=== PATIENT | female | born 1990 | race Caucasian/White ===

== ENCOUNTER 2022-05-17 11:56 | Outpatient (REF) | payer MEDICAID, SELFPAY ==
[2022-05-17 18:13] LABS: CT PCR NOT DETECTED (Not Detect.); NG PCR NOT DETECTED (Not Detect.)
[2022-05-18 13:00] LABS: BV Int Neg Control Negative (Negative); BV Int Pos Control Positive (Positive)
[2022-05-21 19:47] LABS: HPV mRNA E6/E7 rflx Not Detected (Not Detected)
== END 2022-05-17 11:57 | disposition home or self-care (01) ==
LOC: HO.LNP 11:56
PROVIDERS: Visit Provider Advanced Practice Midwife
DX: Z01.411 Encounter for gynecological examination (general) (routine) with abnormal findings (principal); Z11.51 Encounter for screening for human papillomavirus (HPV); N93.0 Postcoital and contact bleeding; R10.2 Pelvic and perineal pain; Z20.2 Contact with and (suspected) exposure to infections with a predominantly sexual mode of transmission
CPT/HCPCS: 87480; 87491; 87510; 87591; 87624; 87660; 88142

== ENCOUNTER 2022-07-02 12:51 | Outpatient (REF) | payer MEDICAID, SELFPAY ==
--- NOTE | ~2022-07-02 | US_ITS ---
EXAMINATION: US PELVIS CLINICAL INFORMATION: Post coital and contact bleeding. COMPARISON: Previous pelvic ultrasound most recent January 2017 TECHNIQUE: Ultrasound of the pelvis is performed using both transabdominal and transvaginal transducers along with Doppler. Transvaginal imaging is performed due to inadequate visualization transabdominally. FINDINGS: The uterus is anteverted and measures 9.7 x 5.5 x 7.2 cm in dimension. No focal uterine lesion. Endometrial thickness is normal measuring 0.9 cm. IUD on January 2017 exam no longer seen. The ovaries are normal. The right ovary measures 2.2 x 1.3 x 1.9 cm. The left ovary measures 2.8 x 1.9 x 1.6 cm. There is no fluid in the pelvis. US/US pelvic and transvaginal IMPRESSION: Normal pelvic ultrasound. IUD on January 2017 exam no longer seen.
== END 2022-07-02 12:52 | disposition home or self-care (01) ==
LOC: HO.US 12:51
PROVIDERS: PCP Family Medicine; Visit Provider Advanced Practice Midwife
DX: N93.0 Postcoital and contact bleeding (principal)
CPT/HCPCS: 76830; 76856

== ENCOUNTER 2023-05-27 11:17 | Outpatient (REF) | payer MEDICAID, SELFPAY ==
[2023-05-27 13:33] LABS: Alanine Aminotransferase 10 U/L (0-31); Alkaline Phosphatase 50 U/L (39-117); Anion Gap 11 (12-20); Aspartate Amino Transferase 15 U/L (5-31); Bilirubin Total 0.9 mg/dL (0.0-1.0); Blood Urea Nitrogen 10 mg/dL (9-16); Carbon Dioxide 23 mmol/L (22-29); Chloride 107 mmol/L (96-108); Cholesterol 186 mg/dL (<200); Estimated Glomerular Filt Rate > 60; Glucose Random 87 mg/dL (60-115); HDL Cholesterol 38 mg/dL (>40); LDL Cholesterol Calculated 121 mg/dL (<100); Sodium 137 mmol/L (135-145); Total Protein 7.5 g/dL (6.5-8.0); Triglycerides 135 mg/dL (<150)
[2023-05-29 19:38] LABS: TS Negative Control Passed; TS Panel A 0; TS Panel B 0; TS Positive Control Passed; TSpotTB Negative (Negative)
== END 2023-05-27 11:18 | disposition home or self-care (01) ==
LOC: HO.HHCL 11:17
PROVIDERS: Visit Provider Internal Medicine Geriatric Medicine
DX: Z00.00 Encounter for general adult medical examination without abnormal findings (principal); Z11.1 Encounter for screening for respiratory tuberculosis; Z13.1 Encounter for screening for diabetes mellitus; Z13.220 Encounter for screening for lipoid disorders
CPT/HCPCS: 36415; 80053; 80061; 86481

== ENCOUNTER 2023-06-18 18:33 | Outpatient (REF) | payer MEDICAID, SELFPAY | END 2023-06-18 18:34 | disposition home or self-care (01) | LOC: HO.HHCLNP 18:33 | PROVIDERS: Visit Provider Nurse Practitioner Family | DX: R07.0 Pain in throat (principal) | CPT/HCPCS: 87070 ==

== ENCOUNTER 2023-11-29 15:44 | Outpatient (REF) | payer MEDICAID, SELFPAY ==
[2023-11-30 09:26] LABS: CT PCR NOT DETECTED (Not Detect.); NG PCR NOT DETECTED (Not Detect.)
[2023-11-30 11:14] LABS: BV Int Neg Control Negative (Negative); BV Int Pos Control Positive (Positive)
[2023-12-06 22:14] LABS: HPV mRNA E6/E7 rflx Not Detected (Not Detected)
== END 2023-11-29 15:45 | disposition home or self-care (01) ==
LOC: HO.LNP 15:44
PROVIDERS: Visit Provider Advanced Practice Midwife
DX: Z12.4 Encounter for screening for malignant neoplasm of cervix (principal); Z11.51 Encounter for screening for human papillomavirus (HPV); N39.0 Urinary tract infection, site not specified; R10.2 Pelvic and perineal pain; N94.10 Unspecified dyspareunia
CPT/HCPCS: 0353U; 87480; 87510; 87624; 87660; 88142; 99212

== ENCOUNTER 2023-11-29 15:44 | Outpatient (AMB) | payer MEDICAID, SELFPAY ==
--- NOTE | 2023-11-29 15:50 | A.OFFVIS_ITS ---
Intake Vital Signs 11/29/23 16:01 Height 5 ft 5 in Weight 248 lb BMI 41.3 BP 124/76 Intake Visit Reasons: Pain with intercourse Guitar Maker Required: No Information Interpreted: non-clinical & clinical Wood Boatbuilder Apprentice: Wood Boatbuilder Apprentice Present (Neela PRUETT) Accompanied by: Self / Same As Patient Allergies polyethylene glycol 3350 [From Miralax] Allergy (Mild, Verified 11/29/23 15:54) Hives Is last menstrual period known: Yes Last menstrual period: 11/13/23 HPI HPI Comments History of Present Illness Details Patient is here today with complaints of pain with intimacy, bleeding with intimacy, heavy at times, occasional right lower quad pelvic pain. She is currently using condoms for contraception. 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 Sexual orientation: Straight/Heterosexual Gender identity: Female Female Reproductive History Menstrual Date of last menstrual period: 11/13/23 control method: condoms Review of Systems Const All systems reviewed & are unremarkable except as noted in HPI and below Physical Exam Vital Signs: Last Vital Signs BP 124/76 11/29/23 16:01 BMI result Body Mass Index 41.3 Const General: cooperative, healthy appearing and no acute distress Orientation/consciousness: patient oriented x3 GI Inspection: Yes normal to inspection Palpation (GI): Soft to palpation and Other GI palpation findings present (Nontender) Rectal Exam - Female: visual inspection normal General: Yes bladder normal to palpation External Female Exam: normal appearance of the urethra Speculum Exam - Vagina: normal appearance of the vagina, normal palpation and normal vaginal discharge Speculum Exam - Cervix: normal appearance of the cervix, normal palpation and Other cervical findings present (Ectopy with superficial blood vessels bled readily with Pap) Bimanual exam- vagina & uterus: normal bimanual exam, normal palpation, uterine size normal, bladder normal to palpation, normal palpation, uterine shape normal and non-tender Bimanual Exam- Adnexa, other: normal adnexae Neuro General: patient oriented x3 Assessment & Plan Assessment & Plan (1) PCB (post coital bleeding): Code(s): N93.0 - Postcoital and contact bleeding (2) Pelvic pain: Code(s): R10.2 - Pelvic and perineal pain (3) Dyspareunia, female: Code(s): N94.10 - Unspecified dyspareunia Plan Discussed: Workup to include pelvic ultrasound, cultures, Pap smear. Await results for plan of care follow up in person for results. Complete physical for annual exam at her follow up. All of her questions and concerns were addressed to the best of my ability and shared decision making. She is agreeable to the plan of care. This note is constructed using voice recognition software. While every effort has been made to ensure accuracy, director of infection prevention errors may have been included. Orders: Orders US pelvic and transvaginal Today N93.0 - Postcoital and contact bleeding, R10.2 - Pelvic and perineal pain Coding Level of Care Code Est Pt Level 4 (29838) Diagnoses PCB (post coital bleeding) N93.0 Pelvic pain R10.2 Dyspareunia, female N94.10
[2023-11-29 16:01] VITALS: BP 124/76; BMI 41.3
== END 2023-11-29 16:23 | disposition home or self-care (01) ==
LOC: HO.HWS 15:45
PROVIDERS: Visit Provider Advanced Practice Midwife
DX: N93.0 Postcoital and contact bleeding (principal); R10.2 Pelvic and perineal pain; N94.10 Unspecified dyspareunia
CPT/HCPCS: 99214

== ENCOUNTER 2023-12-18 11:01 | Outpatient (REF) | payer MEDICAID, SELFPAY ==
--- NOTE | ~2023-12-18 | US_ITS ---
EXAMINATION: US PELVIS CLINICAL INFORMATION: Pelvic and perineal pain, last menstrual period 12/16/2023. COMPARISON: 07/02/2022. TECHNIQUE: Ultrasound of the pelvis is performed using both transabdominal and transvaginal transducers along with Doppler. Transvaginal imaging is performed due to inadequate visualization transabdominally. FINDINGS: The uterus is anteverted and measures 11.2 x 3.7 x 0.4 cm. No discrete fibroids are appreciated. Nabothian cysts in the cervix. Double wall endometrial thickness is 10 mm. Limited visualization of uterine fundus. Endometrium appears heterogeneous. Limited visualization due to bowel gas and uterine positioning. No significant free fluid appreciated. Right ovary measures 3.1 x 1.4 x 2.0 cm, volume 4.5 mL. Left ovary measures 2.8 x 1.2 x 1.6 cm, volume 2.8 mL. Bilateral ovaries are grossly unremarkable; however, visualization is substantially limited. US/US pelvic and transvaginal IMPRESSION: 1. No discrete fibroids. 2. Endometrial thickness is 10 mm. Endometrium appears heterogeneous. 3. Bilateral ovaries are grossly unremarkable; however, visualization is substantially limited. 4. Nabothian cysts in the cervix.
== END 2023-12-18 11:02 | disposition home or self-care (01) ==
LOC: HO.US 11:01
PROVIDERS: PCP Family Medicine; Visit Provider Advanced Practice Midwife
DX: R10.2 Pelvic and perineal pain (principal); N93.0 Postcoital and contact bleeding
CPT/HCPCS: 76830; 76856

== ENCOUNTER 2024-01-01 15:53 | Outpatient (AMB) | payer MEDICAID, SELFPAY ==
[2024-01-01 15:56] VITALS: BP 90/64; BMI 41.3
--- NOTE | 2024-01-01 15:56 | MHC.OFFVIS ---
Vital Signs 01/01/24 15:56 Height 5 ft 5 in Weight 248 lb BMI 41.3 BP 90/64 Intake Visit Reasons: Ultra sound follow up Intake Note: pt declines breast exam today Engineering Design Manager: Engineering Design Manager Present Allergies polyethylene glycol 3350 [From Miralax] Allergy (Mild, Verified 01/01/24 15:56) Hives Is last menstrual period known: Yes HPI Comments Details: Patient is here today for a follow up ultrasound due to postcoital bleeding workup. She currently is still having postcoital bleeding. 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 Sexual orientation: Straight/Heterosexual Gender identity: Female Review of Systems Const All systems reviewed & are unremarkable except as noted in HPI and below Endo Reports no additional complaints Physical Exam Vital Signs: Last Vital Signs BP 90/64 01/01/24 15:56 BMI result Body Mass Index 41.3 Const General: cooperative, healthy appearing and no acute distress Psych Appearance: well kempt Attitude: cooperative Thought process: Normal thought process present Results Reviewed Results Reviewed: [address] [address] Ultrasound Report Signed Patient: Violeta Dong MR#: [id number] : 1990 Acct:[id number] Age/Sex: 33 / F ADM Date: 12/18/23 Loc: [facility].US Attending Dr: Tamia Rosario CNM Ordering Physician: Tamia Rosario CNM Date of Service: 12/18/23 Procedure(s): US pelvic and transvaginal Accession Number(s): [id number] cc: Eva Barajas DO; Tamia Rosario CNM~ EXAMINATION: US PELVIS CLINICAL INFORMATION: Pelvic and perineal pain, last menstrual period 12/16/2023. COMPARISON: 07/02/2022. TECHNIQUE: Ultrasound of the pelvis is performed using both transabdominal and transvaginal transducers along with Doppler. Transvaginal imaging is performed due to inadequate visualization transabdominally. FINDINGS: The uterus is anteverted and measures 11.2 x 3.7 x 0.4 cm. No discrete fibroids are appreciated. Nabothian cysts in the cervix. Double wall endometrial thickness is 10 mm. Limited visualization of uterine fundus. Endometrium appears heterogeneous. Limited visualization due to bowel gas and uterine positioning. No significant free fluid appreciated. Right ovary measures 3.1 x 1.4 x 2.0 cm, volume 4.5 mL. Left ovary measures 2.8 x 1.2 x 1.6 cm, volume 2.8 mL. Bilateral ovaries are grossly unremarkable; however, visualization is substantially limited. US/US pelvic and transvaginal IMPRESSION: 1. No discrete fibroids. 2. Endometrial thickness is 10 mm. Endometrium appears heterogeneous. 3. Bilateral ovaries are grossly unremarkable; however, visualization is substantially limited. 4. Nabothian cysts in the cervix. Dictated By: Maribell Muse MD Signed By: <Electronically signed by Maribell Muse MD in OV> 12/24/23 1137 DD/ 1208 TD/TT: Cash Poster: Assessment & Plan Assessment & Plan (1) Encounter to discuss test results: Code(s): Z71.2 - Person consulting for explanation of examination or test findings (2) PCB (post coital bleeding): Code(s): N93.0 - Postcoital and contact bleeding Plan Reviewed ultrasound findings, Pap and lab work all normal ranges. Plan next step is to do an endometrial biopsy and an ECC. Patient can not stay today for procedure and is agreed to reschedule an appointment for the biopsy. Counseled regarding pre procedure planning advised to eat and have something to drink and take 3 Advil 1 hour before her procedure time. All of her questions and concerns were addressed to the best of my ability. She is agreeable to the plan of care. This note is constructed using voice recognition software. While every effort has been made to ensure accuracy, concession supervisor errors may have been included. Coding Level of Care Code Est Pt Level 3 (08984) Diagnoses Encounter to discuss test results Z71.2 PCB (post coital bleeding) N93.0
== END 2024-01-01 16:24 | disposition home or self-care (01) ==
LOC: HO.HWS 15:53
PROVIDERS: PCP Family Medicine; Visit Provider Advanced Practice Midwife
DX: Z71.2 Person consulting for explanation of examination or test findings (principal); N93.0 Postcoital and contact bleeding
CPT/HCPCS: 99213

== ENCOUNTER → 2024-01-01 15:53 | Outpatient (BNVA) | payer MEDICAID, SELFPAY | PROVIDERS: PCP Family Medicine; Visit Provider Advanced Practice Midwife | DX: N93.0 Postcoital and contact bleeding (principal); Z71.2 Person consulting for explanation of examination or test findings | CPT/HCPCS: 99212 ==

== ENCOUNTER 2024-01-07 09:58 | Outpatient (REF) | payer MEDICAID, SELFPAY | END 2024-01-07 09:59 | disposition home or self-care (01) | LOC: HO.LAB 09:58 | PROVIDERS: PCP Family Medicine; Visit Provider Advanced Practice Midwife | DX: N93.0 Postcoital and contact bleeding (principal) | CPT/HCPCS: 58100; 81025; 88305 ==

== ENCOUNTER 2024-01-07 09:58 | Outpatient (AMB) | payer MEDICAID, SELFPAY ==
--- NOTE | 2024-01-07 10:05 | A.OFFVIS_ITS ---
Vital Signs 01/07/24 10:20 BP 98/66 Intake Visit Reasons: EMB/ECC/30 mins Climatology Professor: Climatology Professor Present (Sunita) Allergies polyethylene glycol 3350 [From Miralax] Allergy (Mild, Verified 01/07/24 10:20) Hives HPI Comments Details: Patient is here today for an EMB and ECC due to postcoital bleeding. 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 Sexual orientation: Straight/Heterosexual Gender identity: Female Review of Systems Const All systems reviewed & are unremarkable except as noted in HPI and below Physical Exam Vital Signs: Last Vital Signs BP 98/66 01/07/24 10:20 Const General: cooperative, healthy appearing and no acute distress Orientation/consciousness: patient oriented x3 GI Inspection: Yes normal to inspection Palpation (GI): Soft to palpation and Other GI palpation findings present (Nontender) Rectal Exam - Female: visual inspection normal General: Yes bladder normal to palpation External Female Exam: normal appearance of the urethra Speculum Exam - Vagina: normal appearance of the vagina, normal palpation and normal vaginal discharge Speculum Exam - Cervix: normal appearance of the cervix and normal palpation ([place] of ectopy) Bimanual exam- vagina & uterus: normal bimanual exam, normal palpation, uterine size normal, bladder normal to palpation, normal palpation ([place] of ectopy), uterine shape normal and non-tender Bimanual Exam- Adnexa, other: normal adnexae Neuro General: patient oriented x3 Office Procedures Endometrial Biopsy Details: The patient is here today for an endometrial biopsy and endocervical curettage due to post coital bleeding to rule out any pathology including atypical, hyperplasia or cancer cells of the uterus. She was counseled regarding anticipatory guidance for the procedure including the risks for pain, infection, bleeding, perforation, potential injury to the tissues may include the cervix, uterus, tubes, bladder and bowels. These injuries may include further treatment and evaluation including surgery, blood transfusions, antibiotics, hospitalizations and anesthesia. Permanent injury and scarring can occur. She was consented for the procedure, and the consent forms were signed. She is agreeable to have the procedure today. All questions were answered. Endometrial Biopsy Procedure: The patient was placed in the dorsal lithotomy position and a sterile speculum inserted. Using aseptic technique for the procedure. The cervix was cleansed with Betadine x 3 swabs. A single toothed tenaculum was placed on the cervix for stabilization and the uterus was sounded to 9 cm with a 4mm pipelle for 3 passes. Endocervical curettage completed on surfaces of the endocervical canal. Minimal bleeding was observed. The tissue sample was placed in formalin in a patient labeled container by staff assisting and sent to the pathology department for processing and interpretation. The patient tolerate the procedure well and was in good condition when leaving the department. Endometrial Biopsy Post Procedure Care: Nothing in the vagina including: tampons, douching or intimacy until all the bleeding has subsided. There may be some post procedure bleeding for several days, this bleeding is usually light and may turn to a light brown or pink color. Mild cramps may occurs. Nothing in the vaginal including: tampons, douching, or intimacy until all the b leeding has subsided. You may take an over the counter mild analgesic such as Tylenol or Advil (if no allergies) per the manufactures recommendation on dosing, frequency, and follow the directions completely. Call the office if any: fever (over 100.4), flu like symptoms, abdominal pain (worse than cramping), foul smelling, infected appearing vaginal discharge, or heavy bleeding. If indicated: Use condoms to prevent and STI's, and only after the bleeding has stopped completely. Return to the office in 2 weeks for results and plan of care. This note is constructed using voice recognition software. While every effort has been made to ensure accuracy, customer sales advisor errors may have been included. [id number] Biopsy Results AMB Test Urine AMB Test Urine Negative Last Edit by FLYNN Cooney on 01/07/24 10:21 Results Reviewed Results Reviewed: Laboratory Last Values [facility] Negative 01/07/24 10:20 Assessment & Plan Assessment & Plan (1) PCB (post coital bleeding): Code(s): N93.0 - Postcoital and contact bleeding Plan See procedure notes. Return to the office in 2 weeks for test. This note is constructed using voice recognition software. While every effort has been made to ensure accuracy, customer sales advisor errors may have been included. Orders: Orders AMB HCG Urine Test 01/07/24 Z32.02 - Encounter for test, result negative Surgical 01/07/24 N93.0 - Postcoital and contact bleeding Bacterial Vaginosis Panel 01/07/24 N89.8 - Other specified noninflammatory disorders of vagina Coding Level of Care Code Procedure Only Diagnoses PCB (post coital bleeding) N93.0 CPT Codes Endometrial Biopsy - CPT: 70250-Ejlrvbphdtn Biopsy ([id number]) Comment ECC completed add coding
[2024-01-07 10:20] VITALS: BP 98/66
== END 2024-01-07 10:59 | disposition home or self-care (01) ==
PROVIDERS: PCP Family Medicine; Visit Provider Advanced Practice Midwife
DX: N93.0 Postcoital and contact bleeding (principal)
CPT/HCPCS: 58100

== ENCOUNTER 2024-01-22 12:36 | Outpatient (AMB) | payer MEDICAID, SELFPAY ==
--- NOTE | 2024-01-22 12:37 | A.OFFVIS_ITS ---
Intake Visit Reasons: EMB/ECC Results Tripper Required: No Emergency Spill Response Technician: Emergency Spill Response Technician Present Allergies polyethylene glycol 3350 [From Miralax] Allergy (Mild, Verified 01/22/24 12:37) Hives Is last menstrual period known: Yes Last menstrual period: 01/17/24 Post menopausal: No Patient : No HPI Comments Details: [facility] visit 12:52-1:01. Phone call due to Covid 19 Pandemic. I spent 8 minutes speaking with the patient on the phone plus an additional 5 minutes reviewing the chart and 5 minutes updating the medical record for a total of 28 minutes. Patient presents via phone to discuss: Test results for EMB and ECC completed due to postcoital bleeding. Patient reports she still having symptoms. She was interested in cryotherapy treatment. 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 Sexual orientation: Straight/Heterosexual Gender identity: Female Female Reproductive History Menstrual Date of last menstrual period: 01/17/24 control method: condoms Review of Systems Const All systems reviewed & are unremarkable except as noted in HPI and below Endo Reports no additional complaints Physical Exam Const General: cooperative, healthy appearing and no acute distress Psych Appearance: well kempt Attitude: cooperative Thought process: Normal thought process present Telehealth Telehealth Telehealth Platform: [employer] Location of provider rendering services: practice address Location of patient: address on file Patient Identification confirmed using: Name, : Yes Telehealth method: video Patient verbally consented to treatment: Yes Patient verbally consented to billing insurance company: Yes Patient informed of any privacy concerns related to visit: Yes Results Reviewed Results Reviewed: ___ Name: Violeta Dong Age/Sex: 33/F Attending: Tamia Rosario CNM : 1990 Submitted by: Tamia Rosario CNM Copies to: Eva Barajas DO MR #: [id number] Status: DEP REF Collected: 01/07/24 [facility] Re[facility]: 01/07/24 Diagnosis A. Endometrium, biopsy: Early secretory endometrium; negative for atypia or hyperplasia. B. Endocervix, curettage: - Few superficial fragments of endocervical and squamous epithelium within normal limits. - Small fragment of benign endometrium. - No atypia identified. Clinical History PCB Microscopic Description A, B. Microscopic sections reviewed. Material Received A. EMB B. ECC Gross Description Received in two parts. Part A: Received in formalin labeled ?EMB? is a 2.0 x 2.0 x 0.5 cm aggregate of multiple irregular and tubular cast fragments of congested and hemorrhagic magana-pink and red-maroon tissue with scant mucus and blood, submitted in toto in a cassette labeled A. Part B: Received in formalin labeled ?ECC? is a 0.9 x 0.6 x 0.15 cm aggregate of predominantly mucus and blood and fragments of congested and hemorrhagic red-maroon tissue, submitted in toto in a cassette labeled B. CEDS Copies To Eva Barajas DO [address] [place] [address] Patient: Violeta Dong Age/Sex: 33/F MR#: [id number] Page 1 of 2 Assessment & Plan Assessment & Plan (1) Encounter to discuss test results: Code(s): Z71.2 - Person consulting for explanation of examination or test findings (2) PCB (post coital bleeding): Code(s): N93.0 - Postcoital and contact bleeding Plan Discussed: EMB and ECC findings per noted with report today. Options for treatment including cryotherapy(not offered here), electrocautery(more invasive), or boric acid therapy. She opts to do boric acid therapy at home using 600 mg capsules a boric acid nightly for 14 days. Boric acid protocol per BV use shared-reference to dose and where you can purchase the capsules. Follow up with office by contact after completing therapy to discuss results. If considering electrocautery therapy that can be provided here, if opting for cryotherapy referral will be placed to outside provider. All of her questions and concerns were addressed to the best of my ability and shared decision making. She is agreeable to the plan of care. Coding Level of Care Code Tele Est Pt Level 3 (68038) Diagnoses Encounter to discuss test results Z71.2 PCB (post coital bleeding) N93.0
== END 2024-01-22 13:33 | disposition home or self-care (01) ==
LOC: HO.HWS 12:36
PROVIDERS: PCP Family Medicine; Visit Provider Advanced Practice Midwife
DX: Z71.2 Person consulting for explanation of examination or test findings (principal); N93.0 Postcoital and contact bleeding
CPT/HCPCS: 99213

== ENCOUNTER → 2024-01-22 12:36 | Outpatient (BNVA) | payer MEDICAID, SELFPAY | PROVIDERS: PCP Family Medicine; Visit Provider Advanced Practice Midwife ==

== ENCOUNTER 2024-06-01 10:01 | Outpatient (REF) | payer MEDICAID, SELFPAY ==
[2024-06-04 02:24] LABS: TS Negative Control Passed; TS Panel A 0; TS Panel B 1; TS Positive Control Passed; TSpotTB Negative (Negative)
== END 2024-06-01 10:02 | disposition home or self-care (01) ==
LOC: HO.HHCL 10:01
PROVIDERS: Visit Provider Family Medicine
DX: Z00.00 Encounter for general adult medical examination without abnormal findings (principal); K21.9 Gastro-esophageal reflux disease without esophagitis; Z68.39 Body mass index [BMI] 39.0-39.9, adult; Z23 Encounter for immunization
CPT/HCPCS: 36415; 86481

== ENCOUNTER 2024-07-01 11:25 | Outpatient (REF) | payer MEDICAID, SELFPAY ==
[2024-07-01 13:21] LABS: Hematocrit 37.4 % (37.0-47.0); Hemoglobin 12.7 g/dl (12.0-16.0); Mean Corpuscular Hemoglobin 28.9 pg (27.0-33.0); Mean Corpuscular Volume 85.2 fL (80.0-98.0); Mean Platelet Volume 10.2 fL (9.4-12.3); Platelet Count 432 X10*3/uL (160-400); Red Blood Count 4.39 X10*6/uL (4.20-5.50); Red Cell Distribution Width 12.8 % (11.0-16.0); White Blood Count 10.2 X10*3/uL (4.8-10.8)
[2024-07-01 13:29] LABS: Estimated Average Glucose 105 mg/dL; Hemoglobin A1c % 5.3 % (<6.0); Total Hemoglobin (HGBA1C) 3353.0297 umol/L
[2024-07-01 13:50] LABS: Alanine Aminotransferase 14 U/L (0-31); Albumin Level 4.2 g/dL (3.5-5.0); Alkaline Phosphatase 47 U/L (39-117); Anion Gap 13 (12-20); Aspartate Amino Transferase 25 U/L (5-31); Bilirubin Direct 0.4 mg/dL (0.0-0.5); Bilirubin Total 1.5 mg/dL (0.0-1.0); Blood Urea Nitrogen 12 mg/dL (9-16); Calcium 9.2 mg/dL (8.4-10.2); Carbon Dioxide 24 mmol/L (22-29); Chloride 105 mmol/L (96-108); Cholesterol 172 mg/dL (<200); Estimated Glomerular Filt Rate > 60; Glucose Random 87 mg/dL (60-115); HDL Cholesterol 45 mg/dL (>40); LDL Cholesterol Calculated 103 mg/dL (<100); Potassium 3.7 mmol/L (3.3-5.1); Sodium 138 mmol/L (135-145); Total Protein 7.8 g/dL (6.5-8.0); Triglycerides 122 mg/dL (<150)
[2024-07-01 13:52] LABS: Free T4 (Free Thyroxine) 0.91 ng/dL (0.71-1.85); Vitamin D 25-OH Total 37.6 ng/mL (>30)
[2024-07-01 18:42] LABS: CT PCR NOT DETECTED (Not Detect.); NG PCR NOT DETECTED (Not Detect.)
[2024-07-02 08:21] LABS: Hepatitis A Antibody IgG REACTIVE (Nonreactive); ~Hepatitis A Antibody IgG 11.57 S/CO (0.00-0.99)
[2024-07-02 08:33] LABS: HBS Num1 > 1000.00 mIU/mL (0-7.99); HBc Num1 0.17 S/CO (0.00-0.79); HIV AB/AG Nonreactive (Nonreactive); HIV Num 1 0.06 S/CO (0.00-0.99); Hepatitis B Core Antibody Nonreactive (Nonreactive); Hepatitis B Surface Antigen Negative (Negative); ~HepC Num1 0.22 S/CO (0.00-0.79); ~Hepatitis B Surface Antibody REACTIVE (Nonreactive); ~Hepatitis C Antibody Nonreactive (Nonreactive)
[2024-07-02 20:59] LABS: Rubella IgG Antibody 2.28 Index; Rubeola IgG (Measles) >300.00 AU/mL
[2024-07-07 16:23] LABS: RPR Rapid Plasma Reagin NON-REACTIVE (NON-REACTIVE)
== END 2024-07-01 11:26 | disposition home or self-care (01) ==
LOC: HO.HHCL 11:25
PROVIDERS: Visit Provider Family Medicine
DX: Z00.00 Encounter for general adult medical examination without abnormal findings (principal); Z11.4 Encounter for screening for human immunodeficiency virus [HIV]; Z11.3 Encounter for screening for infections with a predominantly sexual mode of transmission; K21.9 Gastro-esophageal reflux disease without esophagitis
CPT/HCPCS: 36415; 80048; 80061; 80076; 82306; 83036; 84439; 84443; 85027; 86592; 86704; 86706; 86708; 86735; 86762; 86765; 86787; 86803; 87340; 87389; 87491; 87591

== ENCOUNTER 2025-02-17 12:43 | Outpatient (REF) | payer MEDICAID, SELFPAY ==
--- NOTE | ~2025-02-17 | XR_ITS ---
EXAMINATION: XR KNEE, LEFT CLINICAL INFORMATION: bl knee pain/ hx right knee arthosocopy 2010 + left knee sprain on 2020 COMPARISON: None available. TECHNIQUE: Three views of the left knee. FINDINGS: No fracture, dislocation, or suspicious bone lesion. Normal bone mineralization. Normal alignment. Mild to moderate medial compartment osteoarthrosis. Lateral and patellofemoral compartments appear preserved. No significant joint effusion. Soft tissues appear normal. XR/XR knee LT 3V IMPRESSION: 1. No acute bony abnormalities. No joint effusion. 2. Mild to moderate medial compartment osteoarthrosis. Electronically signed by: River Miller MD 02/17/2025 01:58 PM EDT
--- NOTE | ~2025-02-17 | XR_ITS ---
EXAMINATION: XR KNEE, RIGHT CLINICAL INFORMATION: bl knee pain/ hx right knee arthosocopy 2010 + left knee sprain on 2020 COMPARISON: None available. TECHNIQUE: Four views of the right knee. FINDINGS: No fracture, dislocation, or suspicious bone lesion. Normal bone mineralization. Normal alignment. Moderate medial compartment osteoarthrosis. Lateral and patellofemoral compartments appear preserved. No significant joint effusion. Soft tissues appear normal. XR/XR knee RT 3V IMPRESSION: 1. No acute bony abnormalities. No joint effusion. 2. Moderate medial compartment osteoarthrosis. Electronically signed by: River Miller MD 02/17/2025 01:56 PM EDT
--- OUTSIDE RECORDS SUMMARY | 2025-02-17 14:32 | XMS_ITS | Clinical Summary ---
Author Organization [employer] Address [address] [place] [address] [address] [place] [address] Care Team Providers Care Cartridge Filler Name Role Phone Eva Barajas DO Primary Care Provider + [phone] Allergies Active Allergy Reactions Criticality Noted Date Comments Polyethylene Glycol Dizziness,Hives,Shor tness of breath High 05/27/2023 Polyethylene Glycol 3350 Dizziness 05/01/2021 Other reaction(s): Hives, Nausea / Vomiting Medications meloxicam (Mobic) 15 MG tablet Take 1 tablet (15 mg) by mouth Once per day. 30 tablet 02/17/2025 Active Active Problems Problem Noted Date Diagnosed Date Sprain of right knee 02/17/2025 Assessment & Plan (02/17/2025 12:22 PM EDT): It seems that she has underlying OA getting worse over the past few years, rule out ligamentous or meniscal injury. We discussed treatment options to start with PT and advised to contact puncture, however she prefers to be referred to orthopedics. Will order x-rays and refer to orthopedics, advised weight reduction. Use meloxicam daily x 1 to 2 weeks and Tylenol as needed. Advised to use a hinged knee brace for daily activities Sprain of left knee 02/17/2025 Assessment & Plan (02/17/2025 12:23 PM EDT): Patient seems to have OA of both knees. We discussed treatment options to start with PT and advised to contact puncture, however she prefers to be referred to orthopedics. Will order x-rays and refer to orthopedics, advised weight reduction. Use meloxicam daily x 1 to 2 weeks and Tylenol as needed. 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 06/01/2024 Overview (05/27/2023): HRHS; nl chrs Encounters Date Type Department Care Team Description 02/17/2025 11:30 AM EDT Office Visit [facility] [address], [place] [phone] Cami King MD Sprain of right knee, unspecified ligament, initial encounter (Primary Dx); Sprain of left knee, unspecified ligament, initial encounter 02/17/2025 Travel 02/16/2025 Telephone [facility] [address] [place] [address] Eva Barajas DO Chart prep 02/15/2025 Telephone [facility] [address] [place] [address] Eva Barajas DO Referral from Last 3 Months Immunizations Immunization Administration Dates Next Due DTaP 07/11/2019, 2,07/09/1991,12/16,04/02/1990,01/31/1989 HPV, Quadrivalent 09/16/2007,03/28/2007 Hep B, Adolescent or Pediatric 2,11/15/2011,03/28/2007,11/02,07/03/2002 Hep B, adult 06/04/2012 IPV 07/09/1991, 1,04/02/1990,01/31 Influenza injectable quadriv alent IIV4 with preservative 07/07/2020,05/29/2016 Influenza injectable quadriv alent preservative free 05/27/2023,07/12/2021,07/11/2019,06/28,06/01/2017,07/25/2015 Influenza, Split (incl. melisa fied surface antigen) 06/04/2012 Influenza, seasonal, injecta ble, preservative free 06/01/2024,07/31/2014 MMR 10/23/2011,07/09/1992,12/16/1990 Meningococcal MCV4P ACYW-135 03/28/2007 Mumps 06/04/2012 Rubella 06/04/2012 Tdap 11/05/2011 Varicella 06/04/2012,10/23/2011,01/31/1995 Family History Medical History Relation Name Comments Hypoplastic Left Heart Syndrom Daughter MVA Father Diabetes Maternal Grandmother Heart disease Maternal Grandmother Hyperlipidemia Maternal Grandmother Hypertension Maternal Grandmother Hyperlipidemia Mother Hypertension Mother No Known Problems Other Relation Name Status Comments Daughter Father Maternal Grandmother Mother Other Social History Tobacco Use Types Packs/Day Years Used Date Smoking Tobacco: Never Smokeless Tobacco: Never Tobacco Cessation:Counseling Given: Not Answered Alcohol Use Standard Drinks/Week Comments Never 0 (1 standard drink = 0.6 oz pur e alcohol) Depression Answer Date Recorded Patient Health Questionnaire-9 Score 0 05/27/2023 Housing Stability Answer Date Recorded What is your housing situation today? I have jeweljose hernandez 06/17/[address] you li ve. Do you have problems with any of the following? None of the above 06/17/2023 Food Insecurity Answer Date Recorded Within the past 12 months, y ou worried that your food would run out before you got money to buy more: Never True 06/17/2023 Within the past 12 months,th e food you bought just didn't last and you didn't have enough money to get more: Never True Transportation Answer Date Recorded In the past 12 months, has l ack of transportation kept you from medical appts, meetings, work or from getting things needed for daily living? No 06/17/2023 Utilities Answer Date Recorded In the past 12 months, has t he electric, gas, oil or water company threatened to shut off services in your home? No 06/17/2023 Depression Answer Date Recorded Patient Health Questionnaire-2 Score 0 05/27/2023 Internet Access Answer Date Recorded Internet Access Q1 Yes 05/22/2024 Internet Access Q2 Not on file 05/22/2024 Comments No Sex and Gender Information Value Date Recorded Sex Assigned at Female 07/02/2022 10:17 AM EDT Legal Sex Female 10:17 AM EDT Gender Identity Female 07/02/2022 10:17 AM EDT Sexual Orientation Choose not to disclose 2022 11:33 AM EDT Sexual Orientation Straight 05/26/2023 11 :33 AM EDT Last Filed Vital Signs Vital Sign Reading Time Taken Comments Blood Pressure 110/70 02/17/2025 11:34 AM EDT Pulse 88 02/17/2025 11:34 AM EDT Temperature 36.3 C (97.3 F) 06/01/2024 9:20 AM EDT Respiratory Rate 16 02/17/2025 11:34 AM EDT Oxygen Saturation 99% 06/01/2024 9:20 AM EDT Inhaled Oxygen Concentration - - Weight 114 kg (251 lb) 02/17/2025 11:34 AM EDT Height 167.6 cm (5' 6 ) 02/17/2025 11:34 AM EDT Body Mass Index 40.51 02/17/2025 11:34 AM EDT Plan of Treatment Health Maintenance Due Date Last Done Comments Disability Screening 1988 Alcohol/Substance Use Screening 2000 Family Planning (PISQ) 2003 HPV Vaccines (3 - 3-dose series) 12/09/2007 09/16/2007, 03/28/2007 Pap Smear 2009 COVID-19 Vaccine ( season) 2024 Depression Screening 05/27/2024 05/27/2023, 05/27/20 23 SDOH Screening 05/22/2025 05/22/2024 Tobacco Screening 06/01/2025 06/01/2024 Cervical Cancer Screening 05/17/2027 HPV/Cotest 05/17/2027 05/17/2022, 05/17/2022 DTaP/Tdap/Td Vaccines (7 - Td or Tdap) 07/11/2029 07/11/2019, 11/05/2011, 05/05/1992, Additional history exists Zoster Vaccines (1 of 2) 2038 RSV Patients and Patients Aged 60 years or older (1 - 1-dose 75+ series) 2063 IPV Vaccines Completed 07/09/1991, 10/31, 04/02/1990, Additional history exists Meningococcal Vaccine Completed 03/28/2007 Hepatitis B Vaccines Completed 06/04/2012, 01/30/2012, 11/15/2011, Additional history exists Influenza Vaccine Completed 06/01/2024, , 07/12/2021, Additional history exists HIV Screening Completed 07/01/2024 Hepatitis C Screening Completed 07/01/2024 HIB Vaccines Aged Out No longer eligi ble based on patient's age to complete this topic Hepatitis A Vaccines Aged Out No long er eligible based on patient's age to complete this topic Meningococcal B Vaccine Aged Out No l onger eligible based on patient's age to complete this topic Pneumococcal Vaccine: Pediatrics (0 to 5 Years) and At-Risk Patients (6 to 49) Years Aged Out No longer eligible based on patient's age to complete this topic RSV under 20 months Aged Out No longe r eligible based on patient's age to complete this topic Rotavirus Vaccines Aged Out No longer eligible based on patient's age to complete this topic Procedures Procedure Name Priority Date/Time Associated Diagnosis Comments XR KNEE 3 VIEWS RIGHT Routine 02/17/2025 12:50 PM EDT Sprain of right knee, unspecified ligament, initial encounter Sprain of left knee, unspecified ligament, initial encounter XR KNEE 3 VIEWS LEFT Routine 02/17/2025 12:50 PM EDT Sprain of right knee, unspecified ligament, initial encounter Sprain of left knee, unspecified ligament, initial encounter HEPATITIS C AB W/REFL TO HCV RNA, QN, PCR Routine 07/01/2024 11:29 AM EDT Routine history and physical examination of adult Chronic gastroesophageal reflux disease BMI 39.0-39.9,adult Encounter for immunization HIV 1/2 ANTIGEN/ANTIBODY, FOURTH GENERATION W/RFL Routine 07/01/2024 11:29 AM EDT Routine history and physical examination of adult Chronic gastroesophageal reflux disease BMI 39.0-39.9,adult Encounter for immunization ZZZ HISTORICAL HPV E6/E7 RFLX KEKE 16 18/45 Routine 05/17/2022 11:56 AM EDT from Last 3 Months or Most Recently Relevant to Health Maintenance Results * XR Knee 3 Views Right (02/17/2025 12:50 PM EDT) Anatomical Region Laterality Modality Lower Extremities, Knee Right [facility] 02/17/2025 12:5 0 PM EDT Narrative 02/17/2025 1:59 PM EDT [address] [address] XRay Report Signed Patient: Violeta Dong MR#: [id number] 81 : 1990 Acct:[id number] Age/Sex: 34 / F ADM Date: 02/17/25 Loc: [facility] Attending Dr: Cami King MD Ordering Physician: Cami King MD Date of Service: 02/17/25 Procedure(s): XR knee RT 3V Accession Number(s): [id number] cc: Cami King MD EXAMINATION: XR KNEE, RIGHT CLINICAL INFORMATION: bl knee pain/ hx right knee arthosocopy 2010 + left knee sprain on 2020 COMPARISON: None available. TECHNIQUE: Four views of the right knee. FINDINGS: No fracture, dislocation, or suspicious bone lesion. Normal bone mineralization. Normal alignment. Moderate medial compartment osteoarthrosis. Lateral and patellofemoral compartments appear preserved. No significant joint effusion. Soft tissues appear normal. XR/XR knee RT 3V IMPRESSION: 1. No acute bony abnormalities. No joint effusion. 2. Moderate medial compartment osteoarthrosis. Electronically signed by: River Miller MD 02/17/2025 01:56 PM EDT Dictated By: River Miller MD Signed By: <Electronically signed by River Miller MD in OV> 02/17/25 1356 DD/ 1250 TD/TT: 02/17/25 1310 Production Supervisor Trainee: Procedure Note Donotuseinterpreter, Image - 02/17/[address] [address] XRay Report Signed Patient: Violeta Dong MMR#: [id number] 79 : 1990Acct:[id number] Age/Sex: 34 / FADM Date: 02/17/25 Loc: HO.XRAY Attending Dr: Cami King MD Ordering Physician: Cami King MD Date of Service: 02/17/25 Procedure(s): XR knee RT 3V Accession Number(s): [id number] cc: Cami King MD EXAMINATION: XR KNEE, RIGHT CLINICAL INFORMATION: bl knee pain/ hx right knee arthosocopy 2010 + left knee sprain on 2020 COMPARISON: None available. TECHNIQUE: Four views of the right knee. FINDINGS: No fracture, dislocation, or suspicious bone lesion. Normal bone mineralization. Normal alignment. Moderate medial compartment osteoarthrosis. Lateral and patellofemoral compartments appear preserved. No significant joint effusion. Soft tissues appear normal. XR/XR knee RT 3V IMPRESSION: 1. No acute bony abnormalities. No joint effusion. 2. Moderate medial compartment osteoarthrosis. Electronically signed by: River Miller MD 02/17/2025 01:56 PM EDT Dictated By: River Miller MD Signed By: <Electronically signed by River Miller MD in OV> 02/17/25 1356 DD/ 1250 TD/TT: 02/17/25 1310 Production Supervisor Trainee: Cami King MD IMG XR PROCEDURES Final Result * XR Knee 3 Views Left (02/17/2025 12:50 PM EDT) Anatomical Region Laterality Modality Lower Extremities, Knee Left Radiogra phic Imaging 02/17/2025 12:5 0 PM EDT Narrative 02/17/2025 2:01 PM EDT [address] [address] XRay Report Signed Patient: Violeta Dong MR#: [id number] 81 : 1990 Acct:[id number] Age/Sex: 34 / F ADM Date: 02/17/25 Loc: HO.XRAY Attending Dr: Cami King MD Ordering Physician: Cami King MD Date of Service: 02/17/25 Procedure(s): XR knee LT 3V Accession Number(s): [id number] cc: Cami King MD EXAMINATION: XR KNEE, LEFT CLINICAL INFORMATION: bl knee pain/ hx right knee arthosocopy 2010 + left knee sprain on 2020 COMPARISON: None available. TECHNIQUE: Three views of the left knee. FINDINGS: No fracture, dislocation, or suspicious bone lesion. Normal bone mineralization. Normal alignment. Mild to moderate medial compartment osteoarthrosis. Lateral and patellofemoral compartments appear preserved. No significant joint effusion. Soft tissues appear normal. XR/XR knee LT 3V IMPRESSION: 1. No acute bony abnormalities. No joint effusion. 2. Mild to moderate medial compartment osteoarthrosis. Electronically signed by: River Miller MD 02/17/2025 01:58 PM EDT Dictated By: River Miller MD Signed By: <Electronically signed by River Miller MD in OV> 02/17/25 1358 DD/ 1250 TD/TT: 02/17/25 1310 Production Supervisor Trainee: Procedure Note Donotuseinterpreter, Image - 02/17/2025 [place] [address] XRay Report Signed Patient: Violeta Dong [facility]#: [id number] 79 : 1990Acct:[id number] Age/Sex: 34 / FADM Date: 02/17/25 Loc: [facility] Attending Dr: Cami King MD Ordering Physician: Cami King MD Date of Service: 02/17/25 Procedure(s): XR knee LT 3V Accession Number(s): [id number] cc: Cami King MD EXAMINATION: XR KNEE, LEFT CLINICAL INFORMATION: bl knee pain/ hx right knee arthosocopy 2010 + left knee sprain on 2020 COMPARISON: None available. TECHNIQUE: Three views of the left knee. FINDINGS: No fracture, dislocation, or suspicious bone lesion. Normal bone mineralization. Normal alignment. Mild to moderate medial compartment osteoarthrosis. Lateral and patellofemoral compartments appear preserved. No significant joint effusion. Soft tissues appear normal. XR/XR knee LT 3V IMPRESSION: 1. No acute bony abnormalities. No joint effusion. 2. Mild to moderate medial compartment osteoarthrosis. Electronically signed by: River Miller MD 02/17/2025 01:58 PM EDT RP Dictated By: River Miller MD Signed By: <Electronically signed by River Miller MD in OV> 02/17/25 1358 DD/ 1250 TD/TT: 02/17/25 1310 Production Supervisor Trainee: us Cami King MD IMG XR PROCEDURES Final Result * Hepatitis C Antibody with Reflex to HCV, RNA, Quantitative, Real-Time PCR (07/01/2024 11:29 AM EDT) Pathologist [facility] Hepatitis C Antibody Nonreactive Nonreactive [facility] Comment:Antibodies to HCV no t detected; does not exclude early acuteHCV infection. Blood Venous blood specimen / Unknown 07/01/2024 11:29 AM EDT 07/01/2024 1:07 PM EDT us Eva Barajas DO LAB BLOOD ORDERABLES Final R esult [facility] [address] [place] [phone] * HIV-1/2 Antigen and Antibodies, Fourth Generation, with Reflexes (07/01/2024 11:29 AM EDT) HIV AB/AG Nonreactive Nonreactive [facility] Comment:HIV-1 p24 Ag and/or HIV-1/HIV-2 Ab not detected.A test result that is nonreactive does not exclude thepossibility of exposure to or infection with HIV-1 and/orHIV-2. Nonreactive results in this assay for individualswith prior exposure to HIV-1 and/or HIV-2 may be due toantigen and antibody levels that are below the limit ofdetection of this assay.The Zapleen[employer] HIV Ag/Ab Combo assay result andsupplemental assay results should be interpreted inconjunction with the patient's clinical presentation,history and other laboratory results. If the results areinconsistent with clinical evidence, additional testing issuggested to confirm the result. Blood Venous blood specimen / Unknown 07/01/2024 11:29 AM EDT 07/01/2024 1:07 PM EDT us Eva Barajas DO LAB BLOOD ORDERABLES Final R esult Performing Organization Address [facility]/ZIP Co de Phone Number [facility] [address] [place] [address] [phone] * HPV E6/E7 RFLX KEKE 16 18/45 (05/17/2022 11:56 AM EDT) Pathologist [facility] HPV mRNA E6/E7 rflx Not Detected Not Detected [facility] Comment: Methodology: Education And Training Coordinator-Mediated Amplification This assay detects E6/E7 viral messenger RNA (mRNA) from 14 high-risk HPV types (16,18,31,33,35,39,45,51,52,56,58,59,66,68). Cervical sources are required for HPV testing. If a vaginal source from a patient who has had a total hysterectomy with removal of cervix was submitted, please contact the testing laboratory for alternative testing options. For additional information, please refer to http://education.Art.com/faq/JMS872x4 (This link if provided for information/ educational purposes only.) THIS TEST WAS PERFORMED AT: [facility] [address],[place] [address] LORRAINE DAVIS MD 05/17/2022 11:5 6 AM EDT us Tamia Rosario HISTORICAL/NON ORDERABLE LABS Fi nal Result Performing Organization Address City/[facility]/ZIP Co de Phone Number [facility] [address] [place] [address], from Last 3 Months or Most Recently Relevant to Health Maintenance Insurance [facility] C3 Care Teams Cartridge Filler Relationship Specialty Start Date End Date Eva Barajas DO [address] [place] [phone] PCP - General Family Medicine 09/02/18
== END 2025-02-17 12:44 | disposition home or self-care (01) ==
LOC: HO.XRAY 12:43
PROVIDERS: PCP Internal Medicine; Visit Provider Internal Medicine
DX: M25.562 Pain in left knee (principal); M25.561 Pain in right knee; Z98.890 Other specified postprocedural states; Z87.828 Personal history of other (healed) physical injury and trauma
CPT/HCPCS: 73562

== ENCOUNTER → 2025-02-17 12:46 | Outpatient (BNV) | payer MEDICAID, SELFPAY | PROVIDERS: PCP Internal Medicine; Visit Provider Radiology Diagnostic Radiology | DX: M17.0 Bilateral primary osteoarthritis of knee (principal) | CPT/HCPCS: 73562 ==

== ENCOUNTER 2025-04-22 15:02 | Outpatient (AMB) | payer MEDICAID, SELFPAY ==
--- OUTSIDE RECORDS SUMMARY | 2025-04-22 15:04 | XMS_ITS | Encounter Summary ---
Author Organization [employer] Address [address] [place] [address] [address] [place] [address] Care Team Providers Care Access Nurse Name Role Phone Eva Barajas DO Primary Care Provider + [phone] Encounter Details Date Type Department Care Team ([facility] st Contact Info) Description 05/02/2023 Telephone [facility] [address] [place], [place] [phone] Eva Barajas DO [address], [place] [phone] Social History Tobacco Use Types Packs/Day Years Used Date Smoking Tobacco: Never Assessed Comments Unknown Sex and Gender Information Value Date Recorded Sex Assigned at Female 07/02/2022 10:17 AM EDT Legal Sex Female 10:17 AM EDT Gender Identity Female 07/02/2022 10:17 AM EDT Sexual Orientation Choose not to disclose 2022 11:33 AM EDT Sexual Orientation Straight 05/26/2023 11 :33 AM EDT documented as of this encounter Miscellaneous Notes * Telephone Encounter - Baojuan Rajendra Hallman - 05/02/2023 9:49 AM EDT Discard task. [employer] booked appt with Available slot. documented in this encounter Plan of Treatment Not on file documented as of this encounter Visit Diagnoses Not on filedocumented in this encounter Care Teams Access Nurse Relationship Specialty Start Date End Date Eva Barajas DO [address], [place] [phone] PCP - General Family Medicine 09/02/18 documented as of this encounter
--- OUTSIDE RECORDS SUMMARY | 2025-04-22 15:04 | XMS_ITS ---
Author Name [facility] Organization Unknown Encounters Encounter Type Encounter Reason Primary Diagnosis Location Date Ambulatory [facility] 03/01/2025
--- OUTSIDE RECORDS SUMMARY | 2025-04-22 15:04 | XMS_ITS | Clinical Summary ---
Author Organization [facility] Address [address] [place] [phone] Phone Care Team Providers Care Cut And Cover Line Worker Name Role Phone JosieEva laughlin Primary Care Provider [phone] Allergies Active Allergy Reactions Criticality Noted Date Comments Polyethylene Glycol 3350 07/07/2021 Medications acetaminophen (TYLENOL) 500 MG tablet Take 500 mg by mouth every 6 (six) hours as needed for pain (specific location in comments). Active ibuprofen (ADVIL,MOTRIN) 200 MG tablet Take 200 mg by mouth every 6 (six) hours as needed for pain (specific location in comments). Active Active Problems Problem Noted Date Diagnosed Date Uncoded HRHS 06/23/2008 Overview (10/23/2014): HRHS; nl chrs Immunizations Immunization Administration Dates Next Due Influenza Quadrivalent w/ Preservative IM 2019 Influenza, Unspecified Formulation 07/12/2021 Social History Tobacco Use Types Packs/Day Years Used Date Smoking Tobacco: Never Smokeless Tobacco: Never Alcohol Use Standard Drinks/Week Comments Not Currently 0 (1 standard drink = 0.6 oz pur e alcohol) Education Answer Date Recorded Are you interested in more education? Not on [place] e 12/27/2022 Are you concerned about learning? Not on file 12/27/2022 No 12/27/2022 No 12/27/2022 Digital Access Answer Date Recorded No 01/28/2023 No 01/28/2023 No 01/28/2023 Reliable internet access at home? Not on file 01/28/2023 Device with a working camera? Not on file Comments Unknown Sex and Gender Information Value Date Recorded Sex Assigned at Female 05/29/2021 10:00 AM EDT Legal Sex Female 8:00 PM EST Gender Identity Female 05/29/2021 10:00 AM EDT Sexual Orientation Straight 05/29/2021 10 :00 AM EDT Last Filed Vital Signs Vital Sign Reading Time Taken Comments Blood Pressure - - Pulse - - Temperature - - Respiratory Rate - - Oxygen Saturation - - Inhaled Oxygen Concentration - - Weight 104.3 kg (230 lb) 08/16/2021 9:00 AM EST Height 167.6 cm (5' 6 ) 08/16/2021 9:00 AM EST Body Mass Index 37.12 08/16/2021 9:00 AM EST Plan of Treatment Health Maintenance Due Date Last Done Comments DEPRESSION SCREENING 2000 HEPATITIS C SCREENING 2006 HIV ONE-TIME SCREENING (18-6 5 YEARS) 2006 PAP SMEAR 2009 Adult Td,Tdap Booster 11/04/2021 11/05/2011 COVID-19 VACCINE ( - 2023-2 5 season) 2024 MENINGOCOCCAL VACCINES (ACWY) Completed 03/28/2007 SMOKING STATUS SCREENING (On ce After 26 Yrs) Completed 08/16/2021 HEPATITIS A VACCINES Aged Out No long er eligible based on patient's age to complete this topic HIB VACCINES Aged Out No longer eligi ble based on patient's age to complete this topic MENINGOCOCCAL VACCINES (B) Aged Out N o longer eligible based on patient's age to complete this topic PNEUMOCOCCAL VACCINES (0-49 years) Aged Out No longer eligible based on patient's age to complete this topic Medical Devices Not on file Insurance [facility] C3 ACO C3 ACO C3 ACO C3 ACO C3 ACO C3 ACO C[address] [place] [address] [place] [address] C3 ACO [facility] C3 ACO [facility] Care Teams Cut And Cover Line Worker Relationship Specialty Start Date End Date Flor Barajasfer, [address] [place] [phone] PCP - General Family Medicine 05/29/21 Additional Source Comments The information contained in this document represents components of the legal health record. It is not the complete legal health record.[facility]
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
[2025-04-22 15:19] VITALS: BMI 39.6
== END 2025-04-22 15:44 | disposition home or self-care (01) ==
LOC: HO.HOS 15:02
PROVIDERS: PCP Internal Medicine; Visit Provider Physician Assistant
DX: M22.42 Chondromalacia patellae, left knee (principal)
CPT/HCPCS: 99203

== ENCOUNTER → 2025-04-22 15:02 | Outpatient (BNVA) | payer MEDICAID, SELFPAY | PROVIDERS: PCP Internal Medicine; Visit Provider Physician Assistant | DX: M25.562 Pain in left knee (principal); M25.561 Pain in right knee; M17.12 Unilateral primary osteoarthritis, left knee; M22.42 Chondromalacia patellae, left knee | CPT/HCPCS: 99212 ==

== ENCOUNTER 2025-05-05 16:14 | Outpatient (REF) | payer MEDICAID, SELFPAY ==
--- NOTE | ~2025-05-05 | MR_ITS ---
EXAM: MRI LOWER EXTREMITY JOINT, KNEE, left TECHNIQUE: Multiplanar multisequence MR imaging performed through the left knee without contrast. INDICATION: M17.12 - Unilateral primary osteoarthritis, left knee PRIOR: X-ray on February 17, 2025 FINDINGS: Menisci: Lateral Meniscus: Intact Medial Meniscus: There is a horizontal tear involving the posterior half of the body and posterior horn that extends from the peripheral free margin to the tibial surface near the inner free margin. Tear extends to the meniscocapsular junction in the mid body. There is moderate extrusion of the body of the meniscus. ACL/PCL: ACL and PCL are intact. Extensor mechanism: There is a physiologic volume of joint fluid. There is no abnormal signal in the fat pads or tendons appear MCL/LCL: MCL is intact. LCL complex is intact. Articular cartilage: Patellofemoral Compartment: Articular cartilage is intact. Lateral Compartment: Articular cartilage is intact. Medial Compartment: There is mild thinning of articular cartilage through the central weightbearing region. Bones/Marrow: Mild reactive marrow signal changes present along the central and posterior medial tibial plateau adjacent to the joint line. Soft tissues: There is no mass, fluid collection, muscle edema, or fatty infiltration. MR/MR knee LT wo con IMPRESSION: There is a horizontal tear involving the posterior half of the body and posterior horn of the medial meniscus with moderate meniscal extrusion. There is likely involvement of the meniscocapsular junction in the mid medial meniscal body. There is also reactive marrow signal change along the medial tibial plateau consistent with meniscal dysfunction. Electronically signed by: Yrn Kasper MD 05/05/2025 05:15 PM EDT
--- OUTSIDE RECORDS SUMMARY | 2025-05-05 17:55 | XMS_ITS | Encounter Summary ---
Author Organization [employer] Address [address] [place] [address] [address] [place] [address] Care Team Providers Care Numerical Control Nesting Operator Name Role Phone Eav Barajas DO Primary Care Provider + [phone] Reason for Visit * Reason Onset Date Comments Lab Orders 05/04/2025 Encounter Details Date Type Department Care Team (Late st Contact Info) Description 05/04/2025 Telephone [facility] [address], [place] [phone] Eva Barajas DO [address] [place], [place] [phone] Lab Orders Social History Tobacco Use Types Packs/Day Years Used Date Smoking Tobacco: Never Smokeless Tobacco: Never Alcohol Use Standard Drinks/Week Comments Never 0 (1 standard drink = 0.6 oz pur e alcohol) Depression Answer Date Recorded Patient Health Questionnaire-9 Score 0 03/15/2025 Patient Health Questionnaire-9 Score 0 03/15/2025 Last PHQ-9: Questionnaire Data Not on file 0 03/15/2025 Housing Stability Answer Date Recorded What is your housing situation today? I have jewel hernandez 06/17/[address] you [...] Date Recorded Patient Health Questionnaire-2 Score 0 03/15/2025 Internet Access Answer Date Recorded Internet Access [...] encounter Miscellaneous Notes * Telephone Encounter - Angela Ravi RN - 05/04/2025 11:46 AM EDT TC returned to pt. Last tb test done 11 months ago, negative. Pt. Reports needing a more recent test for school. Order placed, pt. Will come to lab prior to 3:30pm M-F and is aware results take 3-5 days * Telephone Encounter - Alan Hong - 05/04/2025 11:17 AM EDT TC from pt needing a tb test done for work . documented in this encounter Plan of Treatment Scheduled Orders Name Type Priority Associated Diagnoses Orde r Schedule T-SPOT .TB Lab Routine Screening examination for pulmonary tuberculosis Expected: 05/04/2025 (Approximate), Expires: 05/04/2026 documented as of this encounter Visit Diagnoses Diagnosis Screening examination for pulmonary tuberculosis documented in this encounter Additional Health Concerns Assessment Noted Time PHQ-9 Depression Total Score: 0 03/15/20 25 10:47 AM EDT documented as of this encounter Care Teams Numerical Control Nesting Operator Relationship Specialty Start Date End Date Eva Barajas DO [address] [place] [phone] PCP - General Family Medicine 09/02/18 documented as of this encounter
--- OUTSIDE RECORDS SUMMARY | 2025-05-05 17:55 | XMS_ITS | Clinical Summary ---
Author Organization [employer] Address [address] [place] [address] 7 [place] [address] Care Team Providers Care Diesel Mechanic Name Role Phone Eva Barajas DO Primary Care Provider + [phone] Allergies Active Allergy Reactions Criticality Noted Date Comments Polyethylene Glycol Dizziness,Hives,Shor tness of breath High 05/27/2023 Polyethylene Glycol 3350 Dizziness 05/01/2021 Other reaction(s): Hives, Nausea / Vomiting Medications baclofen (Lioresal) 10 MG tablet Take 1 tablet (10 mg) by mouth if needed in the morning, at noon, and at bedtime for muscle spasms. 60 tablet 1 03/15/20 25 025 Active acetaminophen (Tylenol 8 Hour) 650 MG ER tablet Take 1 tablet (650 mg) by mouth every 8 (eight) hours if needed for mild pain. Do not crush, chew, or split. 60 tablet 1 03/15/20 25 026 Active Diclofenac Sodium 1 % gel Apply 2 g topically if needed in the morning, at noon, in the evening, and at bedtime (pain). 150 g 3 03/15/20 25 Active phentermine 15 MG capsuleIndicat ions:Morbid obesity with BMI of 40.0-44.9, adult (CMS/HCC) Take 1 capsule (15 mg) by mouth before breakfast. 30 capsule 04/14/20 25 025 Active naproxen (Naprosyn) 500 MG tablet TAKE 1 TABLET (500 MG) BY MOUTH IN THE MORNING AND AT BEDTIME NEEDED FOR MILD PAIN 40 tablet 1 05/04/20 25 Active naproxen (Naprosyn) 500 MG tablet Take 1 tablet (500 mg) by mouth if needed in the morning and at bedtime for mild pain. 40 tablet 1 03/15/20 25 025 Discontinued phentermine 15 MG capsuleIndicat ions:Morbid obesity with BMI of 40.0-44.9, adult ([facility]) Take 1 capsule (15 mg) by mouth before breakfast. 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 06/01/2024 Overview (05/27/2023): HRHS; nl chrs Encounters Date Type Department Care Team Description 05/05/2025 Orders Only [facility] External Provider, [facility] 05/04/2025 Telephone [facility] [address] [place] [phone] Eva Barajas DO Lab Orders 05/02/2025 Refill [facility] [place] [address] Eva Barajas DO 04/13/2025 Refill [facility] [place] [address] Eva Barajas DO Morbid obesity with BMI of 40.0-44.9, adult ([facility]) 03/15/2025 10:30 AM EDT Office Visit [facility] [place] [address] Eva Barajas DO Morbid obesity with BMI of 40.0-44.9, adult ([facility]) (Primary Dx) 03/15/2025 Travel 03/10/[address] [address] Eva Barajas DO Chart Prep 02/23/2025 [address] [place] [address] Eva Barajas DO Durable Medical Equipment 02/17/2025 11:30 AM EDT Office Visit [facility] [place] [address] Cami King MD Sprain of right knee, unspecified ligament, initial encounter (Primary Dx); Sprain of left knee, unspecified ligament, initial encounter 02/17/2025 Travel 02/16/2025 Telephone [facility] [place] [address] vEa Barajas DO Chart prep 02/15/[address] [address] Eva Barajas DO Referral from Last 3 [...] Sign Reading Time Taken Comments Blood Pressure 110/80 03/15/2025 10:41 AM EDT Pulse 60 03/15/2025 10:41 AM EDT Temperature 36.2 C (97.1 F) 03/15/2025 10:41 AM EDT Respiratory Rate 20 03/15/2025 10:41 AM EDT Oxygen Saturation 99% 06/01/2024 9:20 AM EDT Inhaled Oxygen Concentration - - Weight 117 kg (257 lb 12.8 oz) 03/15/2025 10:41 AM EDT Height 167.6 cm (5' 6 ) 03/15/2025 10:41 AM EDT Body Mass Index 41.61 03/15/2025 10:41 AM EDT Plan of Treatment Health Maintenance Due Date Last Done Comments Family Planning (PISQ) 2003 HPV Vaccines (3 - 3-dose series) 12/09/2007 09/16/2007, 03/28/2007 Pap Smear 2009 COVID-19 Vaccine ( season) 2025 Influenza Vaccine (#1) 2025 , 05/27/2023, 07/12/2021, Additional history exists Alcohol/Substance Use Screening 03/15/2026 03/15/2025 Depression Screening 03/15/2026 03/15/2025, 03/15/20 Disability Screening 03/15/2026 03/15/2025 SDOH Screening 03/15/2026 03/15/2025 Tobacco Screening 03/15/2026 03/15/2025 Cervical Cancer Screening 05/17/2027 HPV/Cotest 05/17/2027 05/17/2022, 05/17/2022 Lipid Panel 07/01/2029 07/01/2024, 05/27/2023 DTaP/Tdap/Td Vaccines (7 - Td or Tdap) 07/11/2029 07/11/2019, 11/05/2011, 05/05/1992, Additional history exists Zoster Vaccines (1 of 2) 2038 RSV Patients and Patients Aged 60 years or older (1 - 1-dose 75+ series) 2063 IPV Vaccines Completed 07/09/1991, 10/31, 04/02/1990, Additional history exists Meningococcal Vaccine Completed 03/28/2007 Hepatitis B Vaccines Completed 06/04/2012, 01/30/2012, 11/15/2011, Additional history exists HIV Screening Completed 07/01/2024 [...] Procedure Name Priority Date/Time Associated Diagnosis Comments MR KNEE WO CONTRAST LEFT Routine 05/05/2025 3:27 PM EDT XR KNEE 3 VIEWS RIGHT Routine 02/17/2025 [...] reflux disease BMI 39.0-39.9,adult Encounter for immunization LIPID PANEL, STANDARD Routine 07/01/2024 11:29 AM EDT Routine history and physical examination of adult Chronic gastroesophageal reflux disease BMI 39.0-39.9,adult Encounter for immunization ZZZ HISTORICAL HPV E6/E7 RFLX KEKE 16 18/45 Routine 05/17/2022 11:56 AM EDT from Last 3 Months or Most Recently Relevant to Health Maintenance Results * MR Knee w/o Contrast Left (05/05/2025 3:27 PM EDT) Anatomical Region Laterality Modality Magnetic Resonan ce 05/05/2025 3:27 PM EDT Narrative 05/05/2025 5:18 PM EDT [place] [address] Magnetic Resonance Report Signed Patient: Violeta Dong MR#: [id number] [birth year] : 1990 Acct:[id number] Age/Sex: 34 / F ADM Date: 05/05/25 Loc: HO.MRI Attending Dr: Renae Stone PA-C Ordering Physician: Renae Stone PA-C Date of Service: 05/05/25 Procedure(s): MR knee LT wo con Accession Number(s): [id number] cc: Eva Barajas Ta-Mara PA-C Reason for Exam: M17.12 - Unilateral primary osteoarthritis, left knee EXAM: MRI LOWER EXTREMITY JOINT, KNEE, left TECHNIQUE: Multiplanar multisequence MR imaging performed through the left knee without contrast. INDICATION: M17.12 - Unilateral primary osteoarthritis, left knee PRIOR: X-ray on February 17, 2025 FINDINGS: Menisci: Lateral Meniscus: Intact Medial Meniscus: There is a horizontal tear involving the posterior half of the body and posterior horn that extends from the peripheral free margin to the tibial surface near the inner free margin. Tear extends to the meniscocapsular junction in the mid body. There is moderate extrusion of the body of the meniscus. ACL/PCL: ACL and PCL are intact. Extensor mechanism: There is a physiologic volume of joint fluid. There is no abnormal signal in the fat pads or tendons appear MCL/LCL: MCL is intact. LCL complex is intact. Articular cartilage: Patellofemoral Compartment: Articular cartilage is intact. Lateral Compartment: Articular cartilage is intact. Medial Compartment: There is mild thinning of articular cartilage through the central weightbearing region. Bones/Marrow: Mild reactive marrow signal changes present along the central and posterior medial tibial plateau adjacent to the joint line. Soft tissues: There is no mass, fluid collection, muscle edema, or fatty infiltration. MR/MR knee LT wo con IMPRESSION: There is a horizontal tear involving the posterior half of the body and posterior horn of the medial meniscus with moderate meniscal extrusion. There is likely involvement of the meniscocapsular junction in the mid medial meniscal body. There is also reactive marrow signal change along the medial tibial plateau consistent with meniscal dysfunction. Electronically signed by: Yrn Kasper MD 05/05/2025 05:15 PM EDT Dictated By: Yrn Kasper MD Signed By: <Electronically signed by Yrn Kasper MD in OV> 05/05/25 1715 DD/ 1527 TD/TT: 05/05/25 1642 Throat Cutter: Procedure Note Donotuseinterpreter, Image - 05/05/[address] [address] Magnetic Resonance Report Signed Patient: Violeta Dong MMR#: [id number] [birth year] : 1990Acct:[id number] Age/Sex: 34 / FADM Date: 05/05/25 Loc: HO.MRI Attending Dr: Renae Stone PA-C Ordering Physician: Renae Stone PA-C Date of Service: 05/05/25 Procedure(s): MR knee LT wo con Accession Number(s): [id number] cc: Eva Barajas DO; Renae Stone PA-C Reason for Exam: M17.12 - Unilateral primary osteoarthritis, left knee EXAM: MRI LOWER EXTREMITY JOINT, KNEE, left TECHNIQUE: Multiplanar multisequence MR imaging performed through the left knee without contrast. INDICATION: M17.12 - Unilateral primary osteoarthritis, left knee PRIOR: X-ray on February 17, 2025 FINDINGS: Menisci: Lateral Meniscus: Intact Medial Meniscus: There is a horizontal tear involving the posterior half of the body and posterior horn that extends from the peripheral free margin to the tibial surface near the inner free margin. Tear extends to the meniscocapsular junction in the mid body. There is moderate extrusion of the body of the meniscus. ACL/PCL: ACL and PCL are intact. Extensor mechanism: There is a physiologic volume of joint fluid. There is no abnormal signal in the fat pads or tendons appear MCL/LCL: MCL is intact. LCL complex is intact. Articular cartilage: Patellofemoral Compartment: Articular cartilage is intact. Lateral Compartment: Articular cartilage is intact. Medial Compartment: There is mild thinning of articular cartilage through the central weightbearing region. Bones/Marrow: Mild reactive marrow signal changes present along the central and posterior medial tibial plateau adjacent to the joint line. Soft tissues: There is no mass, fluid collection, muscle edema, or fatty infiltration. MR/MR knee LT wo con IMPRESSION: There is a horizontal tear involving the posterior half of the body and posterior horn of the medial meniscus with moderate meniscal extrusion. There is likely involvement of the meniscocapsular junction in the mid medial meniscal body. There is also reactive marrow signal change along the medial tibial plateau consistent with meniscal dysfunction. Electronically signed by: Yrn Kasper MD 05/05/2025 05:15 PM EDT RP Dictated By: Yrn Kasper MD Signed By: <Electronically signed by Yrn Kasper MD in OV> 05/05/25 1715 DD/ 1527 TD/TT: 05/05/25 1642 Throat Cutter: [facility] External Provider IMG MRI PROCEDURES Final Result * XR Knee 3 Views Right (02/17/2025 12:50 PM EDT) Anatomical Region Laterality Modality Lower Extremities, Knee Right Radiogra phic Imaging 02/17/2025 12:5 0 PM EDT Narrative 02/17/2025 1:59 PM EDT [place] [address] XRay Report Signed Patient: Violeta Dong MR#: [id number] [birth year] : 1990 Acct:[id number] Age/Sex: 34 / F ADM Date: 02/17/25 Loc: CRISTINA Attending Dr: Cami King MD Ordering Physician: Cami King MD Date of Service: 02/17/25 Procedure(s): XR knee RT 3V Accession Number(s): [id number] cc: Cami King MD EXAMINATION: XR KNEE, [...] River Miller MD 02/17/2025 01:56 PM EDT RP Dictated By: River Miller MD Signed By: <Electronically signed by River Miller MD in OV> 02/17/25 1356 DD/ 125 TD/TT: 02/17/25 1310 Throat Cutter: Procedure Note Donotuseinterpreter, Image - 02/17/2025 [place] [address] XRay Report Signed Patient: Violeta Dong MMR#: [id number] [birth year] : 1990Acct:[id number] Age/Sex: 34 / FADM Date: 02/17/25 Loc: HO.DIEGO Attending Dr: Cami King MD Ordering Physician: Cami King MD Date of Service: 02/17/25 Procedure(s): XR knee RT 3V Accession Number(s): [id number] cc: Cami King MD EXAMINATION: XR KNEE, [...] River Miller MD 02/17/2025 01:56 PM EDT RP Dictated By: River Miller MD Signed By: <Electronically signed by River Miller MD in OV> 02/17/25 135 DD/ 1250 TD/TT: 02/17/25 1310 Throat Cutter: Cami King MD IMG XR PROCEDURES Final Result * XR Knee 3 Views Left (02/17/2025 12:50 PM EDT) Anatomical Region Laterality Modality Lower Extremities, Knee Left Radiogra phic Imaging 02/17/2025 12:5 0 PM EDT Narrative 02/17/2025 2:01 PM EDT [address] [address] XRay Report Signed Patient: Violeta Dong MR#: [id number] 81 : 1990 Acct:[id number] Age/Sex: 34 / F ADM Date: 02/17/25 Loc: HO.XRAY Attending Dr: Cami King MD Ordering Physician: Cami King MD Date of Service: 02/17/25 Procedure(s): XR knee LT 3V Accession Number(s): [id number] cc: Cami King MD EXAMINATION: XR KNEE, [...] 02/17/25 1358 DD/ 1250 TD/TT: 02/17/25 1310 Throat Cutter: Procedure Note Donotuseinterpreter, Image - 02/17/[address] [address] XRay Report Signed Patient: Violeta Dong MMR#: [id number] [birth year] : 1990Acct:[id number] Age/Sex: 34 / FADM Date: 02/17/25 Loc: HO.EFRAÍNAY Attending Dr: Cami King MD Ordering Physician: Cami King MD Date of Service: 02/17/25 Procedure(s): XR knee LT 3V Accession Number(s): [id number] cc: Cami King MD EXAMINATION: XR KNEE, [...] 02/17/25 1358 DD/ 1250 TD/TT: 02/17/25 1310 Throat Cutter: us Cami King MD IMG XR PROCEDURES Final Result * Hepatitis C Antibody with Reflex to HCV, RNA, Quantitative, Real-Time PCR (07/01/2024 11:29 AM EDT) Hepatitis C Antibody Nonreactive Nonreactive [facility] Comment:Antibodies to HCV no t detected; does not exclude early acuteHCV infection. Blood Venous blood specimen / Unknown 07/01/2024 11:29 AM EDT 07/01/2024 1:07 PM EDT us Eva Barajas DO LAB BLOOD ORDERABLES Final R esult [facility] [address] [place] [phone] * HIV-1/2 Antigen and Antibodies, Fourth Generation, with Reflexes (07/01/2024 11:29 AM EDT) Pathologist [facility] HIV AB/AG Nonreactive Nonreactive [facility] Comment:HIV-1 p24 Ag and/or HIV-1/HIV-2 Ab not detected.A test result that is nonreactive does not exclude thepossibility of exposure to or infection with HIV-1 and/orHIV-2. Nonreactive results in this assay for individualswith prior exposure to HIV-1 and/or HIV-2 may be due toantigen and antibody levels that are below the limit ofdetection of this assay.The [employer] HIV Ag/Ab Combo assay result andsupplemental assay results should be interpreted inconjunction with the patient's clinical presentation,history and other laboratory results. If the results areinconsistent with clinical evidence, additional testing issuggested to confirm the result. Blood Venous blood specimen / Unknown 07/01/2024 11:29 AM EDT 07/01/2024 1:07 PM EDT us Eva Barajas DO LAB BLOOD ORDERABLES Final R esult [facility] [address] [place] [phone] [phone] * (ABNORMAL) Lipid Panel, Standard (07/01/2024 11:29 AM EDT) Triglycerides 122 <150 mg/dL [facility] Comment:Desirable Triglyceri de: less than 150 mg/dLBorderline High Triglyceride 150-199 mg/dLHigh Triglyceride: 200-499 mg/dLVery High Triglyceride: greater than or equal to 5OO mg/dL Cholesterol 172 <200 mg/dL [facility] Comment:Desirable Cholestero l: less than 200 mg/dLBorderline High Cholesterol: 200-239 mg/dLHigh Cholesterol: greater than 239 mg/dL LDL Cholesterol Calculated 103(H) <100 mg/dL [facility] Comment:Desirable LDL: less than 100 mg/dLNear Optimal/Above Optimal LDL: 110- 129 mg/dLBorderline High LDL: 130-159 mg/dLHigh LDL: 160-189 mg/dLVery High LDL: greater than or equal to 190 mg/dL HDL Cholesterol 45 >40 mg/dL [facility] Comment:Desirable HDL: great er than 40 mg/dL Note: This HDL assay may give artificially low results in patients with liver disease. Blood Venous blood specimen / Unknown 07/01/2024 11:29 AM EDT 07/01/2024 1:07 PM EDT us Eva Barajas DO LAB BLOOD ORDERABLES Final R esult Performing Organization Address [facility]/ZIP Co de Phone Number [facility] [address] [place] [phone] [phone] * HPV E6/E7 RFLX KEKE 16 18/45 (05/17/2022 11:56 AM EDT) Pathologist [facility] HPV mRNA E6/E7 rflx Not Detected Not Detected [facility] Comment: Methodology: [place]ailiff-Mediated Amplification This assay detects E6/E7 viral messenger RNA (mRNA) from 14 high-risk HPV types (16,18,31,33,35,39,45,51,52,56,58,59,66,68). Cervical sources are required for HPV testing. If a vaginal source from a patient who has had a total hysterectomy with removal of cervix was submitted, please contact the testing laboratory for alternative testing options. For additional information, please refer to http://education.Med.ly/faq/UVQ454g1 (This link if provided for information/ educational purposes only.) THIS TEST WAS PERFORMED AT: [facility] [address] [place] [address] [address]LO[address],[place] [address] LORRAINE DAVIS MD 05/17/2022 11:5 6 AM EDT us Tamia Rosario HISTORICAL/NON ORDERABLE LABS Fi nal Result Performing Organization Address City/[facility]/ZIP Co de Phone Number [facility] [place] [address], [place] from Last 3 Months or Most Recently Relevant to Health Maintenance Insurance [facility] C3 Care Teams Diesel Mechanic Relationship Specialty Start Date End Date Eva Barajas DO [address] [place] [phone] PCP - General Family Medicine 09/02/18
--- OUTSIDE RECORDS SUMMARY | 2025-05-05 17:55 | XMS_ITS | Clinical Summary ---
Author Organization [facility] Address [address] [place] [phone] Phone Care Team Providers Care Vocational Ed Instructor Name Role Phone JosieEva laughlin Primary Care Provider Allergies Active Allergy Reactions Criticality Noted Date [...] HEPATITIS C SCREENING 2006 HIV ONE-TIME SCREENING (18-65 YEARS) 2006 PAP SMEAR 2009 Adult Td,Tdap Booster 11/04/2021 11/05/2011 COVID-19 VACCINE ( season) 2024 INFLUENZA VACCINE (#1) 2025 3, 07/12/2021, 07/07/2020, Additional history exists MENINGOCOCCAL VACCINES (ACWY) Completed 03/28/2007 SMOKING STATUS SCREENING (Once After 26 Yrs) Completed 08/16/2021 HEPATITIS A [...] topic Medical Devices Not on file Insurance [facility] C3 ACO C3 ACO C3 ACO C3 ACO C3 ACO C3 ACO C3 ACO C3 ACO C3 ACO [facility]LY [facility] Care Teams Vocational Ed Instructor Relationship Specialty Start Date End Date Eva Barajas DO [address] [place] [phone] PCP - General Family Medicine 05/29/21 Additional Source Comments The information contained in this document represents components of the legal health record. It is not the complete legal health record.[facility]
--- OUTSIDE RECORDS SUMMARY | 2025-05-05 17:55 | XMS_ITS | Encounter Summary ---
Author Organization [employer] Address [address] [place] [address] 7 [place] [address] Care Team Providers Care Nuts And Bolts Assembler Name Role Phone Eva Barajas DO Primary Care Provider + [phone] Encounter Details Date Type Department Care Team ([facility] st Contact Info) Description 05/02/2023 Telephone [facility] PEDS [address] [place], [place] [phone] Eva Barajas DO [address] [place], [place] [phone] Social History Tobacco Use Types Packs/Day Years [...] - 05/02/2023 9:49 AM EDT Discard task. Control Room Helper booked appt with Available slot. documented in this encounter Plan of Treatment Not on file documented as of this encounter Visit Diagnoses Not on filedocumented in this encounter Care Teams Nuts And Bolts Assembler Relationship Specialty Start Date End Date Eva Barajas DO [address] [place], [place] [phone] PCP - General Family Medicine 09/02/18 documented as of this encounter
--- OUTSIDE RECORDS SUMMARY | 2025-05-05 17:55 | XMS_ITS | Encounter Summary ---
Author Organization [employer] Address [address] [place] [address] 7 [place] [address] Care Team Providers Care Yard Brakeman Name Role Phone Eva Barajas DO Primary Care Provider + [phone] Reason for Visit * Reason Comments Med Refill Encounter Details Date Type Department Care Team ([facility] st Contact Info) Description 05/02/2025 Refill [facility] MEDICINE [address] [place], [place] [phone] Eva Barajas DO [address] [place], [place] [phone] Social History Tobacco Use Types Packs/Day Years [...] AM EDT documented as of this encounter Plan of Treatment Not on file documented as of this encounter Visit Diagnoses Not on filedocumented in this encounter Additional Health Concerns Assessment Noted Time PHQ-9 Depression Total Score: 0 03/15/20 25 10:47 AM EDT documented as of this encounter Care Teams Yard Brakeman Relationship Specialty Start Date End Date Eva Barajas DO [address] [place] [address] PCP - General Family Medicine 09/02/18 documented as of this encounter
--- OUTSIDE RECORDS SUMMARY | 2025-05-05 17:55 | XMS_ITS | Encounter Summary ---
Author Organization [employer] Address [address] [place] [address] 7 [place] [address] Care Team Providers Care Cement Based Materials Pump Tender Name Role Phone Eva Barajas DO Primary Care Provider + [phone] Encounter Details Date Type Department Care Team (Late st Contact Info) Description 05/05/2025 Orders Only [facility] External Provider, [facility] Social History Tobacco Use Types Packs/Day Years [...] on file documented as of this encounter Procedures Procedure Name Priority Date/Time Associated Diagnosis Comments MR KNEE WO CONTRAST LEFT Routine 05/05/2025 3:27 PM EDT documented in this encounter Results * MR Knee w/o Contrast Left (05/05/2025 3:27 PM EDT) Anatomical Region Laterality Modality Magnetic Resonan ce 05/05/2025 3:27 PM EDT Narrative 05/05/2025 5:18 PM EDT [place] [address] Magnetic Resonance Report Signed Patient: Violeta Dong MR#: [id number] 81 : 1990 Acct:[id number] Age/Sex: 34 / F ADM Date: 05/05/25 Loc: HO.MRI Attending Dr: Renae Stone PA-C Ordering Physician: Renae Stone PA-C Date of Service: 05/05/25 Procedure(s): MR knee LT wo con Accession Number(s): [id number] cc: Eva Barajas Ta-Mara PA-C Reason for [...] 05/05/25 1715 DD/ 1527 TD/TT: 05/05/25 1642 Mastic Worker: Procedure Note Donotuseinterpreter, Image - 05/05/[address] [address] Magnetic Resonance Report Signed Patient: Violeta Dong [facility]#: [id number] [birth year] : 1990Acct:[id number] Age/Sex: 34 / FADM Date: 05/05/25 Loc: HO.MRI Attending Dr: Renae Stone PA-C Ordering Physician: Renae Stone PA-C Date of Service: 05/05/25 Procedure(s): MR knee LT wo con Accession Number(s): [id number] cc: Eva Barajas DO; Renae Stone PA-C [...] 05/05/25 1715 DD/ 1527 TD/TT: 05/05/25 1642 Mastic Worker: [facility] External Provider IMG MRI PROCEDURES Final Result documented in this encounter Visit Diagnoses Not on filedocumented in this encounter Additional Health Concerns Assessment Noted Time PHQ-9 Depression Total Score: 0 03/15/20 25 10:47 AM EDT documented as of this encounter Care Teams Cement Based Materials Pump Tender Relationship Specialty Start Date End Date Eva Barajas DO [address] [place] [address] PCP - General Family Medicine 09/02/18 documented as of this encounter
== END 2025-05-05 16:15 | disposition home or self-care (01) ==
LOC: HO.MRI 16:14
PROVIDERS: PCP Family Medicine; Visit Provider Physician Assistant
DX: M17.12 Unilateral primary osteoarthritis, left knee (principal)
CPT/HCPCS: 73721

== ENCOUNTER → 2025-05-05 16:14 | Outpatient (BNV) | payer MEDICAID, SELFPAY | PROVIDERS: PCP Family Medicine; Visit Provider Radiology Diagnostic Radiology | DX: M17.12 Unilateral primary osteoarthritis, left knee (principal) | CPT/HCPCS: 73721 ==

== ENCOUNTER 2025-05-20 09:27 | Outpatient (REF) | payer MEDICAID, SELFPAY ==
--- OUTSIDE RECORDS SUMMARY | 2025-05-20 12:12 | XMS_ITS | Clinical Summary ---
Author Organization [facility] Address [address] [place] [address] Phone Care Team Providers Care General Maintenance Technician Name Role Phone JosieEva laughlin Primary Care [...] topic Medical Devices Not on file Insurance [facility] C3 ACO C3 ACO C3 ACO C3 ACO C3 ACO C3 ACO C3 ACO C3 ACO C3 ACO [facility] Care Teams General Maintenance Technician Relationship Specialty Start Date End Date Eva Barajas DO [address] [place] [address] PCP - General Family Medicine 05/29/21 Additional Source Comments The information contained in this document represents components of the legal health record. It is not the complete legal health record.[facility]
[2025-05-20 22:04] LABS: Bacterial Vaginosis PCR NEGATIVE (Negative); Candida Group PCR NOT DETECTED (Not Detect); Candida glab krusei PCR NOT DETECTED (Not Detect); Trichomonas vaginalis PCR NOT DETECTED (Not Detect)
[2025-05-20 23:46] LABS: CT PCR NOT DETECTED (Not Detect.); NG PCR NOT DETECTED (Not Detect.)
== END 2025-05-20 09:28 | disposition home or self-care (01) ==
LOC: HO.LNP 09:27
PROVIDERS: PCP Internal Medicine; Visit Provider Advanced Practice Midwife
DX: Z01.419 Encounter for gynecological examination (general) (routine) without abnormal findings (principal); N93.9 Abnormal uterine and vaginal bleeding, unspecified
CPT/HCPCS: 81515; 87491; 87591; 99212; 99395; 99459

== ENCOUNTER 2025-05-20 09:27 | Outpatient (AMB) | payer MEDICAID, SELFPAY ==
--- NOTE | 2025-05-20 09:28 | MHC.OFFVIS ---
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 Uses boric acid before and after intimacy to prevent post coital bleeding, she reports it work some of the time. EMB and pap 2023-negative. She denies vaginal itching or irritation. STI screening offered; she accepts. She tries to eat healthy and stays active with exercise-limited due to knee pain. Denies family history of breast, ovarian or colon cancer. Last pap smear 2023, negative. 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 Sexual orientation: Straight/Heterosexual Gender identity: Female Female Reproductive History Menstrual Duration of menses: 3-5 days Date of last menstrual period: 05/17/25 control method: none and condoms Total pregnancies: 6 Full term: 6 Number of Living Children: 5 Date of last pap smear: 12/03/23 (negative pap smear, negative hpv ) History of abnormal pap smear: No Review of Systems Const All systems reviewed & are unremarkable except as noted in HPI and below Reports as per HPI Eyes Reports no additional complaints ENT Reports no additional complaints Card Reports no additional complaints Resp Reports no additional complaints GI Reports as per HPI and Reports no additional complaints Reports as per HPI Musc Reports no additional complaints Skin/Breast Reports as per HPI Neuro Reports no additional complaints Psych Reports no additional complaints Endo Reports no additional complaints Rodríguez/Lymph Reports no additional complaints Aller/Immun Reports no additional complaints Physical Exam Vital Signs: Last Vital Signs BP 102/76 05/20/25 09:37 BMI result Body Mass Index 39.3 Const General: cooperative, healthy appearing, no acute distress, well developed and alert Orientation/consciousness: patient oriented x3 HEENT Head: Yes normal to inspection Eyes General: appearance normal, both eyes and all related structures Neck Neck: Yes normal visual inspection Thyroid: Thyroid normal Chest Chest palpation & inspection: normal inspection of the chest and other (no puckering, dimpling, peau de orange, retraction, discharge, masses) Breast/axilla inspection: normal inspection of the breasts Breast/axilla palpation: normal palpation of the breasts Resp Effort & Inspection: normal respiratory effort GI Inspection: Yes normal to inspection Palpation (GI): Soft to palpation Rectal Exam - Female: deferred General: Yes bladder normal to palpation External Female Exam: normal external appearance and normal appearance of the urethra Speculum Exam - Vagina: normal appearance of the vagina, normal palpation and vaginal bleeding Speculum Exam - Cervix: normal appearance of the cervix and normal palpation Bimanual exam- vagina & uterus: normal bimanual exam, normal palpation, uterine size normal, bladder normal to palpation, normal palpation and non-tender Bimanual Exam- Adnexa, other: no masses OB/external & speculum: vaginal bleeding Skin General skin exam: no rashes or lesions noted Rashes: no rashes Neuro General: patient oriented x3 Cognition (Neuro): normal cognition Extrem General: Yes normal to inspection Psych Attitude: cooperative Thought process: Normal thought process present Results AMB Test Urine AMB Test Urine Negative Last Edit by Ann Marie Olvera LPN on 05/20/25 10:30 Assessment & Plan Assessment & Plan (1) Abnormal uterine bleeding (AUB): Code(s): N93.9 - Abnormal uterine and vaginal bleeding, unspecified Category: Medical Plan: I recommend workup and consult appointment Dr. Vee for further evaluation. BV panel and GC chlamydia obtained. The patient expressed understanding and agreement with the plan of care. All of her questions and concerns were addressed to the best of my ability. Total time I personally spent on visit and management today: ?15 minutes. Time spent included review of pertinent office notes in the electronic health record; review of laboratory and imaging results; review of personal family medical history; performing physical exam; discussing diagnosis and plan of care with the patient; documenting the encounter in the EMR. (2) Encounter for well woman exam with routine gynecological exam: Code(s): Z01.419 - Encounter for gynecological examination (general) (routine) without abnormal findings Category: Medical Plan Discussed: Current recommendations for pap smears per ASCCP guidelines. Breast awareness and periodic breast exams. Maintain a healthy lifestyle including a well balanced diet and routine exercise. Patient verbalizes understanding and agrees to the plan of care. She was given opportunity to ask questions and all questions were answered to the best of my ability. RTO in one year for annual head turbine operator examination. This note is constructed using voice recognition software. While every effort has been made to ensure accuracy, community outreach coordinator errors may have been included. Orders: Orders CT NG by PCR Vag/Cerv Today N93.9 - Abnormal uterine and vaginal bleeding, unspecified Bacterial Vaginosis Panel Today N93.9 - Abnormal uterine and vaginal bleeding, unspecified Coding Level of Care Code Est Pt Level 2 (22831) Est Pt Prev Care 18-39y(18261) Diagnoses Abnormal uterine bleeding (AUB) N93.9 Encounter for well woman exam with routine gynecological exam Z01.419
[2025-05-20 09:37] VITALS: BP 102/76; BMI 39.3
--- OUTSIDE RECORDS SUMMARY | 2025-05-20 11:03 | XMS_ITS | Clinical Summary ---
Author Organization [employer] Address [address] [place] [address] 7 [place] [address] Care Team Providers Care Hydrotechnical Specialist Name Role Phone Eva Barajas DO Primary Care Provider + [phone] Allergies Active Allergy Reactions Criticality Noted Date Comments Polyethylene Glycol Dizziness,Hives,Shor tness of breath High 05/27/2023 Polyethylene Glycol 3350 Dizziness 05/01/2021 Other reaction(s): Hives, Nausea / Vomiting Medications baclofen (Lioresal) 10 MG tablet Take 1 tablet (10 mg) by mouth if needed in the morning, at noon, and at bedtime for muscle spasms. 60 tablet 1 03/15/20 25 Active acetaminophen (Tylenol 8 Hour) 650 MG [...] (pain). 150 g 3 03/15/20 25 Active naproxen (Naprosyn) 500 MG tablet TAKE 1 TABLET (500 MG) BY MOUTH IN THE MORNING AND AT BEDTIME NEEDED FOR MILD PAIN 40 tablet 1 05/04/20 25 Active phentermine 15 MG capsuleIndicat ions:Morbid obesity with BMI of 40.0-44.9, adult (CMS/HCC) Take 1 capsule (15 mg) by mouth before breakfast. 30 capsule 05/11/20 25 025 Active naproxen (Naprosyn) 500 MG tablet Take 1 tablet (500 mg) by mouth if needed in the morning and at bedtime for mild pain. 40 tablet 1 03/15/20 25 025 Discontinued phentermine 15 MG capsuleIndicat ions:Morbid obesity with BMI of 40.0-44.9, adult ([facility]) Take 1 capsule (15 mg) by mouth before breakfast. 30 capsule 04/14/20 25 025 Discontinued(Re order (will not trigger [...] Department Care Team Description 05/05/2025 Orders Only [facility] External Provider, [facility] 05/04/2025 Telephone [facility] [address] [place] [address] Eva Barajas DO Lab Orders 05/02/[address] [place] [address] Eva Barajas DO 04/13/[address] [place] [address] Eva Barajas DO Morbid obesity with BMI of 40.0-44.9, adult ([facility]) 03/15/2025 10:30 AM EDT Office Visit [address] [address] Eva Barajas DO Morbid obesity with BMI of 40.0-44.9, adult ([facility]) (Primary Dx) 03/15/2025 Travel 03/10/[address] [address] Eva Barajas DO Chart Prep 02/23/[address] [address] Eva Barajas DO Durable Medical Equipment 02/17/2025 11:30 AM EDT Office Visit [address] [address] Cami King MD Sprain of right knee, unspecified ligament, initial encounter (Primary Dx); Sprain of left knee, unspecified ligament, initial encounter 02/17/2025 Travel from Last 3 Months Immunizations Immunization Administration [...] PM EDT Narrative 05/05/2025 5:18 PM EDT [place] [address] Magnetic Resonance Report Signed Patient: Violeta Dong MR#: [id number] 81 : 1990 Acct:[id number] Age/Sex: 34 / F ADM Date: 05/05/25 Loc: HO.MRI Attending Dr: Renae Stone PA-C Ordering Physician: Renae Stone PA-C Date of Service: 05/05/25 Procedure(s): MR knee LT wo con Accession Number(s): [id number] cc: Eva Barajas DO; Renae Stone PA-C [...] 05/05/25 1715 DD/ 1527 TD/TT: 05/05/25 1642 Tree Puller: Procedure Note Donotuseinterpreter, Image - 05/05/[address] [address] Magnetic Resonance Report Signed Patient: Violeta Dong [facility]#: [id number] [birth year] : 1990Acct:[id number] Age/Sex: 34 / FADM Date: 05/05/25 Loc: HO.MRI Attending Dr: Renae Stone PA-C Ordering Physician: Renae Stone PA-C Date of Service: 05/05/25 Procedure(s): MR knee LT wo con Accession Number(s): [id number] cc: Eva Barajas DO; Renae Stone PA-C [...] 05/05/25 1715 DD/ 1527 TD/TT: 05/05/25 1642 Tree Puller: [facility] External Provider IMG MRI PROCEDURES Final Result * XR Knee 3 Views Right (02/17/2025 12:50 PM EDT) Anatomical Region Laterality Modality Lower Extremities, Knee Right Radiogra phic Imaging 02/17/2025 12:5 0 PM EDT Narrative 02/17/2025 1:59 PM EDT [address] [address] XRay Report Signed Patient: Violeta Dong MR#: [id number] 81 : 1990 Acct:[id number] Age/Sex: 34 / F ADM Date: 02/17/25 Loc: HO.XRAY Attending Dr: Cami King MD Ordering Physician: Cami King MD Date of Service: 02/17/25 Procedure(s): XR knee RT 3V Accession Number(s): [id number] cc: Cami King MD EXAMINATION: XR KNEE, [...] 02/17/25 1356 DD/ 1250 TD/TT: 02/17/25 1310 Tree Puller: Procedure Note Donotuseinterpreter, Image - 02/17/[address] [address] XRay Report Signed Patient: Violeta Dong MMR#: [id number] [birth year] : 1990Acct:[id number] Age/Sex: 34 / FADM Date: 02/17/25 Loc: HO.XRAY Attending Dr: Cami King MD Ordering Physician: Cami King MD Date of Service: 02/17/25 Procedure(s): XR knee RT 3V Accession Number(s): [id number] cc: Cami King MD EXAMINATION: XR KNEE, [...] 02/17/25 1356 DD/ 1250 TD/TT: 02/17/25 1310 Tree Puller: us Cami King MD IMG XR PROCEDURES Final Result * XR Knee 3 Views Left (02/17/2025 12:50 PM EDT) Anatomical Region Laterality Modality Lower Extremities, Knee Left Radiogra phic Imaging 02/17/2025 12:5 0 PM EDT Narrative 02/17/2025 2:01 PM EDT [address] [address] XRay Report Signed Patient: Viloeta Dong MR#: [id number] 81 : 1990 Acct:[id number] Age/Sex: 34 / F ADM Date: 02/17/25 Loc: CRISTINA Attending Dr: Cami King MD Ordering Physician: Cami King MD Date of Service: 02/17/25 Procedure(s): XR knee LT 3V Accession Number(s): [id number] cc: Cami King MD EXAMINATION: XR KNEE, [...] 02/17/25 1358 DD/ 1250 TD/TT: 02/17/25 1310 Tree Puller: Procedure Note Donotuseinterpreter, Image - 02/17/2025 [place] [address] XRay Report Signed Patient: Violeta Dong MMR#: [id number] [birth year] : 1990Acct:[id number] Age/Sex: 34 / FADM Date: 02/17/25 Loc: CRISTINA Attending Dr: Cami King MD Ordering Physician: Cami King MD Date of Service: 02/17/25 Procedure(s): XR knee LT 3V Accession Number(s): [id number] cc: Cami King MD EXAMINATION: XR KNEE, [...] 02/17/25 1358 DD/ 1250 TD/TT: 02/17/25 1310 Tree Puller: us Cami King MD IMG XR PROCEDURES Final Result * Hepatitis C Antibody with Reflex to HCV, RNA, Quantitative, Real-Time PCR (07/01/2024 11:29 AM EDT) Hepatitis C Antibody Nonreactive Nonreactive [facility] Comment:Antibodies to HCV no t detected; does not exclude early acuteHCV infection. Blood Venous blood specimen / Unknown 07/01/2024 11:29 AM EDT 07/01/2024 1:07 PM EDT us Eva Barajas DO LAB BLOOD ORDERABLES Final R esult [facility] [address] [place] [phone] * HIV-1/2 Antigen and Antibodies, Fourth Generation, with Reflexes (07/01/2024 11:29 AM EDT) HIV AB/AG Nonreactive Nonreactive [facility] Comment:HIV-1 p24 Ag and/or HIV-1/HIV-2 Ab not detected.A test result that is nonreactive does not exclude thepossibility of exposure to or infection with HIV-1 and/orHIV-2. Nonreactive results in this assay for individualswith prior exposure to HIV-1 and/or HIV-2 may be due toantigen and antibody levels that are below the limit ofdetection of this assay.The [employer] HIV Ag/Ab Combo assay result andsupplemental assay results should be interpreted inconjunction with the patient's clinical presentation,history and other laboratory results. If the results areinconsistent with clinical evidence, additional testing issuggested to confirm the result. Blood Venous blood specimen / Unknown 07/01/2024 11:29 AM EDT 07/01/2024 1:07 PM EDT us Eva Barajas DO LAB BLOOD ORDERABLES Final R esult [facility] [address] [place] [phone] * (ABNORMAL) Lipid Panel, Standard (07/01/2024 11:29 AM EDT) Triglycerides 122 <150 mg/dL [facility] Comment:Desirable Triglyceri de: less than 150 mg/dLBorderline High Triglyceride 150-199 mg/dLHigh Triglyceride: 200-499 mg/dLVery High Triglyceride: greater than or equal to 5OO mg/dL Cholesterol 172 <200 mg/dL [facility] Comment:Desirable Cholestero l: less than 200 mg/dLBorderline High Cholesterol: 200-239 mg/dLHigh Cholesterol: greater than 239 mg/dL LDL Cholesterol Calculated 103(H) <100 mg/dL [facility] Comment:Desirable LDL: less than 100 mg/dLNear Optimal/Above Optimal LDL: 110- 129 mg/dLBorderline High LDL: 130-159 mg/dLHigh LDL: 160-189 mg/dLVery High LDL: greater than or equal to 190 mg/dL HDL Cholesterol 45 >40 mg/dL [facility] Comment:Desirable HDL: great er than 40 mg/dL Note: This HDL assay may give artificially low results in patients with liver disease. Blood Venous blood specimen / Unknown 07/01/2024 11:29 AM EDT 07/01/2024 1:07 PM EDT us Eva Barajas DO LAB BLOOD ORDERABLES Final R esult Performing Organization Address City/[facility]/ZIP Co de Phone Number [facility] [address] [place] [phone] * HPV E6/E7 RFLX KEKE 16 18/45 (05/17/2022 11:56 AM EDT) HPV mRNA E6/E7 rflx Not Detected Not Detected [facility] Comment: Methodology: [employer]-Mediated Amplification This assay detects E6/E7 viral messenger RNA (mRNA) from 14 high-risk HPV types (16,18,31,33,35,39,45,51,52,56,58,59,66,68). Cervical sources are required for HPV testing. If a vaginal source from a patient who has had a total hysterectomy with removal of cervix was submitted, please contact the testing laboratory for alternative testing options. For additional information, please refer to http://education.[employer]/faq/UQM391b1 (This link if provided for information/ educational purposes only.) THIS TEST WAS PERFORMED AT: [facility] [address] [place] [address],[place] [phone] LORRAINE DAVIS MD 05/17/2022 11:5 6 AM EDT us Tamia Rosario HISTORICAL/NON ORDERABLE LABS Fi nal Result Performing Organization Address City/[facility]/ZIP Co de Phone Number [facility] [address] from Last 3 Months or Most Recently Relevant to Health Maintenance Insurance [facility] C3 Care Teams Hydrotechnical Specialist Relationship Specialty Start Date End Date Eva Barajas DO [address] [place] [phone] PCP - General Family Medicine 09/02/18
--- OUTSIDE RECORDS SUMMARY | 2025-05-20 11:03 | XMS_ITS | Encounter Summary ---
Author Organization [employer] Address [address] [place] [address] 7 [place] [address] Care Team Providers Care Occupational Therapy Director Name Role Phone Eva Barajas DO Primary Care Provider + [phone] Encounter Details Date Type Department Care Team ([facility] st Contact Info) Description 05/02/2023 Telephone [facility] CHC MED & PEDS [address] [place], [place] [phone] Eva Barajas DO [address] [place], [place] [phone] Social History Tobacco Use Types Packs/Day Years [...] - 05/02/2023 9:49 AM EDT Discard task. Iap Displays Analyst booked appt with Available slot. documented in this encounter Plan of Treatment Not on file documented as of this encounter Visit Diagnoses Not on filedocumented in this encounter Care Teams Occupational Therapy Director Relationship Specialty Start Date End Date Eva Barajas DO [address] [place], [place] [phone] PCP - General Family Medicine 09/02/18 documented as of this encounter
== END 2025-05-20 11:04 | disposition home or self-care (01) ==
LOC: HO.HWS 09:27
PROVIDERS: PCP Internal Medicine; Visit Provider Advanced Practice Midwife
DX: N93.9 Abnormal uterine and vaginal bleeding, unspecified (principal); Z01.419 Encounter for gynecological examination (general) (routine) without abnormal findings
CPT/HCPCS: 99212; 99395; 99459

== ENCOUNTER 2025-05-26 15:59 | Outpatient (REF) | payer MEDICAID, SELFPAY ==
--- OUTSIDE RECORDS SUMMARY | 2025-05-26 11:30 | XMS_ITS | Encounter Summary ---
Author Organization [employer] Address [address] [place] [address] 7 [place] [address] Care Team Providers Care Freezer Operator Name Role Phone Eva Barajas DO Primary Care Provider + [phone] Encounter Details Date Type Department Care Team ([facility] st Contact Info) Description 05/26/2025 11:30 AM EDT [facility] [address] [place], [place] [phone] Eva Barajas DO [address] [place], [place] [phone] Inflamed external hemorrhoid (Primary Dx); History of Helicobacter pylori infection; Encounter for immunization; Obesity (BMI 30-39.9) Social History Tobacco Use Types Packs/Day Years [...] AM EDT documented as of this encounter Last Filed Vital Signs Vital Sign Reading Time Taken Comments Blood Pressure 118/76 05/26/2025 11:49 AM EDT Pulse 88 05/26/2025 11:49 AM EDT Temperature 36.6 C (97.8 F) 05/26/2025 11:49 AM EDT Respiratory Rate 16 05/26/2025 11:49 AM EDT Oxygen Saturation - - Inhaled Oxygen Concentration - - Weight 101 kg (223 lb 9.6 oz) 05/26/2025 11:49 A M EDT Height 167.6 cm (5' 6 ) 05/26/2025 11:49 AM EDT Body Mass Index 36.09 05/26/2025 11:49 AM EDT documented in this encounter Plan of Treatment Upcoming Encounters Date Type Department Care Team (Late st Contact Info) Description 06/23/2025 9:30 AM EDT Office Visit [facility] [address] [place] [address] Eva Barajas DO [address] [place] [address] Scheduled Orders Name Type Priority Associated Diagnoses Orde r Schedule Helicobacter pylori, Urea Breath Test Lab Routine History of Helicobacter pylori infection Expected: 05/26/2025 (Approximate), Expires: 05/26/2026 documented as of this encounter Visit Diagnoses Diagnosis Inflamed external hemorrhoid- Primary History of Helicobacter pylori infection Encounter for immunization Obesity (BMI 30-39.9) documented in this encounter Additional Health Concerns Assessment Noted Time PHQ-9 Depression Total Score: 0 03/15/20 25 10:47 AM EDT documented as of this encounter Care Teams Freezer Operator Relationship Specialty Start Date End Date Eva Barajas DO [address] [place] [address] PCP - General Family Medicine 09/02/18 documented as of this encounter
--- OUTSIDE RECORDS SUMMARY | 2025-05-26 18:00 | XMS_ITS | Encounter Summary ---
Author Organization [employer] Address [address] [place] [address] 7 [place] [address] Care Team Providers Care Weaving Professor Name Role Phone Eva Barajas DO Primary Care Provider + [phone] Reason for Visit * Reason Onset Date Comments Chart Prep 05/25/2025 Encounter Details Date Type Department Care Team (Late st Contact Info) Description 05/25/2025 Telephone [facility] MEDICINE [address] [place], [place] [phone] Eva Barajas DO [address] [place], [place] [phone] Chart Prep Social History Tobacco Use Types Packs/Day Years [...] encounter Miscellaneous Notes * Telephone Encounter - Yanique Martinez MA - 05/25/2025 10:13 AM EDT Chart Prep Labs: done Images: not applicable Referrals: not applicable Vaccines due: Covid, Flu, and HPV Screenings: LMP Overdue care gaps: Oral health screening documented in this encounter Plan of Treatment Upcoming Encounters Date Type Department Care Team (Late st Contact Info) Description 06/23/2025 9:30 AM EDT Office Visit [facility] MEDICINE [address] [place] [address] Eva Barajas DO [address] [place] [address] documented as of this encounter Visit Diagnoses Not on filedocumented in this encounter Additional Health Concerns Assessment Noted Time PHQ-9 Depression Total Score: 0 03/15/20 25 10:47 AM EDT documented as of this encounter Care Teams Weaving Professor Relationship Specialty Start Date End Date Eva Barajas DO [address] [place] [address] PCP - General Family Medicine 09/02/18 documented as of this encounter
--- OUTSIDE RECORDS SUMMARY | 2025-05-26 18:00 | XMS_ITS | Encounter Summary ---
Author Organization [employer] Address [address] [facility] 7 [place] [address] Care Team Providers Care Land Use Planner Name Role Phone Eva Barajas DO Primary Care Provider + [phone] Encounter Details Date Type Department Care Team (Latest Contact Info) Description 05/26/2025 Travel Social History Tobacco Use Types Packs/Day Years [...] as of this encounter Plan of Treatment Upcoming Encounters Date Type Department Care Team (Late st Contact Info) Description 06/23/2025 9:30 AM EDT Office Visit [facility] MEDICINE [address] [place] [address] Eva Barajas DO [address] [place] [address] documented as of this encounter Visit Diagnoses Not on filedocumented in this encounter Additional Health Concerns Assessment Noted Time PHQ-9 Depression Total Score: 0 03/15/20 25 10:47 AM EDT documented as of this encounter Care Teams Land Use Planner Relationship Specialty Start Date End Date Eva Barajas DO [address] [place] [address] PCP - General Family Medicine 09/02/18 documented as of this encounter
--- OUTSIDE RECORDS SUMMARY | 2025-05-26 18:00 | XMS_ITS | Encounter Summary ---
Author Organization [employer] Address [address] [place] [address] 7 [place] [address] Care Team Providers Care Horse Racer Name Role Phone Eva Barajas DO Primary Care Provider + [phone] Encounter Details Date Type Department Care Team (Late Contact Info) Description 05/02/2023 Telephone [facility] CHC MED & PEDS [address] [place] [address] Eva Barajas DO [address] [place], [place] [phone] Social History Tobacco Use Types Packs/Day Years [...] encounter Miscellaneous Notes * Telephone Encounter - Ganesh Hallman - 05/02/2023 9:49 AM EDT Discard task. Teleradiologist booked appt with Available slot. documented in this encounter Plan of Treatment Upcoming Encounters Date Type Department Care Team (Late Contact Info) Description 06/23/2025 9:30 AM EDT Office Visit [facility] MEDICINE [address] [place] [address] Eva Barajas DO [address] [place] [address] documented as of this encounter Visit Diagnoses Not on filedocumented in this encounter Care Teams Horse Racer Relationship Specialty Start Date End Date Eva Barajas DO [address] [place] [address] PCP - General Family Medicine 09/02/18 documented as of this encounter
--- OUTSIDE RECORDS SUMMARY | 2025-05-26 18:00 | XMS_ITS | Encounter Summary ---
Author Organization [employer] Address [address] [facility] 7 [place] [address] Care Team Providers Care Operative Supervisor Name Role Phone Eva Barajas DO Primary Care Provider + [phone] Encounter Details Date Type Department Care Team (Latest Contact Info) Description 05/25/2025 Travel Social History Tobacco Use Types Packs/Day [...] Description 06/23/2025 9:30 AM EDT Office Visit [facility] MEDICINE [address] [place] [address] Eva Barajas DO [address] [place] [address] documented as of this encounter Visit Diagnoses Not on filedocumented in this encounter Additional Health Concerns Assessment Noted Time PHQ-9 Depression Total Score: 0 03/15/20 25 10:47 AM EDT documented as of this encounter Care Teams Operative Supervisor Relationship Specialty Start Date End Date Eva Barajas DO [address] [place] [address] PCP - General Family Medicine 09/02/18 documented as of this encounter
--- OUTSIDE RECORDS SUMMARY | 2025-05-26 18:01 | XMS_ITS | Encounter Summary ---
Author Organization [employer] Address [address] [place] [address] 7 [place] [address] Care Team Providers Care Petroleum Blending Plant Operator Name Role Phone Eva Barajas DO Primary Care Provider + [phone] Encounter Details Date Type Department Care Team ([facility] st Contact Info) Description 05/21/2025 Orders Only [facility] MEDICINE [address] [place], [place] [phone] Eva Barajas DO [address] [place], [place] [phone] Social History Tobacco Use Types Packs/Day Years [...] Description 06/23/2025 9:30 AM EDT Office Visit [facility] MEDICINE [address] [place], [place] [phone] Eva Barajas DO [address] [place] [address] documented as of this encounter Procedures Procedure Name Priority Date/Time Associated Diagnosis Comments QUANTIFERON(R)-TB GOLD PLUS, 1 TUBE Routine 05/21/2025 9:42 AM EDT documented in this encounter Results * QuantiFERON??-TB Gold Plus, 1 Tube (05/21/2025 9:42 AM EDT) [facility] Quantiferon -TB Gold Plus, 1 Tube NEGATIVE NEGATIVE [facility] [employer] Comment: Negative test result. M. tuberculosis complex infection unlikely. NIL 0.02 IU/mL [facility] Team [facility] MITOGEN-NIL 6.99 IU/mL [facility] Team [facility] TB1-NIL <0.00 IU/mL [facility] Team [facility] TB2-NIL <0.00 IU/mL [facility] Comment: The Nil tube value reflects the background interferon gamma immune response of the patient's blood sample. This value has been subtracted from the patient's displayed TB and Mitogen results. Lower than expected results with the Mitogen tube prevent false-negative Quantiferon readings by detecting a patient with a potential immune suppressive condition and/or suboptimal pre-analytical specimen handling. The TB1 Antigen tube is coated with the M. tuberculosis-specific antigens designed to elicit responses from TB antigen primed CD4+ helper T-lymphocytes. The TB2 Antigen tube is coated with the M. tuberculosis-specific antigens designed to elicit responses from TB antigen primed CD4+ helper and CD8+ cytotoxic T-lymphocytes. For additional information, please refer to https://education.Meditech/faq/RUV996 (This link is being provided for informational/ educational purposes only.) Your request to have a duplicate copy faxed has been acknowledged. Queued to: [id number] 05/21/2025 9:42 AM EDT 05/21/2025 9:43 AM EDT Narrative [facility] - 05/25/2025 12:32 PM EDT FASTING:NO AN UPDATE OR CORRECTION HAS BEEN MADE TO NAME FASTING: NO us Eva Barajas DO LAB BLOOD ORDERABLES Final R esult [facility] [address], [place] [address] [facility] [address] [place] [address] documented in this encounter Visit Diagnoses Not on filedocumented in this encounter Additional Health Concerns Assessment Noted Time PHQ-9 Depression Total Score: 0 03/15/20 25 10:47 AM EDT documented as of this encounter Care Teams Petroleum Blending Plant Operator Relationship Specialty Start Date End Date Eva Barajas DO [address] [place] [address] PCP - General Family Medicine 09/02/18 documented as of this encounter
--- OUTSIDE RECORDS SUMMARY | 2025-05-26 18:01 | XMS_ITS | Clinical Summary ---
Author Organization [facility] Address [address] [place] [address] Phone Care Team Providers Care Boiler Coverer Helper Name Role Phone JosieEva laughlin Primary Care [...] SMEAR 2009 Adult Td,Tdap Booster 11/04/2021 11/05/2011 INFLUENZA VACCINE (#1) 2025 3, 07/12/2021, 07/07/2020, Additional history exists COVID-19 VACCINE ( - season) 2025 MENINGOCOCCAL VACCINES (ACWY) Completed 03/28/2007 SMOKING STATUS [...] topic Medical Devices Not on file Insurance [facility] C3 ACO C3 ACO C3 ACO C3 ACO C3 ACO C3 ACO C3 ACO C3 ACO C3 ACO [facility] Care Teams Boiler Coverer Helper Relationship Specialty Start Date End Date Eva Barajas DO [address] [place] [address] PCP - General Family Medicine 05/29/21 Additional Source Comments The information contained in this document represents components of the legal health record. It is not the complete legal health record.[facility]
--- OUTSIDE RECORDS SUMMARY | 2025-05-26 18:01 | XMS_ITS | Clinical Summary ---
Author Organization [employer] Address [address] [place] [address] [address] [place] [address] Care Team Providers Care Creative Perfumer Name Role Phone Eva Barajas DO Primary Care Provider [phone] Allergies Active Allergy Reactions Criticality Noted Date [...] PAIN 40 tablet 1 05/04/20 25 Active polycarbophil (Fibercon) 625 MG tablet Take 1 tablet (625 mg) by mouth 2 times daily. 180 tablet 3 05/26/20 25 026 Active hydrocortisone (Proctosol HC) 2.5 % rectal cream Insert into the rectum if needed in the morning and at bedtime for hemorrhoids. 28 g 3 05/26/20 25 Active witch kylie-glycerin (Tucks) pad Apply topically if needed for irritation. 96 each 3 05/26/20 25 Active famotidine (Pepcid) 20 MG tablet Take 1 tablet (20 mg) by mouth if needed in the morning and at bedtime for heartburn. 60 tablet 3 05/26/20 25 026 Active phentermine 30 MG capsuleIndicat ions:Obesity (BMI 30-39.9) Take 1 capsule (30 mg) by mouth before breakfast. 30 capsule 2 05/26/20 25 025 Active naproxen (Naprosyn) 500 MG [...] order (will not trigger notification to Pharmacy)) phentermine 15 MG capsuleIndicat ions:Morbid obesity with BMI of 40.0-44.9, adult (CMS/HCC) Take 1 capsule (15 mg) by mouth before breakfast. 30 capsule 05/11/20 25 025 Discontinued(Do se adjustment) Active Problems Problem Noted Date Diagnosed Date Chronic pain of both knees 05/24/2025 BMI 40.0-44.9, adult 05/27/2023 Chronic gastroesophageal reflux [...] Encounters Date Type Department Care Team Description 05/26/2025 11:30 AM EDT Office Visit [facility] [address] [place] [phone] Eva Barajas DO Inflamed external hemorrhoid (Primary Dx); History of Helicobacter pylori infection; Encounter for immunization; Obesity (BMI 30-39.9) 05/26/2025 Travel 05/25/2025 Travel 05/25/2025 Telephone [facility] [place] [phone] Eva Barajas DO Chart Prep 05/21/2025 Orders Only [facility] [address] [place] [phone] Eva Barajas DO 05/05/2025 Orders Only [facility] External Provider, [facility] 05/04/2025 Telephone [facility] [place] [place] [address] Eva Barajas DO Lab Orders 05/02/2025 Refill [facility] [place] [address] Eva Barajas DO 04/13/2025 Refill [facility] [place] [address] Eva Barajas DO Morbid obesity with BMI of 40.0-44.9, adult ([facility]) 03/15/2025 10:30 AM EDT Office Visit [facility] [address] [place], [place] [phone] Eva Barajas DO Morbid obesity with BMI of 40.0-44.9, adult ([facility]) (Primary Dx); Chronic pain of both knees 03/15/2025 Travel 03/10/2025 Telephone [facility] [address] [place], [place] [phone] Eva Barajas DO Chart Prep 02/23/2025 Telephone [facility] [address] [place], [place] [phone] Eva Barajas DO Durable Medical Equipment from Last 3 Months Immunizations Immunization Administration Dates Next Due DTaP 07/11/2019, 2,07/09/1991,12/16,04/02/1990,01/31/1989 HPV, Quadrivalent 09/16/2007,03/28/2007 Hep B, Adolescent or Pediatric 2,11/15/2011,03/28/2007,11/02,07/03/2002 Hep B, adult 06/04/2012 IPV 07/09/1991, 1,04/02/1990,01/31 Influenza injectable quadriv alent IIV4 with preservative 07/07/2020,05/29/2016 Influenza injectable quadriv alent preservative free 05/27/2023,07/12/2021,07/11/2019,06/28,06/01/2017,07/25/2015 Influenza, Split (incl. melisa fied surface antigen) 06/04/2012 Influenza, seasonal, injecta ble, preservative free 05/26/2025,06/01/2024,07/31/2014 MMR 10/23/2011,07/09/1992,12/16/1990 Meningococcal MCV4P ACYW-135 03/28/2007 Mumps [...] 16 05/26/2025 11:49 AM EDT Oxygen Saturation 99% 06/01/2024 9:20 AM EDT Inhaled Oxygen Concentration - - Weight 101 kg (223 lb 9.6 oz) 05/26/2025 11:49 A M EDT Height 167.6 cm (5' 6 ) 05/26/2025 11:49 AM EDT Body Mass Index 36.09 05/26/2025 11:49 AM EDT Plan of Treatment Upcoming Encounters Date Type Department Care Team (Late st Contact Info) Description 06/23/2025 9:30 AM EDT Office Visit [facility] [address] [place], [place] [phone] Eva Barajas DO [address] [place] [address] Health Maintenance Due Date Last Done Comments Family Planning (PISQ) 2003 HPV Vaccines (3 - 3-dose series) 12/09/2007 09/16/2007, 03/28/2007 Pap Smear 2009 COVID-19 Vaccine ( season) 2025 Alcohol/Substance Use Screening 03/15/2026 03/15/2025 Depression Screening 03/15/2026 03/15/2025, 03/15/20 25 SDOH Screening 03/15/2026 03/15/2025 Disability Screening 05/25/2026 05/25/2025 Tobacco Screening 05/26/2026 05/26/2025 Cervical Cancer Screening 05/17/2027 HPV/Cotest 05/17/2027 05/17/2022, [...] Completed 07/01/2024 Hepatitis C Screening Completed 07/01/2024 Influenza Vaccine Completed 05/26/2025, , 05/27/2023, Additional history exists HIB Vaccines Aged Out No longer eligi [...] 1 TUBE Routine 05/21/2025 9:42 AM EDT CHLAMYDIA/N. GONORRHOEAE RNA, TMA, UROGENITAL Routine 05/20/2025 9:27 AM EDT BACTERIAL VAGINOSIS PANEL Routine 05/20/2025 9:27 AM EDT MR KNEE WO CONTRAST LEFT Routine 05/05/2025 3:27 PM EDT HEPATITIS C AB W/REFL TO HCV RNA, [...] Recently Relevant to Health Maintenance Results * QuantiFERON??-TB Gold Plus, 1 Tube (05/21/2025 9:42 AM EDT) [facility] Quantiferon -TB Gold Plus, 1 Tube NEGATIVE NEGATIVE [employer] [place] [employer] Comment: Negative test result. M. tuberculosis complex infection unlikely. NIL 0.02 IU/mL [facility] MITOGEN-NIL 6.99 IU/mL [facility] [place] [facility] TB1-NIL <0.00 IU/mL [facility] scroll kit-[facility] TB2-NIL <0.00 IU/mL [facility] [place] [facility] Comment: The Nil tube value reflects the [...] T-lymphocytes. For additional information, please refer to https://education.Kitchensurfing.Egodeus/faq/WJM609 (This link is being provided for informational/ educational purposes only.) Your request to have a duplicate copy faxed has been acknowledged. Queued to: [id number] 05/21/2025 9:42 AM EDT 05/21/2025 9:43 AM EDT Narrative [facility] - 05/25/2025 12:32 PM EDT FASTING:NO AN UPDATE OR CORRECTION HAS BEEN MADE TO NAME FASTING: NO us Eva Barajas DO LAB BLOOD ORDERABLES Final R esult Performing Organization Address City/[facility]/ZIP Co de Phone Number [facility] [address], [place] [phone] [employer] [facility] [address] [place] [phone] * Bacterial Vaginosis (05/20/2025 9:27 AM EDT) [facility] TRICHOMONAS VAGINALIS DETECTION BY PCR NOT DETECTED Not Detect [facility] BACTERIAL VAGINOSIS DETECTION BY PCR NEGATIVE Negative [facility] Comment:The BV organism targ ets of the Xpert Xpress MVP test can becommensal in women; Xpert Xpress MVP positive results forbacterial vaginosis should be considered in conjunction withother clinical and patient information to determine thedisease status. Organisms that are not detected by the XpertXpress MVP test have also been reported to be associatedwith BV and aerobic vaginitis.The Xpert Xpress MVP test performance has not been evaluatedin patients under the age of 14. PIPPA GROUP DETECTION BY PCR NOT DETECTED Not Detect [facility] Pippa glab krusei PCR NOT DETECTED Not Detect [facility] 05/20/2025 9:27 AM EDT 05/20/2025 5:14 PM EDT us Generic External Data Provider LAB MICROBIOLOGY - GENERAL ORDERABLES Final Result Performing Organization Address [facility] Co de Phone Number [facility] [address] [place] [phone] * Chlamydia/N. Gonorrhoeae RNA, TMA, Urogenitial (05/20/2025 9:27 AM EDT) Pathologist [facility] PCR NOT DETECTED Not Detect. [facility] Comment:A not detected test result does not exclude the possibilityof infection because test results can be affected byimproper specimen collection, concurrent antibiotic therapy,or the number of organisms in the specimen which may bebelow the sensitivity of the test. As with many diagnostictests, results from the Xpert CT/NG assay should beinterpreted in conjunction with other laboratory andclinical data available to the clinician.Xpert CT/NG performance has not been evaluated in patientsless than 14 years of age. The assay should not be used forthe evaluationof suspected sexual abuse or for other medico-legalindications. Additional testing is recommended in anycircumstance when false positive or false negative resultscould lead to adverse medical, social or psychologicalconsequences. NG PCR NOT DETECTED Not Detect. [facility] Comment:A not detected test result does not exclude the possibilityof infection because test results can be affected byimproper specimen collection, concurrent antibiotic therapy,or the number of organisms in the specimen which may bebelow the sensitivity of the test. As with many diagnostictests, results from the Xpert CT/NG assay should beinterpreted in conjunction with other laboratory andclinical data available to the clinician.Xpert CT/NG performance has not been evaluated in patientsless than 14 years of age. The assay should not be used forthe evaluationof suspected sexual abuse or for other medico-legalindications. Additional testing is recommended in anycircumstance when false positive or false negative resultscould lead to adverse medical, social or psychologicalconsequences. 05/20/2025 9:27 AM EDT 05/20/2025 5:14 PM EDT us Generic External Data Provider LAB MICROBIOLOGY - GENERAL ORDERABLES Final Result [facility] [address] [place] [phone] * MR Knee w/o Contrast Left (05/05/2025 3:27 PM EDT) Anatomical Region Laterality Modality Magnetic Resonan ce 05/05/2025 3:27 PM EDT Narrative 05/05/2025 5:18 PM EDT [address] [address] Magnetic Resonance Report Signed Patient: Violeta Dong MR#: [id number] 81 : 1990 Acct:[id number] Age/Sex: 34 / F ADM Date: 05/05/25 Loc: HO.MRI Attending Dr: Renae Stone PA-C Ordering Physician: Renae Stone PA-C Date of Service: 05/05/25 Procedure(s): MR knee LT wo con Accession Number(s): [id number] cc: Eva Barajas DO; Renae Stone PA-C [...] 05/05/25 1715 DD/ 1527 TD/TT: 05/05/25 1642 Cloth Folder Machine: Procedure Note Donotuseinterpreter, Image - 05/05/2025 [place] [address] Magnetic Resonance Report Signed Patient: Violeta Dong [facility]#: [id number] [birth year] : 1990Acct:[id number] Age/Sex: 34 / FADM Date: 05/05/25 Loc: HO.MRI Attending Dr: Renae Stone PA-C Ordering Physician: Renae Stone PA-C Date of Service: 05/05/25 Procedure(s): MR knee LT wo con Accession Number(s): [id number] cc: Eva Barajas DO; Renae Stone PA-C [...] 05/05/25 1715 DD/ 1527 TD/TT: 05/05/25 1642 Cloth Folder Machine: [facility] External Provider IMG MRI PROCEDURES Final Result * Hepatitis C Antibody with Reflex to HCV, RNA, Quantitative, Real-Time PCR (07/01/2024 11:29 AM EDT) Hepatitis C Antibody Nonreactive Nonreactive [facility] Comment:Antibodies to HCV no t detected; does not exclude early acuteHCV infection. Blood Venous blood specimen / Unknown 07/01/2024 11:29 AM EDT 07/01/2024 1:07 PM EDT Eva Barajas DO LAB BLOOD ORDERABLES Final R esult [facility] [address] [place] [phone] * HIV-1/2 Antigen and Antibodies, Fourth Generation, with Reflexes (07/01/2024 11:29 AM EDT) HIV AB/AG Nonreactive Nonreactive [facility] Comment:HIV-1 p24 Ag and/or HIV-1/HIV-2 Ab not detected.A test result that is nonreactive does not exclude thepossibility of exposure to or infection with HIV-1 and/orHIV-2. Nonreactive results in this assay for individualswith prior exposure to HIV-1 and/or HIV-2 may be due toantigen and antibody levels that are below the limit ofdetection of this assay.The [employer] HIV Ag/Ab Combo assay result andsupplemental assay results should be interpreted inconjunction with the patient's clinical presentation,history and other laboratory results. If the results areinconsistent with clinical evidence, additional testing issuggested to confirm the result. Blood Venous blood specimen / Unknown 07/01/2024 11:29 AM EDT 07/01/2024 1:07 PM EDT us Eva Barajas DO LAB BLOOD ORDERABLES Final R esult [facility] [address] [place] [phone] * (ABNORMAL) Lipid Panel, Standard (07/01/2024 11:29 AM EDT) Triglycerides 122 <150 mg/dL [facility] Comment:Desirable Triglyceri de: less than 150 mg/dLBorderline High Triglyceride 150-199 mg/dLHigh Triglyceride: 200-499 mg/dLVery High Triglyceride: greater than or equal to 5OO mg/dL Cholesterol 172 <200 mg/dL [facility] Comment:Desirable Cholestero l: less than 200 mg/dLBorderline High Cholesterol: 200-239 mg/dLHigh Cholesterol: greater than 239 mg/dL LDL Cholesterol Calculated 103(H) <100 mg/dL [facility] Comment:Desirable LDL: less than 100 mg/dLNear Optimal/Above Optimal LDL: 110- 129 mg/dLBorderline High LDL: 130-159 mg/dLHigh LDL: 160-189 mg/dLVery High LDL: greater than or equal to 190 mg/dL HDL Cholesterol 45 >40 mg/dL [facility] Comment:Desirable HDL: great er than 40 mg/dL Note: This HDL assay may give artificially low results in patients with liver disease. Blood Venous blood specimen / Unknown 07/01/2024 11:29 AM EDT 07/01/2024 1:07 PM EDT us Eva Barajas DO LAB BLOOD ORDERABLES Final R esult Performing Organization Address City/[facility]/ZIP Co de Phone Number [facility] [address] [place] [phone] * HPV E6/E7 RFLX KEKE 16 18/45 (05/17/2022 11:56 AM EDT) HPV mRNA E6/E7 rflx Not Detected Not Detected [facility] Comment: Methodology: Brush Sander-Mediated Amplification This assay detects E6/E7 viral messenger RNA (mRNA) from 14 high-risk HPV types (16,18,31,33,35,39,45,51,52,56,58,59,66,68). Cervical sources are required for HPV testing. If a vaginal source from a patient who has had a total hysterectomy with removal of cervix was submitted, please contact the testing laboratory for alternative testing options. For additional information, please refer to http://education.ExtendCredit.com/faq/GXI433i9 (This link if provided for information/ educational purposes only.) THIS TEST WAS PERFORMED AT: [employer] [address] [place] [address],[place] [phone] LORRAINE DAVIS MD 05/17/2022 11:5 6 AM EDT us Tamia Rosario HISTORICAL/NON ORDERABLE LABS Fi nal Result Performing Organization Address City/[facility]/ZIP Co de Phone Number [facility] [address] from Last 3 Months or Most Recently Relevant to Health Maintenance Insurance [facility] C3 Care Teams Creative Perfumer Relationship Specialty Start Date End Date Eav Barajas DO [address] [place] [phone] PCP - General Family Medicine 09/02/18
== END 2025-05-26 16:00 | disposition home or self-care (01) ==
LOC: HO.HHCLNP 15:59
PROVIDERS: Visit Provider Family Medicine
DX: Z86.19 Personal history of other infectious and parasitic diseases (principal)
CPT/HCPCS: 83013

== ENCOUNTER 2025-06-08 18:03 | Outpatient (REF) | payer MEDICAID, SELFPAY ==
--- NOTE | ~2025-06-08 | MR_ITS ---
EXAMINATION: MR KNEE WITHOUT CONTRAST, RIGHT CLINICAL INFORMATION: Primary osteoarthritis . Patient reports prior ligament repair. COMPARISON: None available. TECHNIQUE: MRI of the knee without contrast was performed using routine sequences on a high-field scanner. FINDINGS: MENISCI: Medial Meniscus: Irregular superior surface tear in the posterior horn. Mild medial extrusion of the body, with degenerative signal. Small focus of susceptibility artifact posteriorly. Lateral Meniscus: Intact LIGAMENTS: Cruciate: Intact Collateral: MCL is intact. Biceps femoris, iliotibial band are intact. There is mild edema in the interface between the iliotibial band and the lateral femoral condyle, which could represent sequela of iliotibial band friction syndrome in the appropriate clinical circumstance. EXTENSOR MECHANISM: Multiple foci of susceptibility artifact associated with the extensor mechanism, including in the region of the distal quadriceps tendon, the patella , from prior surgery. Mild T2 signal in the distal quadriceps could reflect mild tendinosis or postsurgical changes. Correlate with surgical history.. No measurable tear is seen. Patellar tendon is intact. ARTICULAR CARTILAGE/BONE: Patellofemoral Compartment: Foci of susceptibility artifact along the medial trochlea. Mild chondromalacia present, suggesting minimal degeneration. Medial Compartment: Mild-moderate arthritis. There is nonuniform chondral thinning in the weightbearing compartment, subchondral tibial and femoral cyst/edema... Lateral Compartment: Tiny marginal osteophytes. No fracture. JOINT FLUID AND BURSAE: Small joint fluid. Trace Iglesias's cyst. Subcutaneous edema. MR/MR knee RT wo con IMPRESSION: * Tear of the medial meniscal posterior horn. * Edema signal in between the iliotibial band and the lateral femoral condyle, could represent sequela of iliotibial band friction syndrome in the appropriate clinical circumstance. * Foci of susceptibility artifact in the region of the extensor mechanism. Mild heterogeneous signal in the distal quadriceps tendon could reflect postsurgical changes, tendinosis. No measurable tear is seen. * Mild-moderate medial compartment arthritis. Minimal patellofemoral and lateral compartment degeneration. Electronically signed by: Moshe Colmenares MD 06/09/2025 10:23 AM EDT
--- OUTSIDE RECORDS SUMMARY | 2025-06-08 19:06 | XMS_ITS | Clinical Summary ---
Author Organization [employer] Address [address] [place] [address] 7 [place] [address] Care Team Providers Care Quick Print Operator Name Role Phone Eva Barajas Primary Care Provider + [phone] Allergies Active Allergy Reactions Criticality Noted Date Comments Polyethylene Glycol Dizziness,Hives,Shor tness of breath High 05/27/2023 Polyethylene Glycol 3350 Dizziness 05/01/2021 Other reaction(s): Hives, Nausea / Vomiting Medications acetaminophen (Tylenol 8 Hour) 650 MG ER [...] 30 capsule 2 05/26/20 25 025 Active baclofen (Lioresal) 10 MG tablet TAKE 1 TABLET (10 MG) BY MOUTH NEEDED IN THE MORNING , AT NOON, AND AT BEDTIME FOR MUSCLE SPASMS 60 tablet 1 06/04/20 25 Active baclofen (Lioresal) 10 MG tablet Take 1 tablet (10 mg) by mouth if needed in the morning, at noon, and at bedtime for muscle spasms. 60 tablet 1 03/15/20 25 025 Discontinued phentermine 15 MG capsuleIndicat ions:Morbid obesity with BMI of 40.0-44.9, adult (CMS/[facility]) (HCC) Take 1 capsule (15 mg) by mouth before breakfast. 30 capsule 04/14/20 25 025 Discontinued(Re order (will not trigger notification to Pharmacy)) phentermine 15 MG capsuleIndicat ions:Morbid obesity with BMI of 40.0-44.9, adult (CMS/HCC) (HCC) Take 1 capsule (15 mg) by mouth before breakfast. 30 capsule 05/11/20 25 025 Discontinued(Do se adjustment) Active Problems Problem Noted Date Diagnosed Date Chronic pain of both knees 05/24/2025 BMI 40.0-44.9, adult (CMS/HCC) 05/27/2023 Chronic gastroesophageal reflux disease 06/04/20 12 [...] Encounters Date Type Department Care Team Description 06/04/2025 Refill [facility] [place] [address] Eva Barajas DO 05/26/2025 11:30 AM EDT Office Visit [facility] [place] [address] Eva Barajas DO Inflamed external hemorrhoid (Primary Dx); History of Helicobacter pylori infection; Encounter for immunization; Obesity (BMI 30-39.9) 05/26/2025 Orders Only [facility] [place] [address] Eva Barajas DO 05/26/2025 Travel 05/25/2025 Travel 05/25/2025 Telephone [facility] [place] [address] Eva Barajas DO Chart Prep 05/21/2025 Orders Only [facility] [place] [address] Eva Barajas DO 05/05/2025 Orders Only [facility] External Provider, [facility] 05/04/2025 Telephone [facility] [place] [place] [address] Eva Barajas DO Lab Orders 05/02/2025 Refill [facility] [address] [place] [address] Eva Barajas DO 04/13/2025 Refill [facility] [address] [place] [address] Eva Barajas DO Morbid obesity with BMI of 40.0-44.9, adult ([facility]) 03/15/2025 10:30 AM EDT Office Visit [facility] [address] [place] [address] Eva Barajas DO Morbid obesity with BMI of 40.0-44.9, adult ([facility]) (Primary Dx); Chronic pain of both knees 03/15/2025 Travel 03/10/2025 Telephone [facility] [address] [place] [address] Eva Barajas DO Chart Prep from Last 3 Months Immunizations Immunization Administration [...] 06/23/2025 9:30 AM EDT Office Visit [facility] [address] [place], [place] [phone] Eva Barajas DO [address] [place] [address] Health Maintenance Due Date Last Done Comments [...] Procedure Name Priority Date/Time Associated Diagnosis Comments HELICOBACTER PYLORI, UREA BREATH TEST Routine 05/26/2025 12:30 PM EDT QUANTIFERON(R)-TB GOLD PLUS, 1 TUBE Routine 05/21/2025 [...] Recently Relevant to Health Maintenance Results * Helicobacter pylori, Urea Breath Test (05/26/2025 12:30 PM EDT) H. pylori Breath Test Negative Negative [facility] Comment:Antimicrobials, prot on pump inhibitors and bismuthpreparations are known to suppress H. pylori. Ingestingthese medications within two weeks prior to performing thebreath test may produce negative test results. A positiveresult is still clinically valid. 05/26/2025 12:3 0 PM EDT 05/26/2025 4:00 PM EDT us Eva Barajas DO LAB BODY FLUIDS AND STOOLS O RDERABLES Final Result [facility] [address] [place] [address] [phone] * QuantiFERON??-TB Gold Plus, 1 Tube (05/21/2025 9:42 AM EDT) Quantiferon -TB Gold Plus, 1 Tube NEGATIVE NEGATIVE [facility] Comment: Negative test result. M. tuberculosis complex infection unlikely. NIL 0.02 IU/mL [facility] [place] [facility] MITOGEN-NIL 6.99 IU/mL [facility] TB1-NIL <0.00 IU/mL [facility] TB2-NIL <0.00 IU/mL [facility] Comment: The Nil tube value reflects [...] T-lymphocytes. For additional information, please refer to https://education.[employer]/faq/WFR680 (This link is being provided for informational/ educational purposes only.) Your request to have a duplicate copy faxed has been acknowledged. Queued to: [id number] 05/21/2025 9:42 AM EDT 05/21/2025 9:43 AM EDT Narrative [facility] - 05/25/2025 12:32 PM EDT FASTING:NO AN UPDATE OR CORRECTION HAS BEEN MADE TO NAME FASTING: NO us Eva Barajas DO LAB BLOOD ORDERABLES Final R esult [facility] [address], [place] [address] [facility] [address] [place] [address] * Bacterial Vaginosis (05/20/2025 9:27 AM EDT) TRICHOMONAS VAGINALIS DETECTION BY PCR NOT DETECTED Not Detect [facility] BACTERIAL VAGINOSIS DETECTION BY PCR NEGATIVE Negative [facility] Comment:The BV organism targ ets [...] DETECTION BY PCR NOT DETECTED Not Detect [facility] Pippa glab krusei PCR NOT DETECTED Not Detect [facility] 05/20/2025 9:27 AM EDT 05/20/2025 5:14 PM EDT us Generic External Data Provider LAB MICROBIOLOGY - GENERAL ORDERABLES Final Result [facility] [address] [place] [phone] * Chlamydia/N. Gonorrhoeae RNA, TMA, Urogenitial (05/20/2025 9:27 AM EDT) CT PCR NOT DETECTED Not Detect. [facility] Comment:A not detected test result [...] psychologicalconsequences. NG PCR NOT DETECTED Not Detect. [facility] Comment:A not detected test result [...] GENERAL ORDERABLES Final Result Performing Organization Address City/State/[facility] Co de Phone Number [facility] [address] [place] [phone] * MR Knee w/o Contrast Left (05/05/2025 3:27 PM EDT) Anatomical Region Laterality Modality Magnetic Resonan ce 05/05/2025 3:27 PM EDT Narrative 05/05/2025 5:18 PM EDT [place] [address] Magnetic Resonance Report Signed Patient: Violeta Dong MR#: [id number] [birth year] : 1990 Acct:[id number] Age/Sex: 34 / F ADM Date: 05/05/25 Loc: HO.MRI Attending Dr: Renae Stone PA-C Ordering Physician: Renae Stone PA-C Date of Service: 05/05/25 Procedure(s): MR knee LT wo con Accession Number(s): [id number] cc: Eva Barajas Ta-Mara PA-C Reason for [...] 05/05/25 1715 DD/ 1527 TD/TT: 05/05/25 1642 Dress Draper: Procedure Note Donotuseinterpreter, Image - 05/05/[address] [address] Magnetic Resonance Report Signed Patient: Violeta Dong [facility]#: [id number] 79 : 1990Acct:[id number] Age/Sex: 34 / FADM Date: 05/05/25 Loc: HO.MRI Attending Dr: Renae Stone PA-C Ordering Physician: Renae Stone PA-C Date of Service: 05/05/25 Procedure(s): MR knee LT wo con Accession Number(s): [id number] cc: Eva Barajas DO; Renae Stone PA-C [...] 05/05/25 1715 DD/ 1527 TD/TT: 05/05/25 1642 Dress Draper: [facility] External Provider IMG MRI PROCEDURES Final Result * Hepatitis C Antibody with Reflex to HCV, RNA, Quantitative, Real-Time PCR (07/01/2024 11:29 AM EDT) Hepatitis C Antibody Nonreactive Nonreactive [facility] Comment:Antibodies to HCV no t detected; does not exclude early acuteHCV infection. Blood Venous blood specimen / Unknown 07/01/2024 11:29 AM EDT 07/01/2024 1:07 PM EDT Eva Barajas DO LAB BLOOD ORDERABLES Final R esult [facility] [address] [place] [phone] * HIV-1/2 Antigen and Antibodies, Fourth Generation, with Reflexes (07/01/2024 11:29 AM EDT) HIV AB/AG Nonreactive Nonreactive [facility] Comment:HIV-1 p24 Ag and/or HIV-1/HIV-2 Ab not detected.A test result that is nonreactive does not exclude thepossibility of exposure to or infection with HIV-1 and/orHIV-2. Nonreactive results in this assay for individualswith prior exposure to HIV-1 and/or HIV-2 may be due toantigen and antibody levels that are below the limit ofdetection of this assay.The [employer] HIV Ag/Ab Combo assay result andsupplemental assay results should be interpreted inconjunction with the patient's clinical presentation,history and other laboratory results. If the results areinconsistent with clinical evidence, additional testing issuggested to confirm the result. Blood Venous blood specimen / Unknown 07/01/2024 11:29 AM EDT 07/01/2024 1:07 PM EDT Result [facility] Eva Barajas DO LAB BLOOD ORDERABLES Final R esult [facility] [address] [place] [phone] * (ABNORMAL) Lipid Panel, Standard (07/01/2024 11:29 AM EDT) Triglycerides 122 <150 mg/dL [facility] Comment:Desirable Triglyceri de: less than 150 mg/dLBorderline High Triglyceride 150-199 mg/dLHigh Triglyceride: 200-499 mg/dLVery High Triglyceride: greater than or equal to 5OO mg/dL Cholesterol 172 <200 mg/dL [facility] Comment:Desirable Cholestero l: less than 200 mg/dLBorderline High Cholesterol: 200-239 mg/dLHigh Cholesterol: greater than 239 mg/dL LDL Cholesterol Calculated 103(H) <100 mg/dL [facility] Comment:Desirable LDL: less than 100 mg/dLNear Optimal/Above Optimal LDL: 110- 129 mg/dLBorderline High LDL: 130-159 mg/dLHigh LDL: 160-189 mg/dLVery High LDL: greater than or equal to 190 mg/dL HDL Cholesterol 45 >40 mg/dL [facility] Comment:Desirable HDL: great er than 40 mg/dL Note: This HDL assay may give artificially low results in patients with liver disease. Blood Venous blood specimen / Unknown 07/01/2024 11:29 AM EDT 07/01/2024 1:07 PM EDT Eva Barajas DO LAB BLOOD ORDERABLES Final R esult [facility] [address] [place] [phone] * HPV E6/E7 RFLX KEKE 16 18/45 (05/17/2022 11:56 AM EDT) HPV mRNA E6/E7 rflx Not Detected Not Detected [facility] Comment: Methodology: Service Technician-Mediated Amplification This assay detects E6/E7 viral messenger RNA (mRNA) from 14 high-risk HPV types (16,18,31,33,35,39,45,51,52,56,58,59,66,68). Cervical sources are required for HPV testing. If a vaginal source from a patient who has had a total hysterectomy with removal of cervix was submitted, please contact the testing laboratory for alternative testing options. For additional information, please refer to http://education.[employer]/faq/FZP642f2 (This link if provided for information/ educational purposes only.) THIS TEST WAS PERFORMED AT: [facility] [address] [place] [address] [address]LO[address],[place] [address] LORRAINE DAVIS MD 05/17/2022 11:5 6 AM EDT us Tamia Rosario HISTORICAL/NON ORDERABLE LABS Fi nal Result [facility] [address] from Last 3 Months or Most Recently Relevant to Health Maintenance Insurance [facility] C3 Care Teams Quick Print Operator Relationship Specialty Start Date End Date Eva Barajas DO [address] [place] [phone] PCP - General Family Medicine 09/02/18
--- OUTSIDE RECORDS SUMMARY | 2025-06-08 19:06 | XMS_ITS | Encounter Summary ---
Author Organization [employer] Address [address] [place] [address] [address] [place] [address] Care Team Providers Care Automotive Heavy Mechanic Name Role Phone Eva Barajas DO Primary Care Provider + [phone] Encounter Details Date Type Department Care Team (Late Contact Info) Description 05/02/2023 Telephone [facility] [address] [place] [address] Eva Barajas DO [address] [place], [place] [phone] Social History Tobacco Use Types Packs/Day Years [...] - 05/02/2023 9:49 AM EDT Discard task. Methods Study Analyst booked appt with Available slot. documented in this encounter Plan of Treatment Upcoming Encounters Date Type Department Care Team (Late Contact Info) Description 06/23/2025 9:30 AM EDT Office Visit [facility] [address] [place] [address] Eva Barajas DO [address] [place] [address] documented as of this encounter Visit Diagnoses Not on filedocumented in this encounter Care Teams Automotive Heavy Mechanic Relationship Specialty Start Date End Date Eva Barajas DO [address] [place] [address] PCP - General Family Medicine 09/02/18 documented as of this encounter
--- OUTSIDE RECORDS SUMMARY | 2025-06-08 19:06 | XMS_ITS | Encounter Summary ---
Author Organization [employer] Address [address] [place] [address] 7 [place] [address] Care Team Providers Care Brick Layer Name Role Phone Eva Barajas DO Primary Care Provider + [phone] Reason for Visit * Reason Comments Med Refill Encounter Details Date Type Department Care Team ([facility] st Contact Info) Description 06/04/2025 Refill [facility] [address] [place], [place] [phone] Eva Barajas DO [address] [place], [place] [phone] Social History Tobacco Use Types Packs/Day Years [...] 9:30 AM EDT Office Visit [facility] [address] [place] [address] Eva Barajas DO [address] [place] [address] documented as of this encounter Visit Diagnoses Not on filedocumented in this encounter Additional Health Concerns Assessment Noted Time PHQ-9 Depression Total Score: 0 03/15/20 25 10:47 AM EDT documented as of this encounter Care Teams Brick Layer Relationship Specialty Start Date End Date Eva Barajas DO [address] [place] [address] PCP - General Family Medicine 09/02/18 documented as of this encounter
== END 2025-06-08 18:04 | disposition home or self-care (01) ==
LOC: HO.MRI 18:03
PROVIDERS: PCP Internal Medicine; Visit Provider Physician Assistant
DX: M17.11 Unilateral primary osteoarthritis, right knee (principal)
CPT/HCPCS: 73721

== ENCOUNTER → 2025-06-08 18:03 | Outpatient (BNV) | payer MEDICAID, SELFPAY | PROVIDERS: PCP Internal Medicine; Visit Provider Radiology Diagnostic Ultrasound | DX: M23.321 Other meniscus derangements, posterior horn of medial meniscus, right knee (principal); M17.11 Unilateral primary osteoarthritis, right knee | CPT/HCPCS: 73721 ==

== ENCOUNTER 2025-06-23 11:20 | Outpatient (REF) | payer MEDICAID, SELFPAY ==
--- OUTSIDE RECORDS SUMMARY | 2025-06-23 09:30 | XMS_ITS | Encounter Summary ---
Author Organization [employer] Address [address] [place] [address] [place] [address] Care Team Providers Care Head Transfer Clerk Name Role Phone Eva Barajas DO Primary Care Provider + [phone] Reason for Referral * Consultation (STAT) - Pending Review Specialty Diagnoses / Procedures Referred By Bossman abebe Referred To Contact General Surgery Diagnoses Inflamed external hemorrhoid Eva Barajas DO [address] [place] [address] Phone: tel: fax: Referral ID Status Reason Start Date Expiration Date Visits Requested Visits Authorized [id number] Pending Review Specialty Services Required 06/23/2026 1 1 Encounter Details Date Type Department Care Team (Latest Contact Info) Description 06/23/2025 9:30 AM EDT Office Visit [facility] [address], [place] [phone] Eva Barajas DO [address] [place] [address] Routine history and physical examination of adult (Primary Dx); Chronic gastroesophageal reflux disease; Chronic pain of both knees; Inflamed external hemorrhoid; PCB (post coital bleeding); Obesity (BMI 30-39.9); Dietary counseling; Exercise counseling Social History Tobacco Use Types Packs/Day Years Used Date Smoking Tobacco: Never Smokeless Tobacco: Never Alcohol Use Standard Drinks/Week Comments Never 0 (1 standard drink = 0.6 oz pur e alcohol) Depression Answer Date Recorded Patient Health Questionnaire-9 Score 0 06/23/2025 Patient Health Questionnaire-9 Score 0 06/23/2025 Last PHQ-9: Questionnaire Data Not on file 1 Housing Stability Answer Date Recorded What is [...] Date Recorded Patient Health Questionnaire-2 Score 0 06/23/2025 Internet Access Answer Date Recorded Internet Access [...] Sign Reading Time Taken Comments Blood Pressure 100/78 06/23/2025 10:11 AM EDT Pulse 92 06/23/2025 10:11 AM EDT Temperature 36.9 C (98.4 F) 06/23/2025 10:11 AM EDT Respiratory Rate 21 06/23/2025 10:11 AM EDT Oxygen Saturation 98% 06/23/2025 10:11 AM EDT Inhaled Oxygen Concentration - - Weight 96.2 kg (212 lb) 06/23/2025 10:11 AM EDT Height 165.1 cm (5' 5 ) 06/23/2025 10:11 AM EDT Body Mass Index 35.28 06/23/2025 10:11 AM EDT documented in this encounter Functional Status * Over the past 2 weeks, how often have you been bothered by any of the following problems? Question Answer Date of Assessment Author Patient Health Questionnaire -2 Score 0 06/23/2025 10:13 AM EDT Yanique Martinez MA * Little interest or pleasure in doing things Answer Date of Assessment Author Not at all 06/23/2025 10:13 AM EDT Yanique Martinez MA * Feeling down, depressed, or hopeless Answer Date of Assessment Author Not at all 06/23/2025 10:13 AM DENNIST Yanique Martinez MA * Trouble falling or staying asleep, or sleeping too much Answer Date of Assessment Author Not at all 06/23/2025 10:13 AM DENNIST Yanique Martinez MA * Feeling tired or having little energy Answer Date of Assessment Author Not at all 06/23/2025 10:13 AM EDT Yanique Martinez MA * Poor appetite or overeating Answer Date of Assessment Author Not at all 06/23/2025 10:13 AM DENNIST Yanique Martinez MA * Feeling bad about yourself - or that you are a failure or have let yourself or your family down Answer Date of Assessment Author Not at all 06/23/2025 10:13 AM Yanique Lee MA * Trouble concentrating on things, such as reading the newspaper or watching television Answer Date of Assessment Author Not at all 06/23/2025 10:13 AM EDT Yanique Martinez MA * Moving or speaking so slowly that other people could have noticed? Or the opposite - being so fidgety or restless that you have been moving around a lot more than usual. Answer Date of Assessment Author Not at all 06/23/2025 10:13 AM Yanique Lee MA * Thoughts that you would be better off or hurting yourself in some way Answer Date of Assessment Author Not at all 06/23/2025 10:13 AM Yanique Lee MA * Patient Health Questionnaire-9 Score Answer Date of Assessment Author 0 06/23/2025 10:13 AM EDT Yanique Martinez MA * Over the last 2 weeks, how often have you been bothered by any of the following problems? Question Answer Date of Assessment Author Feeling nervous, anxious, or on edge 0 06/23/2025 10:12 AM EDT Yanique Martinez MA Not being able to stop or co ntrol worrying 0 06/23/2025 10:12 AM EDT Yanique Martinez MA Worrying too much about diff erent things 0 06/23/2025 10:12 AM EDT Yanique Martinez MA Trouble relaxing 0 06/23/2025 10:12 AM EDT Yanique Martinez MA Being so restless that it is hard to sit still 0 06/23/2025 10:12 AM DENNIST Yanique Martinez MA Becoming easily annoyed or irritable 0 06/23/2025 10:12 AM EDT Yanique Martinez MA Feeling afraid as if somethi ng awful might happen 0 06/23/2025 10:12 AM EDT Yanique Martinez MA JHONNY-7 Total Score 0 06/23/2025 10:12 AM DENNIST Yanique Martinez MA documented as of this encounter Progress Notes * Eva Barajas, DO - 06/23/2025 9:30 AM EDT SUBJECTIVE Violeta Dong is a 34 y.o. female who presents for Annual Physical Exam. She was seen by ortho in APR for her knee pain and was referred for MRI. She was also fitted for knee brace. She says she has appt next mos. She has been going to PT which has helped. She says that her weight loss has also helped with her symptoms. 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 She says the CNM was trying to handle things herself with conservative measures, but she feels her symptoms are getting worse, so she is hoping Dr Vee will offer to do something to resolve the issue. She was referred to [facility] for evaluation of her hemorrhoids at last visit. She says that she has not received anything from [facility] or been contacted by the surgeon's office. She was referred to Dr. Baker but the referral team referred her to [facility]. She says her hemorrhoids have gotten much worse and feels that there is one that is prolapsed. She has been using the cream and wipes which have reduced her symptoms. She increased the dose of her phentermine last visit but is still having cravings with the current phentermine dose, and she really has to fight to give in to the urges. She lives with her and 5 children and 2 dogs. She and her have been together for nearly 20 years. Her kids range in age from 5-16. 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 She has never smoked cigarettes. She does not drink alcohol. No drug use. Review of Systems Constitutional: Negative for activity change, appetite change, chills, fever and unexpected weight change. Respiratory: Negative for cough and shortness of breath. Cardiovascular: Negative for chest pain, palpitations and leg swelling. Gastrointestinal: Positive for rectal pain (2/2 hemorrhoid). Negative for abdominal pain, diarrhea,nausea and vomiting. Genitourinary: Vaginal bleeding: PCB. Musculoskeletal: Positive for arthralgias. Neurological: Negative for weakness and headaches. Patient Active Problem List Diagnosis Chronic gastroesophageal reflux disease BMI 35.0-35.9,adult Chronic pain of both knees Allergies Allergen Reactions Polyethylene Glycol Dizziness, Hives and Shortness of breath Polyethylene Glycol 3350 Dizziness Other reaction(s): Hives, Nausea / Vomiting Past Medical History: Diagnosis Date Pulmonary embolism (HCC) 09/2011 Traumatic - no need for continued AC Past Surgical History: Procedure Laterality Date ENDOMETRIAL BIOPSY 01/07/2024 pathology negative LASIK 2022 ORIF FEMUR FRACTURE Right 2010 ORIF HUMERUS FRACTURE Right 2010 Family History Problem Relation Name Age of Onset Hypertension Mother Hyperlipidemia Mother Other (MVA) Father Other (Hypoplastic Left Heart Syndrom) Daughter Hypertension Maternal Grandmother Hyperlipidemia Maternal Grandmother Heart disease Maternal Grandmother Diabetes Maternal Grandmother No Known Problems Other OBJECTIVE Visit Vitals BP 100/78 (BP Location: Left arm, Patient Position: Sitting, BP Cuff Size: Adult) Pulse 92 Temp 98.4 ??F (36.9 ??C) (Oral) Resp 21 Ht 5' 5 (1.651 m) Wt 212 lb (96.2 kg) LMP 06/17/2025 (Exact Date) SpO2 98% BMI 35.28 kg/m?? OB Status Having periods Smoking Status Never BSA 2.1 m?? Physical Exam Constitutional: General: She is not in acute distress. Appearance: Normal appearance. HENT: Right Ear: Tympanic membrane, ear canal and external ear normal. Left Ear: Tympanic membrane, ear canal and external ear normal. Nose: Nose normal. Mouth/Throat: Pharynx: Oropharynx is clear. Eyes: Extraocular Movements: Extraocular movements intact. Conjunctiva/sclera: Conjunctivae normal. Pupils: Pupils are equal, round, and reactive to light. Cardiovascular: Rate and Rhythm: Normal rate and regular rhythm. Heart sounds: Normal heart sounds. No murmur heard. Pulmonary: Effort: Pulmonary effort is normal. Breath sounds: Normal breath sounds. Abdominal: General: Bowel sounds are normal. Palpations: Abdomen is soft. There is no mass. Tenderness: There is no abdominal tenderness. Musculoskeletal: Cervical back: Normal range of motion and neck supple. No tenderness. Lymphadenopathy: Cervical: No cervical adenopathy. Skin: General: Skin is warm and dry. Findings: No rash. Neurological: General: No focal deficit present. Mental Status: She is alert and oriented to person, place, and time. Cranial Nerves: No cranial nerve deficit. Motor: No weakness. Gait: Gait normal. Psychiatric: Mood and Affect: Mood normal. Thought Content: Thought content normal. Patient Health Questionnaire-9 Score: 0 (06/23/2025 10:13 AM) Patient Health Questionnaire-2 Score: 0 (06/23/2025 10:13 AM) Thoughts that you would be better off or hurting yourself in some way: Not at all (06/23/2025 10:13 AM) JHONNY-7 Total Score: 0 (06/23/2025 10:12 AM) Assessment/Plan Diagnoses and all orders for this visit: Routine history and physical examination of adult -s/p flu vaccine MAY 2025 -she declines COVID vaccine -s/p Tdap JUL 2019 -MMRV immune -Hep A/B immune -T-spot neg MAY 2024 -QuantiFERON Gold neg MAY 2025 -pap nml/HPV negative DEC 2023 at [facility] -mammo at 38 -A1c, LDL nml JUN 2024->repeat prior to next visit -STI/HIV screen negative JUN 2024 Chronic gastroesophageal reflux disease Improved -H. Pylori breath test negative May 2025 -cont pepcid prn Chronic pain of both knees Sx improved with weight loss/PT -knee XR with [id number] OA JAN 2025 -MRI L-knee with medial meniscal tear MAY 2025 -MRI R-knee with [id number] OA and medial meniscal tear JUN 2025 -cont naprosyn/tylenol prn -cont PT -f/u with ortho as scheduled Inflamed external hemorrhoid With worsening sx -cont fiber supplementation BID -cont proctosol cream prn -cont witch kylie wipes with BMs -advised [place] [facility] re: eval, contact info given -re-referred to [facility] -advised rtc if symptoms worsen PCB (post coital bleeding) With continued sx -BV panel and GC/CT neg MAY 2025 -pap nml/HPV neg DEC 2023 at [facility] -EMB with no atypia or hyperplasia JANUARY 2024 -pelvic US with no discreet fibroids and Nabothian cysts in the cervix DEC 2023 -keep upcoming eval with Dr Vee as scheduled Obesity (BMI 30-39.9) Weight down nearly 15 lbs since last visit, with worsening food cravings on current phentermine dose -increase phentermine to 37.5 mg daily -weight check in 3 mos -will transition to GLP-1 prn Dietary counseling Exercise counseling -encouraged [id number] Servings of fruit and vegetables each day 2 Hour limit of screen time 1 Hour of physical activity each day 0 Sugary drinks --Follow-up with me in 3 mos or sooner prn-- Current Outpatient Medications: acetaminophen (Tylenol 8 Hour) 650 MG ER tablet, Take 1 tablet (650 mg) by mouth every 8 (eight) hours if needed for mild pain. Do not crush, chew, or split., Disp: 60 tablet, Rfl: 1 baclofen (Lioresal) 10 MG tablet, TAKE 1 TABLET (10 MG) BY MOUTH NEEDED IN THE MORNING , AT NOON, AND AT BEDTIME FOR MUSCLE SPASMS, Disp: 60 tablet, Rfl: 1 Diclofenac Sodium 1 % gel, Apply 2 g topically if needed in the morning, at noon, in the evening, and at bedtime (pain)., Disp: 150 g, Rfl: 3 famotidine (Pepcid) 20 MG tablet, Take 1 tablet (20 mg) by mouth if needed in the morning and at bedtime for heartburn., Disp: 60 tablet, Rfl: 3 hydrocortisone (Proctosol HC) 2.5 % rectal cream, Insert into the rectum if needed in the morning and at bedtime for hemorrhoids., Disp: 28 g, Rfl: 3 naproxen (Naprosyn) 500 MG tablet, TAKE 1 TABLET (500 MG) BY MOUTH IN THE MORNING AND AT BEDTIME ASNEEDED FOR MILD PAIN, Disp: 40 tablet, Rfl: 1 phentermine 37.5 MG capsule, Take 1 capsule (37.5 mg) by mouth before breakfast., Disp: 30 capsule,Rfl: 2 polycarbophil (Fibercon) 625 MG tablet, Take 1 tablet (625 mg) by mouth 2 times daily., Disp: 180 tablet, Rfl: 3 witch kylie-glycerin (Tucks) pad, Apply topically if needed for irritation., Disp: 96 each, Rfl: 3 Scribe Attestation: Mason James, am serving as a scribe to document services personally performed by Eva Matson, based on the patient's response to questions by provider and provider's statements to me. 06/23/25 2:14 PM Physicians Attestation: Eva James DO, have reviewed the information by the scribe, Mason Danielle, for accuracy and agree with its content. documented in this encounter Plan of Treatment Scheduled Orders Name Type Priority Associated Diagnoses Orde r Schedule Chlamydia/N. Gonorrhoeae RNA, TMA, Urogenitial Microbiology Routine Routine history and physical examination of adult Chronic gastroesophageal reflux disease Chronic pain of both knees Inflamed external hemorrhoid PCB (post coital bleeding) Obesity (BMI 30-39.9) Ordered: 06/23/2025 HIV-1/2 Antigen and Antibodies, Fourth Generation, with Reflexes Lab Routine Routine history and physical examination of adult Chronic gastroesophageal reflux disease Chronic pain of both knees Inflamed external hemorrhoid PCB (post coital bleeding) Obesity (BMI 30-39.9) Expected: 06/23/2025 (Approximate), Expires: 06/23/2026 Hepatitis C Antibody with Reflex to HCV, RNA, Quantitative, Real-Time PCR Lab Routine Routine history and physical examination of adult Chronic gastroesophageal reflux disease Chronic pain of both knees Inflamed external hemorrhoid PCB (post coital bleeding) Obesity (BMI 30-39.9) Expected: 06/23/2025, Expires: 06/23/2026 RPR (Monitor) with Reflex to Titer Lab Routine Routine history and physical examination of adult Chronic gastroesophageal reflux disease Chronic pain of both knees Inflamed external hemorrhoid PCB (post coital bleeding) Obesity (BMI 30-39.9) Expected: 06/23/2025, Expires: 06/23/2026 Scheduled Referrals Name Type Priority Associated Diagnoses Orde r Schedule Referral to General Surgery Outpatient Referral STAT Inflamed external hemorrhoid Expected: 06/23/2025 (Approximate), Expires: 06/23/2026 documented as of this encounter Procedures Procedure Name Priority Date/Time Associated Diagnosis Comments VITAMIN D,25-OH,TOTAL,IA Routine 06/23/2025 11:24 AM EDT Routine history and physical examination of adult Chronic gastroesophageal reflux disease Chronic pain of both knees Inflamed external hemorrhoid PCB (post coital bleeding) Obesity (BMI 30-39.9) CBC Routine 06/23/2025 11:24 AM EDT Routine history and physical examination of adult Chronic gastroesophageal reflux disease Chronic pain of both knees Inflamed external hemorrhoid PCB (post coital bleeding) Obesity (BMI 30-39.9) TSH Routine 06/23/2025 11:24 AM EDT Routine history and physical examination of adult Chronic gastroesophageal reflux disease Chronic pain of both knees Inflamed external hemorrhoid PCB (post coital bleeding) Obesity (BMI 30-39.9) T4, FREE Routine 06/23/2025 11:24 AM EDT Routine history and physical examination of adult Chronic gastroesophageal reflux disease Chronic pain of both knees Inflamed external hemorrhoid PCB (post coital bleeding) Obesity (BMI 30-39.9) HEMOGLOBIN A1C Routine 06/23/2025 11:24 AM EDT Routine history and physical examination of adult Chronic gastroesophageal reflux disease Chronic pain of both knees Inflamed external hemorrhoid PCB (post coital bleeding) Obesity (BMI 30-39.9) HEPATIC FUNCTION PANEL Routine 06/23/2025 11:24 AM EDT Routine history and physical examination of adult Chronic gastroesophageal reflux disease Chronic pain of both knees Inflamed external hemorrhoid PCB (post coital bleeding) Obesity (BMI 30-39.9) LIPID PANEL, STANDARD Routine 06/23/2025 11:24 AM EDT Routine history and physical examination of adult Chronic gastroesophageal reflux disease Chronic pain of both knees Inflamed external hemorrhoid PCB (post coital bleeding) Obesity (BMI 30-39.9) BASIC METABOLIC PANEL Routine 06/23/2025 11:24 AM EDT Routine history and physical examination of adult Chronic gastroesophageal reflux disease Chronic pain of both knees Inflamed external hemorrhoid PCB (post coital bleeding) Obesity (BMI 30-39.9) documented in this encounter Results * (ABNORMAL) Basic Metabolic Panel (06/23/2025 11:24 AM EDT) Sodium 139 135 - 145 mmol/L [facility] Potassium 3.7 3.3 - 5.1 mmol/L [facility] Chloride 106 96 - 108 mmol/L [facility] Carbon Dioxide 26 22 - 29 mmol/L [facility] Anion Gap 11(L) 12 - 20 [facility] Urea Nitrogen (BUN) 12 9 - 16 mg/dL [facility] Creatinine, Serum 0.73 0.5 - 1.4 mg/dL [facility] Estimated Glomerular Filt Rate >60 [facility] Comment:Chronic Kidney Disea se: Estimated GFR < 60 mL/min/1.82q2Hcahed Kidney Disease: Estimated GFR < 15 mL/min/1.73m2 Glucose 93 60 - 115 mg/dL [facility] Calcium 9.6 8.4 - 10.2 mg/dL [facility] Blood Venous blood specimen / Unknown 06/23/2025 11:24 AM EDT 06/23/2025 1:04 PM EDT us Eva Barajas DO LAB BLOOD ORDERABLES Final R esult Performing Organization Address City/[facility]/ZIP Co de Phone Number [facility] [address] [place] [phone] * CBC (06/23/2025 11:24 AM EDT) White Blood Count 8.6 4.8 - 10.8 X10*3/uL [facility] Red Blood Count 4.53 4.20 - 5.50 X10*6/uL [facility] Hemoglobin 13.3 12.0 - 16.0 g/dl [facility] Hematocrit 38.0 37.0 - 47.0 % [facility] Mean Corpuscular Volume 83.9 80.0 - 98.0 fL [facility] Mean Corpuscular Hemoglobin 29.4 27.0 - 33.0 pg [facility] Mean Corpuscular HGB Conc 35.0 31.0 - 35.0 g/dl [facility] Red Cell Distribution Width 13.0 11.0 - 16.0 % [facility] Platelet Count 377 160 - 400 X10*3/uL [facility] Mean Platelet Volume 10.9 9.4 - 12.3 fL [facility] NRBC Pct Auto 0.0 0.0 - 0.2 /100WBC [facility] NRBC Abs Auto 0.000 0.0 - 0.012 X10*3/uL [facility] Blood Venous blood specimen / Unknown 06/23/2025 11:24 AM EDT 06/23/2025 1:04 PM EDT Eva Barajas DO LAB BLOOD ORDERABLES Final R esult [facility] [address] [place] [phone] * Hemoglobin A1c (06/23/2025 11:24 AM EDT) Hemoglobin A1c 5.1 <6.0 % [facility] Comment:Hemoglobin A1C Refer ence Range Adults: 4.8 - 6.0 % Non diabetic: < 6.0 % Goal: < 7.0 %Additional Action Suggested: > 8.0 %Note: Hemoglobin A1c results are invalid for patients with abnormal amounts of HbF. Blood transfusions may impact the HbA1c concentration in the patient sample. Estimated Average Glucose 100 mg/dL [facility] Comment:eAG = Estimated ave rage glucose which is %A1C expressed asaverage glucose, using the formula of the D4Q-[id number] Glucose study (ADAG), Diabetes Care, Vol.31,#8,Apr. 2007 Blood Venous blood specimen / Unknown 06/23/2025 11:24 AM EDT 06/23/2025 1:04 PM EDT us Eva Barajas DO LAB BLOOD ORDERABLES Final R esult [facility] [address] [place] [phone] * (ABNORMAL) Hepatic Function Panel (06/23/2025 11:24 AM EDT) Bilirubin, Total 1.8(H) 0.0 - 1.0 mg/dL [facility] Bilirubin, Direct 0.6(H) 0.0 - 0.5 mg/dL [facility] Aspartate Amino Transferase 23 5 - 31 U/L [facility] Alanine Aminotransferase 14 0 - 31 U/L [facility] Total Protein 7.9 6.5 - 8.0 g/dL [facility] Albumin Level 4.6 3.5 - 5.0 g/dL [facility] Alkaline Phosphatase 48 39 - 117 U/L [facility] Blood Venous blood specimen / Unknown 06/23/2025 11:24 AM EDT 06/23/2025 1:04 PM EDT Eva Barajas DO LAB BLOOD ORDERABLES Final R esult Performing Organization Address [facility]/ZIP Co de Phone Number [facility] [address] [place] [phone] * Vitamin D, 25-Hydroxy, Total, Immunoassay (06/23/2025 11:24 AM EDT) Vitamin D 25-OH Total 37.6 >30 ng/mL [facility] Comment: Health Based Reference Values*< 20 ng/mL [id number] ng/mL Insufficient> 30 ng/mL Sufficient*Candido KEE. N Engl J Med. 2007;357:266-280There is no well-established upper level of normal vitamin Dlevels. Some laboratories use 50 ng/mL as an upper limit ofnormal. However, toxicity is patient-dependent and may occurat any level. Careful correlation with the patient'spresentation is necessary and, if there is concern forvitamin D toxicity, treatment should be consideredirrespective of the serum level.Care must be taken in interpreting Vitamin D results fromdifferent laboratories and methodologies. Published datademonstrated that results from patients undergoinghemodialysis may show a negative bias when tested withvarious automated 25-OH vitamin D assays when compared toLC-MS/MS.When testing samples from patients whose predominant form ofVitamin D is Vitamin D2, such as patients receiving VitaminD2 supplementation, results that are subtherapeutic shouldbe confirmed with another method such as LC-MS/MS. Blood Venous blood specimen / Unknown 06/23/2025 11:24 AM EDT 06/23/2025 1:04 PM EDT Eva Barajas DO LAB BLOOD ORDERABLES Final R esult Performing Organization Address [facility] Co de Phone Number [facility] [address] [place] [phone] * TSH (06/23/2025 11:24 AM EDT) Thyroid Stimulating Hormone 1.37 0.32 - 4.0 uIU/mL [facility] Comment:TSH 3rd Generation ( [facility]) Blood Venous blood specimen / Unknown 06/23/2025 11:24 AM EDT 06/23/2025 1:04 PM EDT Eva Barajas DO LAB BLOOD ORDERABLES Final R esult Performing Organization Address City/[facility] Co de Phone Number [facility] [address] [place] [phone] * (ABNORMAL) Lipid Panel, Standard (06/23/2025 11:24 AM EDT) Pathologist [facility] Triglycerides 71 <150 mg/dL [facility] Comment:Desirable Triglyceri de: less than 150 mg/dLBorderline High Triglyceride 150-199 mg/dLHigh Triglyceride: 200-499 mg/dLVery High Triglyceride: greater than or equal to 5OO mg/dL Cholesterol 158 <200 mg/dL [facility] Comment:Desirable Cholestero l: less than 200 mg/dLBorderline High Cholesterol: 200-239 mg/dLHigh Cholesterol: greater than 239 mg/dL LDL Cholesterol Calculated 103(H) <100 mg/dL [facility] Comment:Desirable LDL: less than 100 mg/dLNear Optimal/Above Optimal LDL: 110- 129 mg/dLBorderline High LDL: 130-159 mg/dLHigh LDL: 160-189 mg/dLVery High LDL: greater than or equal to 190 mg/dL HDL Cholesterol 41 >40 mg/dL [facility] Comment:Desirable HDL: great er than 40 mg/dL Note: This HDL assay may give artificially low results in patients with liver disease. Blood Venous blood specimen / Unknown 06/23/2025 11:24 AM EDT 06/23/2025 1:04 PM EDT us Eva Barajas DO LAB BLOOD ORDERABLES Final R esult Performing Organization Address City/[facility]/ZIP Co de Phone Number [facility] [address] [place] [phone] [phone] * T4, Free (06/23/2025 11:24 AM EDT) Free T4 (Free Thyroxine) 0.97 0.71 - 1.85 ng/dL [facility] Blood Venous blood specimen / Unknown 06/23/2025 11:24 AM EDT 06/23/2025 1:04 PM EDT us Eva Barajas DO LAB BLOOD ORDERABLES Final R esult [facility] [address] [place] [phone] documented in this encounter Visit Diagnoses Diagnosis Routine history and physical examination of adult- Primary Chronic gastroesophageal reflux disease Chronic pain of both knees Inflamed external hemorrhoid PCB (post coital bleeding) Postcoital bleeding Obesity (BMI 30-39.9) Dietary counseling Dietary surveillance and counseling Exercise counseling documented in this encounter Additional Health Concerns Assessment Noted Time PHQ-9 Depression Total Score: 0 06/23/20 25 10:13 AM EDT documented as of this encounter Care Teams Head Transfer Clerk Relationship Specialty Start Date End Date Eva Barajas DO [address] [place] [address] PCP - General Family Medicine 09/02/18 documented as of this encounter
[2025-06-23 13:19] LABS: Hematocrit 38.0 % (37.0-47.0); Hemoglobin 13.3 g/dl (12.0-16.0); Mean Corpuscular HGB Conc 35.0 g/dl (31.0-35.0); Mean Corpuscular Hemoglobin 29.4 pg (27.0-33.0); Mean Corpuscular Volume 83.9 fL (80.0-98.0); NRBC Abs Auto 0.000 X10*3/uL (0.0-0.012); NRBC Pct Auto 0.0 /100WBC (0.0-0.2); Platelet Count 377 X10*3/uL (160-400); Red Blood Count 4.53 X10*6/uL (4.20-5.50); White Blood Count 8.6 X10*3/uL (4.8-10.8)
[2025-06-23 14:13] LABS: Alanine Aminotransferase 14 U/L (0-31); Albumin Level 4.6 g/dL (3.5-5.0); Alkaline Phosphatase 48 U/L (39-117); Anion Gap 11 (12-20); Aspartate Amino Transferase 23 U/L (5-31); Blood Urea Nitrogen 12 mg/dL (9-16); Calcium 9.6 mg/dL (8.4-10.2); Carbon Dioxide 26 mmol/L (22-29); Chloride 106 mmol/L (96-108); Cholesterol 158 mg/dL (<200); Estimated Glomerular Filt Rate > 60; HDL Cholesterol 41 mg/dL (>40); Potassium 3.7 mmol/L (3.3-5.1); Sodium 139 mmol/L (135-145); Total Protein 7.9 g/dL (6.5-8.0); Triglycerides 71 mg/dL (<150)
[2025-06-23 14:34] LABS: Free T4 (Free Thyroxine) 0.97 ng/dL (0.71-1.85); Thyroid Stimulating Hormone 1.37 uIU/mL (0.32-4.0)
--- OUTSIDE RECORDS SUMMARY | 2025-06-23 15:31 | XMS_ITS | Data Portability ---
Author Organization [facility], [address] Address [address] [place] [address] Assessment No assessment recorded. Plan of Treatment Reminders Order Date Submit Date Provider Last Modified By Organization Details Last Modified Time Details Appointments None recorded. Lab Mycobacteri um tuberculosi s stimulated gamma interferon, qual, blood 2022 023 [facility] ([facility], [address] [place] [address], [place], [address], 18:05:47 Referral None recorded. Procedures None recorded. Surgeries None recorded. Imaging None recorded. Medication Orders None recorded. Patient TargetsNo targets recorded. Patient InstructionsNo instructions recorded. Reason for Referral None Reported. Results Created Date Observation Date Name Description Value Unit Range Abnormal Flag Note LastModifiedBy Organization Detail LastModifiedTime 03/14/20 23 03/16/2023 QUANT IFERO N-TB GOLD PLUS quantiferon incubation INCUBA TION PERFOR MED. Not Available [facility] ([facility]) [address] [facility], [place], [address], 03/16/2023 18:05:47 03/14/20 23 03/16/2023 QUANT IFERO N-TB GOLD PLUS quantiferon criteria COMMEN T Quant iFERO N-TB Gold Plus is a quali tativ e indir ect test for M tuber culos is infec tion (incl uding disea se) and is inten ded for use in conju nctio n with risk asses sment , radio graph y, and other medic al and diagn ostic evalu ation s. The Quant iFERO N-TB Gold Plus resul t is deter mined by subtr actin g the Nil value from eithe r TB antig en (Ag) value . The Mitog en tube serve s as a contr ol for the test. Not Available [facility] ([facility]) [address] [place], [address], 03/16/2023 18:05:47 03/14/20 23 03/16/2023 QUANT IFERO N-TB GOLD PLUS quantiferon TB1 Ag value 0.01 IU/mL Not Available [facility] ([facility]) [address] [place], [address], 03/16/2023 18:05:47 03/14/20 23 03/16/2023 QUANT IFERO N-TB GOLD PLUS quantiferon TB2 Ag value 0.02 IU/mL Not Available [facility] ([facility]) [address] [place], [address], 03/16/2023 18:05:47 03/14/20 23 03/16/2023 QUANT IFERO N-TB GOLD PLUS quantiferon nil value 0.01 IU/mL Not Available [facility] ([facility]) [address] [place], [address], 03/16/2023 18:05:47 03/14/20 23 03/16/2023 QUANT IFERO N-TB GOLD PLUS quantiferon mitogen value >10.00 IU/mL Not Available [facility] ([facility]) [address] [place], [address], 03/16/2023 18:05:47 03/14/20 23 03/16/2023 QUANT IFERO N-TB GOLD PLUS quantiferon- TB gold plus NEGATI VE negati ve No respo nse to M tuber culos is antig ens detec rafa. Infec tion with M tuber culos is is unlik chao, but high risk indiv idual s shoul d be consi dered for addit ional testi ng (ATS/ IDSA/ CDC Clini antonio Pract ice Guide lines , 2017) . The refer ence range is an Antig en minus Nil resul t of <0.35 IU/mL . Chemi lumin escen ce immun oassa y metho dolog y Not Available [facility] ([facility]) [address], [place], [address], 03/16/2023 18:05:47 Result Notes None recorded. Procedures Surgical History Date Name Laterality Status Provider Name and Address Organization Details Recorded Time 03/14/20 OC-UDS Send Out Template NON DOT completed HILLARY RODRIGUEZ PA - [facility] 03/14/2023 08:57:30 03/14/20 OC - Venipuncture Template completed Felisa Cuellar PA - [facility] 03/14/2023 10:23:30 03/14/20 OC- Physical completed HILLARY RODRIGUEZ PA - [facility] 03/14/2023 08:35:43 Imaging Results None recorded. Procedure Notes None recorded. Medical Equipment None Reported. Medications Name Sig Start Date Stop Date Status Note LastModified by Organization Details LastModified Time polymyxin B sulfate 10,000 unit-trimet hoprim 1 mg/mL eye drops PUT 1 DROP INTO BOTH EYES 4 TIMES A DAY active Not Available Not Available No t Available diazepam 5 mg tablet TAKE 1 TABLET BY MOUTH ON SURGERY DAY active Not Available Not Available No t Available Vitals None Recorded Social History None recorded. Functional Status None recorded. Mental Status None recorded. Family History Nothing Reported. Medical History No medical history recorded. Gynecological HistoryNo gynecological history recorded. Obstetrics History GPAL:G 0 P 0 0 0 0 Past Encounters Encounter ID Performer Location Encounter Start Date Encounter Closed Date Diagnosis/Indication Diagnosis SNOMED-CT Code Diagnosis ICD10 Code Diagnosis IMO Codes Diagnosis Note [id number] [address] [address] [facility] [address] [facility] [place] [address] 03/28/2022 14:43:34 03/28/2022 16:35:27 [id number] Yamileth Prabhakar MD [address] [facility] [place] [address] 03/14/2023 08:28:07 03/14/2023 09:25:48 History and physical examination, occupation 450300798 Z02.1 Health Concerns Section Related Observation LastModified by Organization Detai ls LastModified Time None Recorded Concern Status LastModified by Organization Details LastModified Time None Recorded Advance Directives Directive None Recorded Payers Insurance Date Sequence Insurance Name Policy Number Policy Noble Covered Member ID Noble Member ID Guarantor Name 03/14/2023 [facility] RN NETWORK [facility] Rn Network [facility] Violeta Dong OBGyjadiel Episode No OBEpisode recorded.
--- OUTSIDE RECORDS SUMMARY | 2025-06-23 15:31 | XMS_ITS | Encounter Summary ---
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 documented in this encounter Plan of Treatment Not on file documented as of this encounter Visit Diagnoses Not on filedocumented in this encounter Care Teams Medical Insurance Collector Relationship Specialty Start Date End Date Eva Barajas DO [address] [place], [place] [phone] PCP - General Family Medicine 09/02/18 documented as of this encounter
--- OUTSIDE RECORDS SUMMARY | 2025-06-23 15:32 | XMS_ITS | Clinical Summary ---
Author Organization [facility] Address [address] [place] [phone] Phone Care Team Providers Care Nanny Babysitter Name Role Phone JosieEva laughlin Primary Care [...] 07/12/2021, 07/07/2020, Additional history exists COVID-19 VACCINE (2024- season) 2025 MENINGOCOCCAL VACCINES (ACWY) Completed 03/28/2007 [...] topic Medical Devices Not on file Insurance [facility] C3 ACO C3 ACO C3 ACO C3 ACO C3 ACO C3 ACO C3 ACO C3 ACO C3 ACO [employer] Care Teams Nanny Babysitter Relationship Specialty Start Date End Date Eva Barajas DO [address] [place] [phone] PCP - General Family Medicine 05/29/21 Additional Source Comments The information contained in this document represents components of the legal health record. It is not the complete legal health record.[facility]
--- OUTSIDE RECORDS SUMMARY | 2025-06-23 15:32 | XMS_ITS | Clinical Summary ---
Author Organization [employer] Address [address] [place] [address] 7 [place] [address] Care Team Providers Care Roll On Man Name Role Phone Eva Barajas Primary Care Provider + [phone] Allergies Active Allergy Reactions Criticality Noted Date [...] 60 tablet 3 05/26/20 25 026 Active baclofen (Lioresal) 10 MG tablet TAKE 1 TABLET (10 MG) BY MOUTH NEEDED IN THE MORNING , AT NOON, AND AT BEDTIME FOR MUSCLE SPASMS 60 tablet 1 06/04/20 Active phentermine 37.5 MG capsule Take 1 capsule (37.5 mg) by mouth before breakfast. 30 capsule 2 06/23/20 25 026 Active baclofen (Lioresal) 10 MG tablet Take 1 tablet (10 mg) by mouth if needed in the morning, at noon, and at bedtime for muscle spasms. 60 tablet 1 03/15/20 25 025 Discontinued phentermine 15 MG capsuleIndicat ions:Morbid obesity with BMI of 40.0-44.9, adult (CMS/HCC) (HCC) Take 1 capsule (15 mg) by mouth before breakfast. 30 capsule 05/11/20 25 025 Discontinued(Do se adjustment) phentermine 30 MG capsuleIndicat ions:Obesity (BMI 30-39.9) Take 1 capsule (30 mg) by mouth before breakfast. 30 capsule 2 05/26/20 25 025 Discontinued(Do se adjustment) Active Problems Problem Noted Date Diagnosed Date Chronic pain of both knees 05/24/2025 BMI 35.0-35.9,adult 05/27/2023 Chronic gastroesophageal reflux disease 06/04/20 12 [...] activities Sprain of left knee 02/17/2025 03/15/20 25 Assessment & Plan (02/17/2025 12:23 PM EDT): [...] Encounters Date Type Department Care Team Description 06/23/2025 9:30 AM EDT Office Visit [address] [address] Eva Barajas DO Routine history and physical examination of adult (Primary Dx); Chronic gastroesophageal reflux disease; Chronic pain of both knees; Inflamed external hemorrhoid; PCB (post coital bleeding); Obesity (BMI 30-39.9); Dietary counseling; Exercise counseling 06/16/2025 Patient Outreach [address] [address] Eva Barajas DO Pre-visit Planning (SDOH screening was completed on 03/15/2025) 06/15/[address] [address] Eva Barajas DO Chart Prep 06/08/2025 Orders Only [facility] External Provider, [facility] 06/04/[address] [address] Eva Barajas DO 05/26/2025 11:30 AM EDT Office Visit [address] [address] Eva Barajas DO Inflamed external hemorrhoid (Primary Dx); History of Helicobacter pylori infection; Obesity (BMI 30-39.9); Encounter for immunization 05/26/2025 Orders Only [address] [place] [address] Eva Barajas, 05/26/2025 Travel 05/25/2025 Travel 05/25/2025 Telephone [facility] [address] [place] [address] Eva Barajas DO Chart Prep 05/21/2025 Orders Only [address] [address] Eva Barajas DO 05/05/2025 Orders Only [facility] External Provider, [facility] 05/04/2025 Telephone [facility] [address] [place] [address] Eva Barajas, Lab Orders 05/02/2025 Refill [facility] [address] [place] [address] Eva Barajas DO 04/13/2025 Refill [facility] [place] [address] Eva Barajas DO Morbid obesity with BMI of 40.0-44.9, adult ([facility]) from Last 3 Months Immunizations Immunization Administration [...] your housing situation today? I have jewel david 06/17/[address] you li [...] Mass Index 35.28 06/23/2025 10:11 AM EDT Plan of Treatment Health Maintenance Due Date Last Done Comments Family Planning (PISQ) 2003 HPV Vaccines (3 - 3-dose series) 12/09/2007 09/16/2007, 03/28/2007 Pap Smear 2009 COVID-19 Vaccine ( season) 2025 Alcohol/Substance Use Screening 03/15/2026 03/15/2025 SDOH Screening 03/15/2026 03/15/2025 Disability Screening 05/25/2026 05/25/2025 Depression Screening 06/23/2026 06/23/2025, 06/23/20 25 Tobacco Screening 06/23/2026 06/23/2025 Cervical Cancer Screening 05/17/2027 HPV/Cotest 05/17/2027 05/17/2022, 05/17/2022 DTaP/Tdap/Td Vaccines (7 - Td or Tdap) 07/11/2029 07/11/2019, 11/05/2011, 05/05/1992, Additional history exists Lipid Panel 06/23/2030 06/23/2025, 06/04, 05/27/2023 Zoster Vaccines (1 of 2) 2038 RSV [...] Procedure Name Priority Date/Time Associated Diagnosis Comments BASIC METABOLIC PANEL Routine 06/23/2025 11:24 AM [...] PCB (post coital bleeding) Obesity (BMI 30-39.9) VITAMIN D,25-OH,TOTAL,IA Routine 06/23/2025 11:24 AM EDT [...] PCB (post coital bleeding) Obesity (BMI 30-39.9) MR KNEE WO CONTRAST RIGHT Routine 06/08/2025 6:06 PM EDT HELICOBACTER PYLORI, UREA BREATH TEST Routine 05/26/2025 [...] Recently Relevant to Health Maintenance Results * Vitamin D, 25-Hydroxy, Total, Immunoassay (06/23/2025 11:24 AM EDT) Vitamin D 25-OH Total 37.6 >30 ng/mL [facility] Comment: Health Based Reference Values*< 20 ng/mL Qiftaxjqz02-94 ng/mL Insufficient> 30 ng/mL Sufficient*Candido KEE. N [...] DO LAB BLOOD ORDERABLES Final R esult [facility] [address] [place] [phone] * CBC (06/23/2025 11:24 AM EDT) White Blood Count 8.6 4.8 - 10.8 X10*3/uL [facility] Red Blood Count 4.53 4.20 - 5.50 X10*6/uL [facility] Hemoglobin 13.3 12.0 - 16.0 g/dl [facility] Hematocrit 38.0 37.0 - 47.0 % [facility] Mean Corpuscular Volume 83.9 80.0 - 98.0 fL [facility] Mean Corpuscular Hemoglobin 29.4 27.0 - 33.0 pg [facility] Mean Corpuscular HGB Conc 35.0 31.0 - 35.0 g/dl [facility] Red Cell Distribution Width 13.0 11.0 - 16.0 % [facility] Platelet Count 377 160 - 400 X10*3/uL [facility] Mean Platelet Volume 10.9 9.4 - 12.3 fL [facility] NRBC Pct Auto 0.0 0.0 - 0.2 /100WBC [facility] NRBC Abs Auto 0.000 0.0 - 0.012 X10*3/uL [facility] Blood Venous blood specimen / Unknown 06/23/2025 11:24 AM EDT 06/23/2025 1:04 PM EDT us Eva Barajas DO LAB BLOOD ORDERABLES Final R esult [facility] [address] [place] [phone] [phone] * TSH (06/23/2025 11:24 AM EDT) Thyroid Stimulating Hormone 1.37 0.32 - 4.0 uIU/mL [facility] Comment:TSH 3rd Generation ( [facility]) Blood Venous blood specimen / Unknown 06/23/2025 11:24 AM EDT 06/23/2025 1:04 PM EDT Eva Barajas LAB BLOOD ORDERABLES Final R esult Performing Organization Address City/[facility] Co de Phone Number [facility] [address] [place] [phone] * T4, Free (06/23/2025 11:24 AM EDT) Free T4 (Free Thyroxine) 0.97 0.71 - 1.85 ng/dL [facility] Blood Venous blood specimen / Unknown 06/23/2025 11:24 AM EDT 06/23/2025 1:04 PM EDT Eva Barajas LAB BLOOD ORDERABLES Final R esult Performing Organization Address [facility] de Phone Number [facility] [address] [place] [phone] * Hemoglobin A1c (06/23/2025 11:24 AM EDT) Hemoglobin A1c 5.1 <6.0 % [facility] Comment:Hemoglobin A1C Refer ence Range Adults: 4.8 - 6.0 % Non diabetic: < 6.0 % Goal: < 7.0 %Additional Action Suggested: > 8.0 %Note: Hemoglobin A1c results are invalid for patients with abnormal amounts of HbF. Blood transfusions may impact the HbA1c concentration in the patient sample. Estimated Average Glucose 100 mg/dL [facility] Comment:eAG = Estimated ave rage glucose which is %A1C expressed asaverage glucose, using the formula of the S5K-SuinklxUvahifm Glucose study (ADAG), Diabetes Care, Vol.31,#8,2007 Blood Venous blood specimen / Unknown 06/23/2025 11:24 AM EDT 06/23/2025 1:04 PM EDT Eva Galindoalfonsovy DO LAB BLOOD ORDERABLES Final R esult Performing Organization Address City/[facility] Co de Phone Number [facility] [address] [place] [phone] * (ABNORMAL) Hepatic Function Panel (06/23/2025 11:24 AM EDT) Bilirubin, Total 1.8(H) 0.0 - 1.0 mg/dL [facility] Bilirubin, Direct 0.6(H) 0.0 - 0.5 mg/dL [facility] Aspartate Amino Transferase 23 5 - 31 U/L [facility] Alanine Aminotransferase 14 0 - 31 U/L [facility] Total Protein 7.9 6.5 - 8.0 g/dL [facility] Albumin Level 4.6 3.5 - 5.0 g/dL [facility] Alkaline Phosphatase 48 39 - 117 U/L [facility] Blood Venous blood specimen / Unknown 06/23/2025 11:24 AM EDT 06/23/2025 1:04 PM EDT Eva Karl DO LAB BLOOD ORDERABLES Final R esult Performing Organization Address City/[facility]/ZIP Co de Phone Number [facility] [address] [place] [phone] * (ABNORMAL) Lipid Panel, Standard (06/23/2025 11:24 AM EDT) Triglycerides 71 <150 mg/dL [facility] Comment:Desirable Triglyceri de: less than 150 mg/dLBorderline High Triglyceride 150-199 mg/dLHigh Triglyceride: 200-499 mg/dLVery High Triglyceride: greater than or equal to 5OO mg/dL Cholesterol 158 <200 mg/dL [facility] Comment:Desirable Cholestero l: less than 200 mg/dLBorderline High Cholesterol: 200-239 mg/dLHigh Cholesterol: greater than 239 mg/dL LDL Cholesterol Calculated 103(H) <100 mg/dL [facility] Comment:Desirable LDL: less than 100 mg/dLNear Optimal/Above Optimal LDL: 110- 129 mg/dLBorderline High LDL: 130-159 mg/dLHigh LDL: 160-189 mg/dLVery High LDL: greater than or equal to 190 mg/dL HDL Cholesterol 41 >40 mg/dL [facility] Comment:Desirable HDL: great er than 40 mg/dL Note: This HDL assay may give artificially low results in patients with liver disease. Blood Venous blood specimen / Unknown 06/23/2025 11:24 AM EDT 06/23/2025 1:04 PM EDT us Eva Barajas DO LAB BLOOD ORDERABLES Final R esult [facility] [address] [place] [phone] * (ABNORMAL) Basic Metabolic Panel (06/23/2025 11:24 AM EDT) Sodium 139 135 - 145 mmol/L [facility] Potassium 3.7 3.3 - 5.1 mmol/L [facility] Chloride 106 96 - 108 mmol/L [facility] Carbon Dioxide 26 22 - 29 mmol/L [facility] Anion Gap 11(L) 12 - 20 [facility] Urea Nitrogen (BUN) 12 9 - 16 mg/dL [facility] Creatinine, Serum 0.73 0.5 - 1.4 mg/dL [facility] Estimated Glomerular Filt Rate >60 [facility] Comment:Chronic Kidney Disea se: Estimated GFR < 60 mL/min/1.29p8Qgfyjg Kidney Disease: Estimated GFR < 15 mL/min/1.73m2 Glucose 93 60 - 115 mg/dL [facility] Calcium 9.6 8.4 - 10.2 mg/dL [facility] Blood Venous blood specimen / Unknown 06/23/2025 11:24 AM EDT 06/23/2025 1:04 PM EDT us Eva Barajas DO LAB BLOOD ORDERABLES Final R esult [facility] [address] [place] [phone] * MR Knee w/o Contrast Right (06/08/2025 6:06 PM EDT) Anatomical Region Laterality Modality Magnetic Resonan ce 06/08/2025 6:06 PM EDT Narrative 06/09/2025 10:26 AM EDT [address] [address] Magnetic Resonance Report Signed Patient: Violeta Dong MR#: [id number] 81 : 1990 Acct:[id number] Age/Sex: 34 / F ADM Date: 06/08/25 Loc: HO.MRI Attending Dr: Renae Stone PA-C Ordering Physician: Renae Stone PA-C Date of Service: 06/08/25 Procedure(s): MR knee RT wo con Accession Number(s): [id number] cc: Catrachito Chang MD; Renae Stone PA-C Reason for Exam: M17.11 - Unilateral primary osteoarthritis, right knee EXAMINATION: MR KNEE WITHOUT CONTRAST, RIGHT CLINICAL INFORMATION: Primary osteoarthritis . Patient reports prior ligament repair. COMPARISON: None available. TECHNIQUE: MRI of the knee without contrast was performed using routine sequences on a high-field scanner. FINDINGS: MENISCI: Medial Meniscus: Irregular superior surface tear in the posterior horn. Mild medial extrusion of the body, with degenerative signal. Small focus of susceptibility artifact posteriorly. Lateral Meniscus: Intact LIGAMENTS: Cruciate: Intact Collateral: MCL is intact. Biceps femoris, iliotibial band are intact. There is mild edema in the interface between the iliotibial band and the lateral femoral condyle, which could represent sequela of iliotibial band friction syndrome in the appropriate clinical circumstance. EXTENSOR MECHANISM: Multiple foci of susceptibility artifact associated with the extensor mechanism, including in the region of the distal quadriceps tendon, the patella , from prior surgery. Mild T2 signal in the distal quadriceps could reflect mild tendinosis or postsurgical changes. Correlate with surgical history.. No measurable tear is seen. Patellar tendon is intact. ARTICULAR CARTILAGE/BONE: Patellofemoral Compartment: Foci of susceptibility artifact along the medial trochlea. Mild chondromalacia present, suggesting minimal degeneration. Medial Compartment: Mild-moderate arthritis. There is nonuniform chondral thinning in the weightbearing compartment, subchondral tibial and femoral cyst/edema... Lateral Compartment: Tiny marginal osteophytes. No fracture. JOINT FLUID AND BURSAE: Small joint fluid. Trace Iglesias's cyst. Subcutaneous edema. MR/MR knee RT wo con IMPRESSION: * Tear of the medial meniscal posterior horn. * Edema signal in between the iliotibial band and the lateral femoral condyle, could represent sequela of iliotibial band friction syndrome in the appropriate clinical circumstance. * Foci of susceptibility artifact in the region of the extensor mechanism. Mild heterogeneous signal in the distal quadriceps tendon could reflect postsurgical changes, tendinosis. No measurable tear is seen. * Mild-moderate medial compartment arthritis. Minimal patellofemoral and lateral compartment degeneration. Electronically signed by: Moshe Colmenares MD 06/09/2025 10:23 AM EDT Dictated By: Moshe Colmenares MD Signed By: <Electronically signed by Moshe Colmenares MD in OV> 06/09/25 1023 DD/ 1806 TD/TT: 06/08/25 1818 Research Program Internship: ANA Procedure Note Donotuseinterpreter, Image - 06/09/2025 [place] [address] Magnetic Resonance Report Signed Patient: Violeta Dong [facility]#: [id number] [birth year] : 1990Acct:[id number] Age/Sex: 34 / FADM Date: 06/08/25 Loc: HO.MRI Attending Dr: Renae Stone PA-C Ordering Physician: Renae Stone PA-C Date of Service: 06/08/25 Procedure(s): MR knee RT wo con Accession Number(s): [id number] cc: Catrachito Chang MD; Renae Stone PA-C Reason for Exam: M17.11 - Unilateral primary osteoarthritis, right knee EXAMINATION: MR KNEE WITHOUT CONTRAST, RIGHT CLINICAL INFORMATION: Primary osteoarthritis . Patient reports prior ligament repair. COMPARISON: None available. TECHNIQUE: MRI of the knee without contrast was performed using routine sequences on a high-field scanner. FINDINGS: MENISCI: Medial Meniscus: Irregular superior surface tear in the posterior horn. Mild medial extrusion of the body, with degenerative signal. Small focus of susceptibility artifact posteriorly. Lateral Meniscus: Intact LIGAMENTS: Cruciate: Intact Collateral: MCL is intact. Biceps femoris, iliotibial band are intact. There is mild edema in the interface between the iliotibial band and the lateral femoral condyle, which could represent sequela of iliotibial band friction syndrome in the appropriate clinical circumstance. EXTENSOR MECHANISM: Multiple foci of susceptibility artifact associated with the extensor mechanism, including in the region of the distal quadriceps tendon, the patella , from prior surgery. Mild T2 signal in the distal quadriceps could reflect mild tendinosis or postsurgical changes. Correlate with surgical history.. No measurable tear is seen. Patellar tendon is intact. ARTICULAR CARTILAGE/BONE: Patellofemoral Compartment: Foci of susceptibility artifact along the medial trochlea. Mild chondromalacia present, suggesting minimal degeneration. Medial Compartment: Mild-moderate arthritis. There is nonuniform chondral thinning in the weightbearing compartment, subchondral tibial and femoral cyst/edema... Lateral Compartment: Tiny marginal osteophytes. No fracture. JOINT FLUID AND BURSAE: Small joint fluid. Trace Iglesias's cyst. Subcutaneous edema. MR/MR knee RT wo con IMPRESSION: * Tear of the medial meniscal posterior horn. * Edema signal in between the iliotibial band and the lateral femoral condyle, could represent sequela of iliotibial band friction syndrome in the appropriate clinical circumstance. * Foci of susceptibility artifact in the region of the extensor mechanism. Mild heterogeneous signal in the distal quadriceps tendon could reflect postsurgical changes, tendinosis. No measurable tear is seen. * Mild-moderate medial compartment arthritis. Minimal patellofemoral and lateral compartment degeneration. Electronically signed by: Moshe Colmenares MD 06/09/2025 10:23 AM EDT Dictated By: Moshe Colmenares MD Signed By: <Electronically signed by Moshe Colmenares MD in OV> 06/09/25 1023 DD/ 05 TD/TT: 06/08/25 1818 Research Program Internship: ANA [facility] External Provider IMG MRI PROCEDURES Final Result * Helicobacter pylori, Urea Breath Test (05/26/2025 12:30 PM EDT) H. pylori Breath Test Negative Negative [facility] Comment:Antimicrobials, prot on pump inhibitors and bismuthpreparations are known to suppress H. pylori. Ingestingthese medications within two weeks prior to performing thebreath test may produce negative test results. A positiveresult is still clinically valid. 05/26/2025 12:3 0 PM EDT 05/26/2025 4:00 PM EDT Eva Barajas DO LAB BODY FLUIDS AND STOOLS O RDERABLES Final Result [facility] [address] [place] [phone] * QuantiFERON??-TB Gold Plus, 1 Tube (05/21/2025 9:42 AM EDT) Quantiferon -TB Gold Plus, 1 Tube NEGATIVE NEGATIVE [facility] Comment: Negative test result. M. tuberculosis complex infection unlikely. NIL 0.02 IU/mL [facility] MITOGEN-NIL 6.99 IU/mL [facility] TB1-NIL <0.00 IU/mL [facility] TB2-NIL <0.00 IU/mL [facility] Comment: The Nil tube value reflects [...] T-lymphocytes. For additional information, please refer to https://education.BRANDiD - Shop. Like a Man./faq/AOL724 (This link is being provided for informational/ educational purposes only.) Your request to have a duplicate copy faxed has been acknowledged. Queued to: [id number] 05/21/2025 9:42 AM EDT 05/21/2025 9:43 AM EDT Narrative [facility] - 05/25/2025 12:32 PM EDT FASTING:NO AN UPDATE OR CORRECTION HAS BEEN MADE TO NAME FASTING: NO Eva Barajas DO LAB BLOOD ORDERABLES Final R esult [facility] [address], [place] [address] [facility] [address] [place] [address] * Bacterial Vaginosis (05/20/2025 9:27 AM EDT) TRICHOMONAS VAGINALIS DETECTION BY PCR NOT DETECTED Not Detect [facility] BACTERIAL VAGINOSIS DETECTION BY PCR NEGATIVE Negative [facility] Comment:The BV organism targ ets [...] DETECTION BY PCR NOT DETECTED Not Detect [facility] Pippa glab krusei PCR NOT DETECTED Not Detect [facility] 05/20/2025 9:27 AM EDT 05/20/2025 5:14 PM EDT us Generic External Data Provider LAB MICROBIOLOGY - GENERAL ORDERABLES Final Result [facility] [address] [place] [phone] * Chlamydia/N. Gonorrhoeae RNA, TMA, Urogenitial (05/20/2025 9:27 AM EDT) CT PCR NOT DETECTED Not Detect. [facility] Comment:A not detected test result [...] psychologicalconsequences. NG PCR NOT DETECTED Not Detect. [facility] Comment:A not detected test result [...] LAB MICROBIOLOGY - GENERAL ORDERABLES Final Result [facility] [address] [place] [phone] * MR Knee w/o Contrast Left (05/05/2025 3:27 PM EDT) Anatomical Region Laterality Modality Magnetic Resonan ce 05/05/2025 3:27 PM EDT Narrative 05/05/2025 5:18 PM EDT [address] [address] Magnetic Resonance Report Signed Patient: Violeta Dong MR#: [id number] 81 : 1990 Acct:[id number] Age/Sex: 34 / F ADM Date: 05/05/25 Loc: HO.MRI Attending Dr: Renae Stone PA-C Ordering Physician: Renae Stone PA-C Date of Service: 05/05/25 Procedure(s): MR knee LT wo con Accession Number(s): [id number] cc: Eva Barajas Ta-Mara PA-C Reason for [...] 05/05/25 1715 DD/ 1527 TD/TT: 05/05/25 1642 Research Program Internship: Procedure Note Donotuseinterpreter, Image - 05/05/2025 [place] [address] Magnetic Resonance Report Signed Patient: Violeta Dong MMR#: [id number] [birth year] : 1990Acct:[id number] Age/Sex: 34 / FADM Date: 05/05/25 Loc: HO.MRI Attending Dr: Renae Stone PA-C Ordering Physician: Renae Stone PA-C Date of Service: 05/05/25 Procedure(s): MR knee LT wo con Accession Number(s): [id number] cc: vEa Barajas Ta-Mara PA-C Reason for Exam: M17.12 [...] 05/05/25 1715 DD/ 1527 TD/TT: 05/05/25 1642 Research Program Internship: [facility] External Provider IMG MRI PROCEDURES Final Result * Hepatitis C Antibody with Reflex to HCV, RNA, Quantitative, Real-Time PCR (07/01/2024 11:29 AM EDT) Hepatitis C Antibody Nonreactive Nonreactive [facility] Comment:Antibodies to HCV no t detected; does not exclude early acuteHCV infection. Blood Venous blood specimen / Unknown 07/01/2024 11:29 AM EDT 07/01/2024 1:07 PM EDT Eva Barajas DO LAB BLOOD ORDERABLES Final R esult Performing Organization Address [facility] Co de Phone Number [facility] [address] [place] [phone] * HIV-1/2 Antigen and Antibodies, Fourth Generation, with Reflexes (07/01/2024 11:29 AM EDT) Pathologist [facility] HIV AB/AG Nonreactive Nonreactive [facility] Comment:HIV-1 p24 Ag and/or HIV-1/HIV-2 Ab not detected.A test result that is nonreactive does not exclude thepossibility of exposure to or infection with HIV-1 and/orHIV-2. Nonreactive results in this assay for individualswith prior exposure to HIV-1 and/or HIV-2 may be due toantigen and antibody levels that are below the limit ofdetection of this assay.The [employer] HIV Ag/Ab Combo assay result andsupplemental assay results should be interpreted inconjunction with the patient's clinical presentation,history and other laboratory results. If the results areinconsistent with clinical evidence, additional testing issuggested to confirm the result. Blood Venous blood specimen / Unknown 07/01/2024 11:29 AM EDT 07/01/2024 1:07 PM EDT Eva Barajas DO LAB BLOOD ORDERABLES Final R esult Performing Organization Address City/[facility]/ZIP Co de Phone Number [facility] [address] [place] [phone] * HPV E6/E7 RFLX KEKE 16 18/45 (05/17/2022 11:56 AM EDT) Pathologist [facility] HPV mRNA E6/E7 rflx Not Detected Not Detected [facility] Comment: Methodology: Networking Technician-Mediated Amplification This assay detects E6/E7 viral messenger RNA (mRNA) from 14 high-risk HPV types (16,18,31,33,35,39,45,51,52,56,58,59,66,68). Cervical sources are required for HPV testing. If a vaginal source from a patient who has had a total hysterectomy with removal of cervix was submitted, please contact the testing laboratory for alternative testing options. For additional information, please refer to http://education.BRANDiD - Shop. Like a Man./faq/XQF822h3 (This link if provided for information/ educational purposes only.) THIS TEST WAS PERFORMED AT: [facility] [address] [place] [address] [address],[place] [address] LORRAINE DAVIS MD 05/17/2022 11:5 6 AM EDT us Tamia Rosario HISTORICAL/NON ORDERABLE LABS Fi nal Result [facility] [facility] [address] from Last 3 Months or Most Recently Relevant to Health Maintenance Insurance [facility] C3 Care Teams Roll On Man Relationship Specialty Start Date End Date Eva Barajas DO [address] [place] [id number] PCP - General Family Medicine 09/02/18
[2025-06-24 04:08] LABS: HIV Num 1 0.06 S/CO (0.00-0.99); ~HepC Num1 0.19 S/CO (0.00-0.79); ~Hepatitis C Antibody Nonreactive (Nonreactive)
== END 2025-06-23 11:21 | disposition home or self-care (01) ==
LOC: HO.HHCL 11:20
PROVIDERS: PCP Family Medicine; Visit Provider Family Medicine
DX: S83.207A Unspecified tear of unspecified meniscus, current injury, left knee, initial encounter (principal); S83.206A Unspecified tear of unspecified meniscus, current injury, right knee, initial encounter; Z00.00 Encounter for general adult medical examination without abnormal findings; K21.9 Gastro-esophageal reflux disease without esophagitis; G89.29 Other chronic pain; K64.4 Residual hemorrhoidal skin tags; N93.0 Postcoital and contact bleeding; E66.9 Obesity, unspecified; Z11.3 Encounter for screening for infections with a predominantly sexual mode of transmission; Z11.4 Encounter for screening for human immunodeficiency virus [HIV]; Z11.59 Encounter for screening for other viral diseases; Z79.899 Other long term (current) drug therapy; X58.XXXA Exposure to other specified factors, initial encounter
CPT/HCPCS: 36415; 80048; 80061; 80076; 82306; 83036; 84439; 84443; 85027; 86592; 86803; 87389; 99212

== ENCOUNTER 2025-06-23 13:20 | Outpatient (AMB) | payer MEDICAID, SELFPAY ==
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
== END 2025-06-23 13:48 | disposition home or self-care (01) ==
LOC: HO.HOS 13:20
PROVIDERS: PCP Family Medicine; Visit Provider Physician Assistant
DX: S83.207A Unspecified tear of unspecified meniscus, current injury, left knee, initial encounter (principal); S83.206A Unspecified tear of unspecified meniscus, current injury, right knee, initial encounter
CPT/HCPCS: 99214

== ENCOUNTER 2025-06-24 13:09 | Outpatient (RCR) | payer MEDICAID, SELFPAY ==
--- NOTE | 2025-05-26 15:37 | MHC.PT.EP ---
[facility] [place] [facility] [place] [facility] [address] Geremias Galvan [address] [phone] F: [phone] F: [phone] F: [phone] F: [phone] Physical Therapy Plan of Care Date of Evaluation: 05/26/25 Date of Surgery: Diagnosis: Chondromalacia patella L knee. Assessment: Pt is a 34 y/o female with PMHx of H/O shoulder surgery, hip surgery, right knee surgery who is referred to PT for eval and treat of L knee chondromalacia patellae which is resulting in decreased tolerance for walking longer distances, standing for duration, engaging in fitness activities as well as heavy HH chores secondary to decreased B knee and hip strength, L knee mild hyper extension, TTP of medial L joint line, evidence of medial meniscus on imaging, and pain. Pt is deemed an appropriate candidate to receive skilled PT services to address their physical impairments in order to improve their functional ability. Frequency and Duration: The patient will be seen 2 x/ wk x 4 wks. Short Term Goals: initiate home program Improve baseline pain to 4/10; initial 5/10. Prison Goals: I with home program. Pt will improve LEFI outcome measure by at least 9 points. Pt will improve L knee extension strength by at least 1 MMT grade. Pt will be able to walk 1 mile with at most a little bit of difficulty; initial; 2 blocks. Treatment Plan: Modalities to reduce pain, spasms and effusion. Manual therapy to restore motion and function. Therapeutic exercise to improve strength and flexibility. Neuromuscular re-education for posture and balance. Therapeutic activities to return to functional activities of daily living. Electronically signed by: Bandar Munoz PT. Please sign and return to therapist. Thank you for your referral.
== END 2025-08-23 10:48 | disposition home or self-care (01) ==
LOC: HO.PT 13:09
PROVIDERS: PCP Internal Medicine; Visit Provider Physician Assistant
DX: M22.42 Chondromalacia patellae, left knee (principal)
CPT/HCPCS: 97110; 97161; 97530

== ENCOUNTER 2025-07-01 13:36 | Outpatient (AMB) | payer MEDICAID, SELFPAY ==
[2025-07-01 13:51] VITALS: BP 116/64; BMI 34.9
--- NOTE | 2025-07-01 13:51 | MHC.OFFVIS ---
Vital Signs 07/01/25 13:51 Height 5 ft 5 in Weight 210 lb BMI 34.9 BP 116/64 Blood Pressure Location Lt brachial Position Sitting Intake Visit Reasons: Hysteroscopy consult Knot Picker Cloth Required: No Allergies polyethylene glycol 3350 (From Miralax) Allergy (Mild, Verified 07/01/25 13:54) Hives Medication List - Last Reconciled 07/01/25 by Ann Marie Olvera LPN acetaminophen ER 650 mg PO Q8H PRN baclofen 10 mg PO TID PRN diclofenac sodium 1% 2 grams topical DAILY PRN naproxen 500 mg PO phentermine 15 mg PO QAM Is last menstrual period known: Yes Last menstrual period: 06/17/25 Post menopausal: No Patient : No HPI Comments Details: Presenting referred from Tamia Rosario regarding abnormal uterine bleeding and post coital bleeding. The following workup was done 12/24 Co testing negative 01/23 EMB/ECC pathology showed the following: A. Endometrium, biopsy: Early secretory endometrium; negative for atypia or hyperplasia. B. Endocervix, curettage: - Few superficial fragments of endocervical and squamous epithelium within normal limits. - Small fragment of benign endometrium. - No atypia identified 05/27 GC/CT negative 12/24 pelvic ultrasound showed the following: The uterus is anteverted and measures 11.2 x 3.7 x 0.4 cm. No discrete fibroids are appreciated. Nabothian cysts in the cervix. Double wall endometrial thickness is 10 mm. Limited visualization of uterine fundus. Endometrium appears heterogeneous. Limited visualization due to bowel gas and uterine positioning. No significant free fluid appreciated. Right ovary measures 3.1 x 1.4 x 2.0 cm, volume 4.5 mL. Left ovary measures 2.8 x 1.2 x 1.6 cm, volume 2.8 mL. Bilateral ovaries are grossly unremarkable; however, visualization is substantially limited. 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 All pros, cons, risks and benefits if each option was discussed with the patient and the patient decided to go ahead with Mirena IUD so a more detailed discussion about it was conducted including mechanism of action, risks (uterine perforation, infection, injury to bladder, bowel, displacement, and others) benefits (hypo menorrhea, amenorrhea, ...). GC/CT were taken and the patient was instructed to schedule Mirena IUD insertion on day 1-5 of next cycle . All questions answered, the patient verbalized understanding Coding Level of Care Code Est Pt Level 3 (75908) Diagnoses Abnormal uterine bleeding (AUB) N93.9
--- OUTSIDE RECORDS SUMMARY | 2025-07-01 16:36 | XMS_ITS | Encounter Summary ---
Author Organization [employer] Address [address] [place] [address] [address] [place] [address] Care Team Providers Care Admitting Clerk Name Role Phone Eva Barajas DO Primary Care Provider + [phone] Encounter Details Date Type Department Care Team (Late Contact Info) Description 05/02/2023 Telephone [facility] [address] [place] [address] Eva Barajas DO [address] [place], [place] [phone] Social History Tobacco Use Types Packs/Day Years [...] - 05/02/2023 9:49 AM EDT Discard task. 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 documented in this encounter Plan of Treatment Upcoming Encounters Date Type Department Care Team (Late st Contact Info) Description 07/12/2025 9:15 AM EST Office Visit [facility] MEDIC[facility] [address] [place] [address] Eva Barajas DO [address] [place] [address] documented as of this encounter Visit Diagnoses Not on filedocumented in this encounter Care Teams Admitting Clerk Relationship Specialty Start Date End Date Eva Barajas DO [address] [place] [address] PCP - General Family Medicine 09/02/18 documented as of this encounter
--- OUTSIDE RECORDS SUMMARY | 2025-07-01 16:36 | XMS_ITS | Clinical Summary ---
Author Organization [facility] Address [address] [place] [phone] Phone Care Team Providers Care Tenon Machine Operator Name Role Phone oJsieEva laughlin Primary Care Provider [phone] Allergies Active Allergy Reactions Criticality Noted Date [...] topic Medical Devices Not on file Insurance [facility] C3 ACO C3 ACO C3 ACO C3 ACO C3 ACO C3 ACO C3 ACO C3 ACO C3 ACO [facility] Care Teams Tenon Machine Operator Relationship Specialty Start Date End Date Eva Barajas DO [address] [place] [id number] PCP - General Family Medicine 05/29/21 Additional Source Comments The information contained in this document represents components of the legal health record. It is not the complete legal health record.[facility]
--- OUTSIDE RECORDS SUMMARY | 2025-07-01 16:36 | XMS_ITS | Clinical Summary ---
Author Organization [facility] Address [address] [place] [address] 7 [place] [address] Care Team Providers Care Supervisor Doping Name Role Phone Eva Barajas Primary Care Provider + [phone] Allergies Active Allergy Reactions Criticality Noted Date [...] SPASMS 60 tablet 1 06/04/20 25 Active phentermine 37.5 MG capsule Take 1 capsule (37.5 mg) by mouth before breakfast. 30 capsule 2 06/23/20 25 026 Active baclofen (Lioresal) 10 MG tablet Take 1 tablet (10 mg) by mouth if needed in the morning, at noon, and at bedtime for muscle spasms. 60 tablet 1 03/15/20 25 025 Discontinued phentermine 30 MG capsuleIndicat ions:Obesity (BMI 30-39.9) [...] Encounters Date Type Department Care Team Description 06/24/[address] [address] Eva Barajas DO preop 06/23/2025 9:30 AM EDT Office Visit [address] [address] Eva Barajas DO Routine history and physical examination of adult (Primary Dx); Chronic gastroesophageal reflux disease; Chronic pain of both knees; Inflamed external hemorrhoid; PCB (post coital bleeding); Obesity (BMI 30-39.9); Dietary counseling; Exercise counseling 06/23/[address] [address] Eva Barajas DO 06/16/2025 Patient Outreach [address] [address] Eva Barajas DO Pre-visit Planning (SDOH screening was completed on 03/15/2025) 06/15/[address] [address] Eva Barajas DO Chart Prep 06/08/2025 Orders Only [facility] External Provider, [facility] 06/04/[address] [address] Eva Barajas DO 05/26/2025 11:30 AM EDT Office Visit [address] [address] Eva Barajas DO Inflamed external hemorrhoid (Primary Dx); History of Helicobacter pylori infection; Obesity (BMI 30-39.9); Encounter for immunization 05/26/2025 Orders Only [facility] MED[facility]INE [address] [place] [address] Eva Barajas, 05/26/2025 Travel 05/25/2025 Travel 05/25/2025 Telephone [facility] MEDICINE [address] [facility] [place] [place] [address] Eva Barajas DO Chart Prep 05/21/2025 Orders Only [facility] MEDICINE [address] [place] [address] Eva Barajas DO 05/05/2025 Orders Only [facility] External Provider, [facility] 05/04/2025 Telephone [facility] MEDICINE [address] [place] [address] Eva Barajas DO Lab Orders 05/02/2025 Refill [facility] MEDICINE [address] [place] [address] Eva Barajas DO 04/13/2025 Refill [facility] MED[facility]INE [address] [place] [address] Eva Barajas DO Morbid obesity with BMI of 40.0-44.9, adult ([facility]) from Last 3 Months Immunizations Immunization Administration [...] 06/23/2025 10:11 AM EDT Plan of Treatment Upcoming Encounters Date Type Department Care Team (Late st Contact Info) Description 07/12/2025 9:15 AM EST Office Visit [facility] MEDICINE [address] [place] [address] Eva Barajas DO [address] [place] [address] Health Maintenance Due Date Last Done Comments Family Planning (PISQ) 2003 HPV Vaccines (3 - 3-dose series) 12/09/2007 09/16/2007, 03/28/2007 Pap Smear 2009 COVID-19 Vaccine ( season) 2025 Alcohol/Substance Use Screening 03/15/2026 03/15/2025 SDOH Screening 03/15/2026 03/15/2025 Disability Screening 05/25/2026 05/25/2025 Depression Screening 06/23/2026 06/23/2025, 06/23/20 Tobacco Screening 06/23/2026 06/23/2025 Cervical Cancer Screening [...] 11/15/2011, Additional history exists Influenza Vaccine Completed 05/26/2025, , 05/27/2023, Additional history exists HIV Screening Completed 06/23/2025, 07/01/2024 Hepatitis C Screening Completed 06/23/2025, 024 HIB Vaccines Aged Out No longer eligi [...] Procedure Name Priority Date/Time Associated Diagnosis Comments RPR (MONITOR) W/REFL TITER Routine 06/23/2025 11:24 AM EDT Routine history and physical examination of adult Chronic gastroesophageal reflux disease Chronic pain of both knees Inflamed external hemorrhoid PCB (post coital bleeding) Obesity (BMI 30-39.9) HEPATITIS C AB W/REFL TO HCV RNA, QN, PCR Routine 06/23/2025 11:24 AM EDT Routine history and physical examination of adult Chronic gastroesophageal reflux disease Chronic pain of both knees Inflamed external hemorrhoid PCB (post coital bleeding) Obesity (BMI 30-39.9) HIV 1/2 ANTIGEN/ANTIBODY, FOURTH GENERATION W/RFL Routine 06/23/2025 11:24 AM EDT Routine history [...] CONTRAST LEFT Routine 05/05/2025 3:27 PM EDT ZZZ HISTORICAL HPV E6/E7 RFLX KEKE 16 18/45 Routine 05/17/2022 11:56 AM EDT from Last 3 Months or Most Recently Relevant to Health Maintenance Results * Vitamin D, 25-Hydroxy, Total, Immunoassay (06/23/2025 11:24 AM EDT) Vitamin D 25-OH Total 37.6 >30 ng/mL [facility] Comment: Health Based Reference Values*< 20 ng/mL Fealyuzel00-08 ng/mL Insufficient> 30 ng/mL Sufficient*Candido KEE. N [...] ORDERABLES Final R esult Performing Organization Address [facility] Co de Phone Number [facility] [address] [place] [phone] * Hepatitis C Antibody with Reflex to HCV, RNA, Quantitative, Real-Time PCR (06/23/2025 11:24 AM EDT) Hepatitis C Antibody Nonreactive Nonreactive [facility] Comment:Antibodies to HCV no t detected; does not exclude early acuteHCV infection. Blood Venous blood specimen / Unknown 06/23/2025 11:24 AM EDT 06/23/2025 1:04 PM EDT Eva Barajas DO LAB BLOOD ORDERABLES Final R esult Performing Organization Address [facility] Co de Phone Number [facility] [address] [place] [phone] * RPR (Monitor) with Reflex to??Titer (06/23/2025 11:24 AM EDT) RPR (Monitor) w/Refl Titer NON-REACTI VE NON-REACT MICHOACANO [facility] Comment:THIS TEST WAS PERFOR MED AT:[facility] [place] [phone] DAVIS MD Rapid Plasma Reagin Ab Titer TNP [facility] Blood Venous blood specimen / Unknown 06/23/2025 11:24 AM EDT 06/23/2025 1:04 PM EDT us Eva Barajas DO LAB BLOOD ORDERABLES Final R esult [facility] [address] [place] [phone] * HIV-1/2 Antigen and Antibodies, Fourth Generation, with Reflexes (06/23/2025 11:24 AM EDT) Pathologist [facility] HIV AB/AG Nonreactive Nonreactive [facility] Comment:HIV-1 p24 Ag and/or HIV-1/HIV-2 Ab not detected.A test result that is nonreactive does not exclude thepossibility of exposure to or infection with HIV-1 and/orHIV-2. Nonreactive results in this assay for individualswith prior exposure to HIV-1 and/or HIV-2 may be due toantigen and antibody levels that are below the limit ofdetection of this assay.The RiffRaff HIV Ag/Ab Combo assay result andsupplemental assay results should be interpreted inconjunction with the patient's clinical presentation,history and other laboratory results. If the results areinconsistent with clinical evidence, additional testing issuggested to confirm the result. Blood Venous blood specimen / Unknown 06/23/2025 11:24 AM EDT 06/23/2025 1:04 PM EDT us Eva Karl DO LAB BLOOD ORDERABLES Final R esult [facility] [address] [place] [phone] * CBC (06/23/2025 11:24 AM EDT) White Blood Count 8.6 4.8 - 10.8 X10*3/uL [facility] Red Blood Count 4.53 4.20 - 5.50 X10*6/uL [facility] Hemoglobin 13.3 12.0 - 16.0 g/dl [facility] Hematocrit 38.0 37.0 - 47.0 % [facility] Mean Corpuscular Volume 83.9 80.0 - 98.0 fL [facility] Mean Corpuscular Hemoglobin 29.4 27.0 - 33.0 pg [facility] Mean Corpuscular HGB Conc 35.0 31.0 - 35.0 g/dl [facility] Red Cell Distribution Width 13.0 11.0 - 16.0 % [facility] Platelet Count 377 160 - 400 X10*3/uL [facility] Mean Platelet Volume 10.9 9.4 - 12.3 fL [facility] NRBC Pct Auto 0.0 0.0 - 0.2 /100WBC [facility] NRBC Abs Auto 0.000 0.0 - 0.012 X10*3/uL [facility] Blood Venous blood specimen / Unknown 06/23/2025 11:24 AM EDT 06/23/2025 1:04 PM EDT us Eva Barajas DO LAB BLOOD ORDERABLES Final R esult [facility] [address] [place] [phone] * TSH (06/23/2025 11:24 AM EDT) Thyroid Stimulating Hormone 1.37 0.32 - 4.0 uIU/mL [facility] Comment:TSH 3rd Generation ( [facility]) Blood Venous blood specimen / Unknown 06/23/2025 11:24 AM EDT 06/23/2025 1:04 PM EDT Eva Karl DO LAB BLOOD ORDERABLES Final R esult Performing Organization Address City/[facility] Co de Phone Number [facility] [address] [place] [phone] * T4, Free (06/23/2025 11:24 AM EDT) Free T4 (Free Thyroxine) 0.97 0.71 - 1.85 ng/dL [facility] Blood Venous blood specimen / Unknown 06/23/2025 11:24 AM EDT 06/23/2025 1:04 PM EDT Eva Karl LAB BLOOD ORDERABLES Final R esult Performing Organization Address [facility] de Phone Number [facility] [address] [place] [phone] * Hemoglobin A1c (06/23/2025 11:24 AM EDT) Hemoglobin A1c 5.1 <6.0 % [facility] Comment:Hemoglobin A1C Refer ence Range Adults: 4.8 - 6.0 % Non diabetic: < 6.0 % Goal: < 7.0 %Additional Action Suggested: > 8.0 %Note: Hemoglobin A1c results are invalid for patients with abnormal amounts of HbF. Blood transfusions may impact the HbA1c concentration in the patient sample. Estimated Average Glucose 100 mg/dL [facility] Comment:eAG = Estimated ave rage glucose which is %A1C expressed asaverage glucose, using the formula of the L6V-UttdjabXglrexf Glucose study (ADAG), Diabetes Care, Vol.31,#8,Apr. 2007 Blood Venous blood specimen / Unknown 06/23/2025 11:24 AM EDT 06/23/2025 1:04 PM EDT Eva Karl DO LAB BLOOD ORDERABLES Final R esult Performing Organization Address City/[facility] Co de Phone Number [facility] [address] [place] [phone] * (ABNORMAL) Hepatic Function Panel (06/23/2025 11:24 AM EDT) Bilirubin, Total 1.8(H) 0.0 - 1.0 mg/dL [facility] Bilirubin, Direct 0.6(H) 0.0 - 0.5 mg/dL [facility] Aspartate Amino Transferase 23 5 - 31 U/L [facility] Alanine Aminotransferase 14 0 - 31 U/L [facility] Total Protein 7.9 6.5 - 8.0 g/dL [facility] Albumin Level 4.6 3.5 - 5.0 g/dL [facility] Alkaline Phosphatase 48 39 - 117 U/L [facility] Blood Venous blood specimen / Unknown 06/23/2025 11:24 AM EDT 06/23/2025 1:04 PM EDT us Eva Barajas DO LAB BLOOD ORDERABLES Final R esult Performing Organization Address [facility] de Phone Number [facility] [address] [place] [phone] * (ABNORMAL) Lipid Panel, Standard (06/23/2025 11:24 AM EDT) Triglycerides 71 <150 mg/dL [facility] Comment:Desirable Triglyceri de: less than 150 mg/dLBorderline High Triglyceride 150-199 mg/dLHigh Triglyceride: 200-499 mg/dLVery High Triglyceride: greater than or equal to 5OO mg/dL Cholesterol 158 <200 mg/dL [facility] Comment:Desirable Cholestero l: less than 200 mg/dLBorderline High Cholesterol: 200-239 mg/dLHigh Cholesterol: greater than 239 mg/dL LDL Cholesterol Calculated 103(H) <100 mg/dL [facility] Comment:Desirable LDL: less than 100 mg/dLNear Optimal/Above Optimal LDL: 110- 129 mg/dLBorderline High LDL: 130-159 mg/dLHigh LDL: 160-189 mg/dLVery High LDL: greater than or equal to 190 mg/dL HDL Cholesterol 41 >40 mg/dL [facility] Comment:Desirable HDL: great er than 40 mg/dL Note: This HDL assay may give artificially low results in patients with liver disease. Blood Venous blood specimen / Unknown 06/23/2025 11:24 AM EDT 06/23/2025 1:04 PM EDT us Eva Barajas DO LAB BLOOD ORDERABLES Final R esult [facility] [address] [place] [phone] * (ABNORMAL) Basic Metabolic Panel (06/23/2025 11:24 AM EDT) Sodium 139 135 - 145 mmol/L [facility] Potassium 3.7 3.3 - 5.1 mmol/L [facility] Chloride 106 96 - 108 mmol/L [facility] Carbon Dioxide 26 22 - 29 mmol/L [facility] Anion Gap 11(L) 12 - 20 [facility] Urea Nitrogen (BUN) 12 9 - 16 mg/dL [facility] Creatinine, Serum 0.73 0.5 - 1.4 mg/dL [facility] Estimated Glomerular Filt Rate >60 [facility] Comment:Chronic Kidney Disea se: Estimated GFR < 60 mL/min/1.89g0Bwsrfx Kidney Disease: Estimated GFR < 15 mL/min/1.73m2 Glucose 93 60 - 115 mg/dL [facility] Calcium 9.6 8.4 - 10.2 mg/dL [facility] Blood Venous blood specimen / Unknown 06/23/2025 11:24 AM EDT 06/23/2025 1:04 PM EDT us Eva Barajas DO LAB BLOOD ORDERABLES Final R esult [facility] [address] [place] [phone] * MR Knee w/o Contrast Right (06/08/2025 6:06 PM EDT) Anatomical Region Laterality Modality Magnetic Resonan ce 06/08/2025 6:06 PM EDT Narrative 06/09/2025 10:26 AM EDT [address] [address] Magnetic Resonance Report Signed Patient: Violeta Dong MR#: [id number] 81 : 1990 Acct:[id number] Age/Sex: 34 / F ADM Date: 06/08/25 Loc: HO.MRI Attending Dr: Renae Stone PA-C Ordering Physician: Renae Stone PA-C Date of Service: 06/08/25 Procedure(s): MR knee RT wo con Accession Number(s): [id number] cc: Catrachito Chang MD; Renae Stone PA-C [...] Moshe Colmenares MD 06/09/2025 10:23 AM EDT RP Dictated By: Moshe Colmenares MD Signed By: <Electronically signed by Moshe Colmenares MD in OV> 06/09/25 1023 DD/ 1806 TD/TT: 06/08/25 1818 Batt Packer: ANA Procedure Note Donotuseinterpreter, Image - 06/09/2025 [place] [address] Magnetic Resonance Report Signed Patient: Violeta Dong [facility]#: [id number] [birth year] : 1990Acct:[id number] Age/Sex: 34 / FADM Date: 06/08/25 Loc: HO.MRI Attending Dr: Renae Stone PA-C Ordering Physician: Renae Stone PA-C Date of Service: 06/08/25 Procedure(s): MR knee RT wo con Accession Number(s): [id number] cc: Catrachito Chang MD; Renae Stone PA-C [...] 06/09/25 1023 DD/ 1806 TD/TT: 06/08/25 1818 Batt Packer: ANA [facility] External Provider IMG MRI PROCEDURES Final Result * Helicobacter pylori, Urea Breath Test (05/26/2025 12:30 PM EDT) H. pylori Breath Test Negative Negative [facility] Comment:Antimicrobials, prot on pump inhibitors and bismuthpreparations are known to suppress H. pylori. Ingestingthese medications within two weeks prior to performing thebreath test may produce negative test results. A positiveresult is still clinically valid. 05/26/2025 12:3 0 PM EDT 05/26/2025 4:00 PM EDT Eva Barajas DO LAB BODY FLUIDS AND STOOLS O RDERABLES Final Result [facility] [address] [place] [phone] * QuantiFERON??-TB Gold Plus, 1 Tube (05/21/2025 9:42 AM EDT) Quantiferon -TB Gold Plus, 1 Tube NEGATIVE NEGATIVE [facility] Comment: Negative test result. M. tuberculosis complex infection unlikely. NIL 0.02 IU/mL [facility] MITOGEN-NIL 6.99 IU/mL [facility] TB1-NIL <0.00 IU/mL [facility] TB2-NIL <0.00 IU/mL [facility] Comment: The Nil tube value reflects [...] T-lymphocytes. For additional information, please refer to https://education.Happy Cloud.Dopios/faq/LPX777 (This link is being provided for informational/ educational purposes only.) Your request to have a duplicate copy faxed has been acknowledged. Queued to: [phone] 05/21/2025 9:42 AM EDT 05/21/2025 9:43 AM EDT Narrative [facility] - 05/25/2025 12:32 PM EDT FASTING:NO AN UPDATE OR CORRECTION HAS BEEN MADE TO NAME FASTING: NO us Eva Barajas DO LAB BLOOD ORDERABLES Final R esult Performing Organization Address City/State/[facility] Co de Phone Number [facility] [address], [place] [phone] [address] [place] [phone] * Bacterial Vaginosis (05/20/2025 9:27 AM EDT) TRICHOMONAS VAGINALIS DETECTION BY PCR NOT DETECTED Not Detect [facility] BACTERIAL VAGINOSIS DETECTION BY PCR NEGATIVE Negative [facility] Comment:The BV organism targ ets of [...] DETECTION BY PCR NOT DETECTED Not Detect [facility] Pippa glab krusei PCR NOT DETECTED Not Detect [facility] 05/20/2025 9:27 AM EDT 05/20/2025 5:14 PM EDT us Generic External Data Provider LAB MICROBIOLOGY - GENERAL ORDERABLES Final Result Performing Organization Address City/State/[facility] Co de Phone Number [facility] [address] [place] [phone] * Chlamydia/N. Gonorrhoeae RNA, TMA, Urogenitial (05/20/2025 9:27 AM EDT) CT PCR NOT DETECTED Not Detect. [facility] Comment:A not detected test result does [...] psychologicalconsequences. NG PCR NOT DETECTED Not Detect. [facility] Comment:A not detected test result does [...] 9:27 AM EDT 05/20/2025 5:14 PM EDT Generic External Data Provider LAB MICROBIOLOGY - GENERAL ORDERABLES Final Result Performing Organization Address City/[facility]/ZIP Co de Phone Number [facility] [address] [place] [phone] * MR Knee w/o Contrast Left (05/05/2025 3:27 PM EDT) Anatomical Region Laterality Modality Magnetic Resonan ce 05/05/2025 3:27 PM EDT Narrative 05/05/2025 5:18 PM EDT [address] [address] Magnetic Resonance Report Signed Patient: Violeta Dong MR#: [id number] 81 : 1990 Acct:[id number] Age/Sex: 34 / F ADM Date: 05/05/25 Loc: HO.MRI Attending Dr: Renae Stone PA-C Ordering Physician: Renae Stone PA-C Date of Service: 05/05/25 Procedure(s): MR knee LT wo con Accession Number(s): [id number] cc: Eva Barajas Ta-Mara PA-C Reason for [...] 05/05/25 1715 DD/ 1527 TD/TT: 05/05/25 1642 Batt Packer: Procedure Note Donotuseinterpreter, Image - 05/05/2025 [place] [address] Magnetic Resonance Report Signed Patient: Violeta Dong [facility]#: [id number] [birth year] : 1990Acct:[id number] Age/Sex: 34 / FADM Date: 05/05/25 Loc: HO.MRI Attending Dr: Renae Stone PA-C Ordering Physician: Renae Stone PA-C Date of Service: 05/05/25 Procedure(s): MR knee LT wo con Accession Number(s): [id number] cc: Eva Barajas Ta-Mara PA-C Reason for [...] 05/05/25 1715 DD/ 1527 TD/TT: 05/05/25 1642 Batt Packer: [facility] External Provider IMG MRI PROCEDURES Final Result * HPV E6/E7 RFLX KEKE 16 18/45 (05/17/2022 11:56 AM EDT) HPV mRNA E6/E7 rflx Not Detected Not Detected [facility] Comment: Methodology: Movers-Mediated Amplification This assay detects E6/E7 viral messenger RNA (mRNA) from 14 high-risk HPV types (16,18,31,33,35,39,45,51,52,56,58,59,66,68). Cervical sources are required for HPV testing. If a vaginal source from a patient who has had a total hysterectomy with removal of cervix was submitted, please contact the testing laboratory for alternative testing options. For additional information, please refer to http://education.Hammer & Chisel/faq/CMQ794l4 (This link if provided for information/ educational purposes only.) THIS TEST WAS PERFORMED AT: [facility] [address] [facility] [address],[place] [address] LORRAINE DAVIS MD 05/17/2022 11:5 6 AM EDT us Tamia Rosario HISTORICAL/NON ORDERABLE LABS Fi nal Result [facility] [address] from Last 3 Months or Most Recently Relevant to Health Maintenance Insurance [facility] C3 Care Teams Supervisor Doping Relationship Specialty Start Date End Date Eva Barajas DO [address] [place] [phone] PCP - General Family Medicine 09/02/18
--- OUTSIDE RECORDS SUMMARY | 2025-07-01 16:36 | XMS_ITS | Encounter Summary ---
Author Organization [employer] Address [address] [place] [address] [address] [place] [address] Care Team Providers Care Denture Processor Name Role Phone Eva Barajas DO Primary Care Provider + [phone] Reason for Visit * Reason Onset Date Comments preop 06/24/2025 Encounter Details Date Type Department Care Team (Late st Contact Info) Description 06/24/2025 Telephone [facility] [address] [place], [place] [phone] Eva Barajas DO [address] [place], [place] [phone] preop Social History Tobacco Use Types Packs/Day Years [...] encounter Miscellaneous Notes * Telephone Encounter - Alan Hong - 06/30/2025 4:59 PM EDT TC placed to pt agreed to pre-op on 08/[address] Karl Reynaga detailed vm to facility * Telephone Encounter - Gracie Garcia - 06/24/2025 3:25 PM EDT Date of Surgery: 08/11 Surgical procedure being done: Left knee arthroscopy Type of anesthesia: general anesthesia Lab needed: Yes EKG: Yes Surgeon's name: DR. Rice Facility name: [facility] [place] Orthopedic Surgeon's office number: [phone] Surgeon's office fax number: [phone] Contact name (person you spoke with): Azul Krause office note from surgeon requested: Yes Send Message to Alan Hong documented in this encounter Plan of Treatment Upcoming Encounters Date Type Department Care Team ([facility] Contact Info) Description 07/12/2025 9:15 AM EST Office Visit [facility] [address] [place] [address] [place] [address] Eva Barajas DO [address] [place] [address] documented as of this encounter Visit Diagnoses Not on filedocumented in this encounter Additional Health Concerns Assessment Noted Time PHQ-9 Depression Total Score: 0 06/23/20 25 10:13 AM EDT documented as of this encounter Care Teams Denture Processor Relationship Specialty Start Date End Date Eva Barajas DO [address] [place] [address] PCP - General Family Medicine 09/02/18 documented as of this encounter
== END 2025-07-01 14:16 | disposition home or self-care (01) ==
LOC: HO.HWS 13:36
PROVIDERS: PCP Internal Medicine; Visit Provider Obstetrics & Gynecology
DX: N93.9 Abnormal uterine and vaginal bleeding, unspecified (principal)
CPT/HCPCS: 99213

== ENCOUNTER → 2025-07-01 13:36 | Outpatient (BNVA) | payer MEDICAID, SELFPAY | PROVIDERS: PCP Internal Medicine; Visit Provider Obstetrics & Gynecology | DX: N93.9 Abnormal uterine and vaginal bleeding, unspecified (principal) | CPT/HCPCS: 99212 ==

== ENCOUNTER 2025-07-12 10:05 | Outpatient (REF) | payer MEDICAID, SELFPAY ==
--- OUTSIDE RECORDS SUMMARY | 2025-07-12 09:15 | XMS_ITS | Encounter Summary ---
Author Organization [employer] Address [address] [place] [address] 7 [place] [address] Care Team Providers Care Mail Forwarding System Markup Clerk Name Role Phone Eva Barajas DO Primary Care Provider + [phone] Reason for Visit * Reason Comments Pre-op Exam Encounter Details Date Type Department Care Team ([facility] st Contact Info) Description 07/12/2025 9:15 AM EST Office Visit [facility] [address] [place], [place] [phone] [facility] [address] [place], [place] [phone] Preoperative examination (Primary Dx) Social History Tobacco Use Types Packs/Day Years [...] Sign Reading Time Taken Comments Blood Pressure 130/78 07/12/2025 9:32 AM EST Pulse 96 07/12/2025 9:32 AM EST Temperature 37 C (98.6 F) 07/12/2025 9:32 AM EST Respiratory Rate 17 07/12/2025 9:32 AM EST Oxygen Saturation - - Inhaled Oxygen Concentration - - Weight 94.9 kg (209 lb 3.2 oz) 07/12/2025 9:32 A M EST Height 165.1 cm (5' 5 ) 07/12/2025 9:32 AM EST Body Mass Index 34.81 07/12/2025 9:32 AM EST documented in this encounter Plan of Treatment Scheduled Orders Name Type Priority Associated Diagnoses Orde r Schedule Prothrombin Time-INR Lab Routine Preoperative examination Expected: 07/12/2025, Expires: 07/12/2026 Basic Metabolic Panel Lab Routine Preoperative examination Expected: 07/12/2025 (Approximate), Expires: 07/12/2026 documented as of this encounter Procedures Procedure Name Priority Date/Time Associated Diagnosis Comments CBC WITH AUTO DIFFERENTIAL Routine 07/12/2025 10:10 AM EST Preoperative examination documented in this encounter Results * (ABNORMAL) CBC auto differential (07/12/2025 10:10 AM EST) White Blood Count 8.5 4.8 - 10.8 X10*3/uL [facility] Red Blood Count 4.69 4.20 - 5.50 X10*6/uL [facility] Hemoglobin 14.3 12.0 - 16.0 g/dl [facility] Hematocrit 40.2 37.0 - 47.0 % [facility] Mean Corpuscular Volume 85.7 80.0 - 98.0 fL [facility] Mean Corpuscular Hemoglobin 30.5 27.0 - 33.0 pg [facility] Mean Corpuscular HGB Conc 35.6(H) 31.0 - 35.0 g/dl [facility] Red Cell Distribution Width 13.0 11.0 - 16.0 % [facility] Platelet Count 370 160 - 400 X10*3/uL [facility] Mean Platelet Volume 10.6 9.4 - 12.3 fL [facility] Neutrophils Percent Auto 61.0 45 - 73 % [facility] Imm Gran Pct Auto 0.4 0.0 - 0.4 % [facility] Lymphocytes Percent Auto 31.5 20 - 40 % [facility] Monocytes Percent Auto 6.0 2 - 11 % [facility] Eosinophils Percent Auto 0.5 0 - 4 % [facility] Basophils Percent Auto 0.6 0 - 2 % [facility] NRBC Pct Auto 0.0 0.0 - 0.2 /100WBC [facility] Neutrophils Absolute Auto 5.2 2.0 - 8.3 x10*3/uL [facility] Imm Gran Abs Auto 0.03 0.00 - 0.03 X10*3/uL [facility] Lymphocytes Absolute Auto 2.7 1.2 - 4.9 X10*3/uL [facility] Monocytes Absolute Auto 0.5 0.1 - 1.2 X10*3/uL [facility] Eosinophils Absolute Auto 0.0 0.0 - 0.4 X10*3/uL [facility] Basophils Absolute Auto 0.1 0.0 - 0.2 X10*3/uL [facility] NRBC Abs Auto 0.000 0.0 - 0.012 X10*3/uL [facility] Blood Venous blood specimen / Unknown 07/12/2025 10:10 AM EST 07/12/2025 11:22 AM EST [facility] STAFF SCIENTIST LAB BLOOD ORDERABLES Final Re sult Performing Organization Address City/State/[facility] Co de Phone Number [facility] [address] [place] [address] [phone] documented in this encounter Visit Diagnoses Diagnosis Preoperative examination- Primary Unspecified pre-operative examination documented in this encounter Additional Health Concerns Assessment Noted Time PHQ-9 Depression Total Score: 0 06/23/20 25 10:13 AM EDT documented as of this encounter Care Teams Mail Forwarding System Markup Clerk Relationship Specialty Start Date End Date Eva Barajas DO [address] [place] [phone] PCP - General Family Medicine 09/02/18 documented as of this encounter
[2025-07-12 11:25] LABS: MANUAL DIFF FLAG NO
[2025-07-12 11:39] LABS: Hematocrit 40.2 % (37.0-47.0); Hemoglobin 14.3 g/dl (12.0-16.0); Imm Gran Abs Auto 0.03 X10*3/uL (0.00-0.03); Imm Gran Pct Auto 0.4 % (0.0-0.4); Lymphocytes Absolute Auto 2.7 X10*3/uL (1.2-4.9); Mean Corpuscular HGB Conc 35.6 g/dl (31.0-35.0); Mean Corpuscular Hemoglobin 30.5 pg (27.0-33.0); Mean Corpuscular Volume 85.7 fL (80.0-98.0); NRBC Abs Auto 0.000 X10*3/uL (0.0-0.012); NRBC Pct Auto 0.0 /100WBC (0.0-0.2); Platelet Count 370 X10*3/uL (160-400); Red Blood Count 4.69 X10*6/uL (4.20-5.50); White Blood Count 8.5 X10*3/uL (4.8-10.8)
[2025-07-12 11:46] LABS: INTERNATIONAL NORM RATIO 1.1 (0.9-1.1); Prothrombin Time 12.9 SEC (11.2-13.5)
--- OUTSIDE RECORDS SUMMARY | 2025-07-12 11:46 | XMS_ITS | Encounter Summary ---
Author Organization [employer] Address [address] [place] [address] [address] [place] [address] Care Team Providers Care Dog Trainer Name Role Phone Eva Barajas DO Primary Care Provider + [phone] Encounter Details Date Type Department Care Team ([facility] st Contact Info) Description 05/02/2023 Telephone [facility] [address] [place], [place] [phone] Eva Barajas DO [address] [place], [place] [phone] Social History Tobacco Use Types Packs/Day Years [...] - 05/02/2023 9:49 AM EDT Discard task. Bank Messenger booked appt with Available slot. documented in this encounter Plan of Treatment Not on file documented as of this encounter Visit Diagnoses Not on filedocumented in this encounter Care Teams Dog Trainer Relationship Specialty Start Date End Date Eva Barajas DO [address] [place], [place] [phone] PCP - General Family Medicine 09/02/18 documented as of this encounter
--- OUTSIDE RECORDS SUMMARY | 2025-07-12 11:46 | XMS_ITS | Clinical Summary ---
Author Organization Located [facility] Address [address] [place] [phone] Phone Care Team Providers Care Brake Repairer Name Role Phone JosieEva laughlin Primary Care Provider [phone] Allergies Active Allergy Reactions Criticality Noted Date [...] history exists COVID-19 VACCINE (2024- season) 2025 IPV VACCINES Completed 07/09/1991, 10/31, 04/02/1990, Additional history exists MENINGOCOCCAL VACCINES (ACWY) Completed [...] topic Medical Devices Not on file Insurance C3 ACO C3 ACO C3 ACO C3 ACO C3 ACO C3 ACO C3 ACO C3 ACO C[address] [place] [address] [address] [address] Care Teams Brake Repairer Relationship Specialty Start Date End Date Eva Barajas DO [address] [place] [address] PCP - General Family Medicine 05/29/21 Additional Source Comments The information contained in this document represents components of the legal health record. It is not the complete legal health record.Located [facility]
--- OUTSIDE RECORDS SUMMARY | 2025-07-12 11:46 | XMS_ITS | Encounter Summary ---
Author Organization [employer] Address [address] [facility] 7 [place] [address] Care Team Providers Care Coppersmith Helper Name Role Phone Eva Barajas DO Primary Care Provider + [phone] Encounter Details Date Type Department Care Team (Latest Contact Info) Description 07/12/2025 Travel Social History Tobacco Use Types Packs/Day [...] documented as of this encounter Care Teams Coppersmith Helper Relationship Specialty Start Date End Date Eva Barajas DO [address] [place] [address] PCP - General Family Medicine 09/02/18 documented as of this encounter
--- OUTSIDE RECORDS SUMMARY | 2025-07-12 11:46 | XMS_ITS | Clinical Summary ---
Author Organization [employer] Address [address] [place] [address] 7 [place] [address] Care Team Providers Care Motion Study Engineer Name Role Phone Eva Barajas Primary Care Provider + [phone] Allergies Active Allergy Reactions Criticality Noted Date [...] PAIN 40 tablet 1 05/04/20 25 Active hydrocortisone (Proctosol HC) 2.5 % rectal cream Insert into the rectum if needed in the morning and at bedtime for hemorrhoids. 28 g 3 05/26/20 25 Active witch kylie-glycerin (Tucks) pad Apply topically if needed for irritation. 96 each 3 05/26/20 25 Active baclofen (Lioresal) 10 MG tablet TAKE 1 TABLET (10 MG) BY MOUTH NEEDED IN THE MORNING , AT NOON, AND AT BEDTIME FOR MUSCLE SPASMS 60 tablet 1 06/04/20 25 Active phentermine 37.5 MG capsule Take 1 capsule (37.5 mg) by mouth before breakfast. 30 capsule 2 06/23/20 25 026 Active polycarbophil (Fibercon) 625 MG tablet Take 1 tablet (625 mg) by mouth 2 times daily. 180 tablet 3 05/26/20 25 025 Discontinued famotidine (Pepcid) 20 MG tablet Take 1 tablet (20 mg) by mouth if needed in the morning and at bedtime for heartburn. 60 tablet 3 05/26/20 25 025 Discontinued phentermine 30 MG capsuleIndicat [...] Encounters Date Type Department Care Team Description 07/12/2025 9:15 AM EST Office Visit [address] [address] Radha Flores, ROBERTO Preoperative examination (Primary Dx) 07/12/2025 Travel 07/06/2025 Telephone [facility] [address] [place] [phone] Eva Barajas DO Chart Prep 07/05/2025 Travel 06/24/[address] [address] Eva Barajas DO preop 06/23/2025 9:30 AM EDT Office Visit [address] [address] Eva Barajas DO Routine history and physical examination of adult (Primary Dx); Chronic gastroesophageal reflux disease; Chronic pain of both knees; Inflamed external hemorrhoid; PCB (post coital bleeding); Obesity (BMI 30-39.9); Dietary counseling; Exercise counseling 06/23/[address] [address] Eva Barajas DO 06/16/2025 Patient Outreach [address] [address] Eva Barajas DO Pre-visit Planning (SDOH screening was completed on 03/15/2025) 06/15/[address] [address] Eva Barajas DO Chart Prep 06/08/2025 Orders Only [facility] External Provider, [facility] 06/04/[address] [address] Eva Barajas DO 05/26/2025 11:30 AM EDT Office Visit [address] [address] Eva Barajas DO Inflamed external hemorrhoid (Primary Dx); History of Helicobacter pylori infection; Obesity (BMI 30-39.9); Encounter for immunization 05/26/2025 Orders Only [facility] [address] [place] [address] Eva Barajas, 05/26/2025 Travel 05/25/2025 Travel 05/25/2025 Telephone [facility] [address] [place] [address] Eva Barajas DO Chart Prep 05/21/2025 Orders Only [facility] [address] [place] [address] Eva Barajas DO 05/05/2025 Orders Only [facility] External Provider, [facility] 05/04/2025 Telephone [facility] [address] [place] [address] Eva Barajas DO Lab Orders 05/02/2025 Refill [facility] [address] [place] [address] Eva Barajas DO 04/13/2025 Refill [facility] [address] [place] [address] Eva Barajas DO Morbid obesity with BMI of 40.0-44.9, adult ([facility]) from Last 3 Months Immunizations Immunization [...] 17 07/12/2025 9:32 AM EST Oxygen Saturation 98% 06/23/2025 10:11 AM EDT Inhaled Oxygen Concentration - - Weight 94.9 kg (209 lb 3.2 oz) 07/12/2025 9:32 A M EST Height 165.1 cm (5' 5 ) 07/12/2025 9:32 AM EST Body Mass Index 34.81 07/12/2025 9:32 AM EST Plan of Treatment Health Maintenance Due Date Last Done Comments Family Planning (PISQ) 2003 HPV Vaccines (3 - 3-dose series) 12/09/2007 09/16/2007, 03/28/2007 Pap Smear 2009 COVID-19 Vaccine ( season) 2025 Alcohol/Substance Use Screening 03/15/2026 03/15/2025 SDOH Screening 03/15/2026 03/15/2025 Disability Screening 05/25/2026 05/25/2025 Depression Screening 06/23/2026 06/23/2025, 06/23/20 25 Tobacco Screening 07/12/2026 07/12/2025 Cervical Cancer Screening 05/17/2027 HPV/Cotest 05/17/2027 05/17/2022, [...] Routine 07/12/2025 10:10 AM EST Preoperative examination RPR (MONITOR) W/REFL TITER Routine 06/23/2025 11:24 [...] Recently Relevant to Health Maintenance Results * (ABNORMAL) CBC auto differential (07/12/2025 10:10 AM EST) White Blood Count 8.5 4.8 - 10.8 X10*3/uL [facility] Red Blood Count 4.69 4.20 - 5.50 X10*6/uL [facility] Hemoglobin 14.3 12.0 - 16.0 g/dl [facility] Hematocrit 40.2 37.0 - 47.0 % [facility] Mean Corpuscular Volume 85.7 80.0 - 98.0 fL [facility] Mean Corpuscular Hemoglobin 30.5 27.0 - 33.0 pg [facility] Mean Corpuscular HGB Conc 35.6(H) 31.0 - 35.0 g/dl [facility] Red Cell Distribution Width 13.0 11.0 - 16.0 % [facility] Platelet Count 370 160 - 400 X10*3/uL [facility] Mean Platelet Volume 10.6 9.4 - 12.3 fL [facility] Neutrophils Percent Auto 61.0 45 - 73 % [facility] Imm Gran Pct Auto 0.4 0.0 - 0.4 % [facility] Lymphocytes Percent Auto 31.5 20 - 40 % [facility] Monocytes Percent Auto 6.0 2 - 11 % [facility] Eosinophils Percent Auto 0.5 0 - 4 % [facility] Basophils Percent Auto 0.6 0 - 2 % [facility] NRBC Pct Auto 0.0 0.0 - 0.2 /100WBC [facility] Neutrophils Absolute Auto 5.2 2.0 - 8.3 x10*3/uL [facility] Imm Gran Abs Auto 0.03 0.00 - 0.03 X10*3/uL [facility] Lymphocytes Absolute Auto 2.7 1.2 - 4.9 X10*3/uL [facility] Monocytes Absolute Auto 0.5 0.1 - 1.2 X10*3/uL [facility] Eosinophils Absolute Auto 0.0 0.0 - 0.4 X10*3/uL [facility] Basophils Absolute Auto 0.1 0.0 - 0.2 X10*3/uL [facility] NRBC Abs Auto 0.000 0.0 - 0.012 X10*3/uL [facility] Blood Venous blood specimen / Unknown 07/12/2025 10:10 AM EST 07/12/2025 11:22 AM EST [facility] DIGITAL PHOTOGRAPHER LAB BLOOD ORDERABLES Final Re sult [facility] [address] [place] [phone] * Vitamin D, 25-Hydroxy, Total, Immunoassay (06/23/2025 11:24 AM EDT) Vitamin D 25-OH Total 37.6 >30 ng/mL [facility] Comment: Health Based Reference Values*< 20 ng/mL Qettezcfh94-56 ng/mL Insufficient> 30 ng/mL Sufficient*Candido KEE. N [...] ORDERABLES Final R esult Performing Organization Address [facility]/ZIP Co de Phone Number [facility] [address] [place] [address] [phone] * Hepatitis C Antibody with Reflex to HCV, RNA, Quantitative, Real-Time PCR (06/23/2025 11:24 AM EDT) Hepatitis C Antibody Nonreactive Nonreactive [facility] Comment:Antibodies to HCV no t detected; does not exclude early acuteHCV infection. Blood Venous blood specimen / Unknown 06/23/2025 11:24 AM EDT 06/23/2025 1:04 PM EDT Eva Galindotruman DO LAB BLOOD ORDERABLES Final R esult Performing Organization Address [facility] Co de Phone Number [facility] [address] [place] [address] [phone] * RPR (Monitor) with Reflex to??Titer (06/23/2025 11:24 AM EDT) RPR (Monitor) w/Refl Titer NON-REACTI VE NON-REACT MICHOACANO [facility] Comment:THIS TEST WAS PERFOR MED AT:[facility] [place] [phone] DAVIS MD Rapid Plasma Reagin Ab Titer TNP [facility] Blood Venous blood specimen / Unknown 06/23/2025 11:24 AM EDT 06/23/2025 1:04 PM EDT Eva Karl DO LAB BLOOD ORDERABLES Final R esult Performing Organization Address [facility] Co de Phone Number [facility] [address] [place] [address] [phone] * HIV-1/2 Antigen and Antibodies, Fourth Generation, with Reflexes (06/23/2025 11:24 AM EDT) HIV AB/AG Nonreactive Nonreactive [facility] Comment:HIV-1 p24 Ag and/or HIV-1/HIV-2 Ab not detected.A test result that is nonreactive does not exclude thepossibility of exposure to or infection with HIV-1 and/orHIV-2. Nonreactive results in this assay for individualswith prior exposure to HIV-1 and/or HIV-2 may be due toantigen and antibody levels that are below the limit ofdetection of this assay.The [employer] HIV Ag/Ab Combo assay result andsupplemental assay results should be interpreted inconjunction with the patient's clinical presentation,history and other laboratory results. If the results areinconsistent with clinical evidence, additional testing issuggested to confirm the result. Blood Venous blood specimen / Unknown 06/23/2025 11:24 AM EDT 06/23/2025 1:04 PM EDT Eva Barajas DO LAB BLOOD ORDERABLES Final R esult [facility] [address] [place] [phone] * CBC (06/23/2025 11:24 AM EDT) White Blood Count 8.6 4.8 - 10.8 X10*3/uL [facility] Red Blood Count 4.53 4.20 - 5.50 X10*6/uL [facility] Hemoglobin 13.3 12.0 - 16.0 g/dl [facility] Hematocrit 38.0 37.0 - 47.0 % [facility] Mean Corpuscular Volume 83.9 80.0 - 98.0 fL [facility] Mean Corpuscular Hemoglobin 29.4 27.0 - 33.0 pg [facility] Mean Corpuscular HGB Conc 35.0 31.0 - 35.0 g/dl [facility] Red Cell Distribution Width 13.0 11.0 - 16.0 % [facility] Platelet Count 377 160 - 400 X10*3/uL [facility] Mean Platelet Volume 10.9 9.4 - 12.3 fL [facility] NRBC Pct Auto 0.0 0.0 - 0.2 /100WBC [facility] NRBC Abs Auto 0.000 0.0 - 0.012 X10*3/uL [facility] Blood Venous blood specimen / Unknown 06/23/2025 11:24 AM EDT 06/23/2025 1:04 PM EDT us Eva Barajas DO LAB BLOOD ORDERABLES Final R esult Performing Organization Address City/[facility]/ZIP Co de Phone Number [facility] [address] [place] [phone] * TSH (06/23/2025 11:24 AM EDT) Thyroid Stimulating Hormone 1.37 0.32 - 4.0 uIU/mL [facility] Comment:TSH 3rd Generation ( [facility]) Blood Venous blood specimen / Unknown 06/23/2025 11:24 AM EDT 06/23/2025 1:04 PM EDT Eva Barajas DO LAB BLOOD ORDERABLES Final R esult Performing Organization Address [facility] Co de Phone Number [facility] [address] [place] [phone] * T4, Free (06/23/2025 11:24 AM EDT) Free T4 (Free Thyroxine) 0.97 0.71 - 1.85 ng/dL [facility] Blood Venous blood specimen / Unknown 06/23/2025 11:24 AM EDT 06/23/2025 1:04 PM EDT Eva Barajas DO LAB BLOOD ORDERABLES Final R esult Performing Organization Address City/[facility] Co de Phone Number [facility] [address] [place] [phone] * Hemoglobin A1c (06/23/2025 11:24 AM EDT) Hemoglobin A1c 5.1 <6.0 % [facility] Comment:Hemoglobin A1C Refer ence Range Adults: 4.8 - 6.0 % Non diabetic: < 6.0 % Goal: < 7.0 %Additional Action Suggested: > 8.0 %Note: Hemoglobin A1c results are invalid for patients with abnormal amounts of HbF. Blood transfusions may impact the HbA1c concentration in the patient sample. Estimated Average Glucose 100 mg/dL [facility] Comment:eAG = Estimated ave rage glucose which is %A1C expressed asaverage glucose, using the formula of the R5L-ChrkejnOzvkedq Glucose study (ADAG), Diabetes Care, Vol.31,#8,Apr. 2007 Blood Venous blood specimen / Unknown 06/23/2025 11:24 AM EDT 06/23/2025 1:04 PM EDT Eva Barajas DO LAB BLOOD ORDERABLES Final R esult [facility] [address] [place] [phone] * (ABNORMAL) Hepatic Function Panel (06/23/2025 11:24 AM EDT) Bilirubin, Total 1.8(H) 0.0 - 1.0 mg/dL [facility] Bilirubin, Direct 0.6(H) 0.0 - 0.5 mg/dL [facility] Aspartate Amino Transferase 23 5 - 31 U/L [facility] Alanine Aminotransferase 14 0 - 31 U/L [facility] Total Protein 7.9 6.5 - 8.0 g/dL [facility] Albumin Level 4.6 3.5 - 5.0 g/dL [facility] Alkaline Phosphatase 48 39 - 117 U/L [facility] Blood Venous blood specimen / Unknown 06/23/2025 11:24 AM EDT 06/23/2025 1:04 PM EDT Eva Karl DO LAB BLOOD ORDERABLES Final R esult Performing Organization Address City/[facility]/ZIP Co de Phone Number [facility] [address] [place] [phone] * (ABNORMAL) Lipid Panel, Standard (06/23/2025 11:24 AM EDT) Triglycerides 71 <150 mg/dL [facility] Comment:Desirable Triglyceri de: less than 150 mg/dLBorderline High Triglyceride 150-199 mg/dLHigh Triglyceride: 200-499 mg/dLVery High Triglyceride: greater than or equal to 5OO mg/dL Cholesterol 158 <200 mg/dL [facility] Comment:Desirable Cholestero l: less than 200 mg/dLBorderline High Cholesterol: 200-239 mg/dLHigh Cholesterol: greater than 239 mg/dL LDL Cholesterol Calculated 103(H) <100 mg/dL [facility] Comment:Desirable LDL: less than 100 mg/dLNear Optimal/Above Optimal LDL: 110- 129 mg/dLBorderline High LDL: 130-159 mg/dLHigh LDL: 160-189 mg/dLVery High LDL: greater than or equal to 190 mg/dL HDL Cholesterol 41 >40 mg/dL [facility] Comment:Desirable HDL: great er than 40 mg/dL Note: This HDL assay may give artificially low results in patients with liver disease. Blood Venous blood specimen / Unknown 06/23/2025 11:24 AM EDT 06/23/2025 1:04 PM EDT us Eva Barajas DO LAB BLOOD ORDERABLES Final R esult [facility] [address] [place] [phone] * (ABNORMAL) Basic Metabolic Panel (06/23/2025 11:24 AM EDT) Sodium 139 135 - 145 mmol/L [facility] Potassium 3.7 3.3 - 5.1 mmol/L [facility] Chloride 106 96 - 108 mmol/L [facility] Carbon Dioxide 26 22 - 29 mmol/L [facility] Anion Gap 11(L) 12 - 20 [facility] Urea Nitrogen (BUN) 12 9 - 16 mg/dL [facility] Creatinine, Serum 0.73 0.5 - 1.4 mg/dL [facility] Estimated Glomerular Filt Rate >60 [facility] Comment:Chronic Kidney Disea se: Estimated GFR < 60 mL/min/1.88h5Ggtscv Kidney Disease: Estimated GFR < 15 mL/min/1.73m2 Glucose 93 60 - 115 mg/dL [facility] Calcium 9.6 8.4 - 10.2 mg/dL [facility] Blood Venous blood specimen / Unknown 06/23/2025 11:24 AM EDT 06/23/2025 1:04 PM EDT us Eva Barajas DO LAB BLOOD ORDERABLES Final R esult Performing Organization Address City/State/[facility] Co de Phone Number [facility] [address] [place] [phone] * MR Knee w/o Contrast Right (06/08/2025 6:06 PM EDT) Anatomical Region Laterality Modality Magnetic Resonan ce 06/08/2025 6:06 PM EDT Narrative 06/09/2025 10:26 AM EDT [address] [address] Magnetic Resonance Report Signed Patient: Violeta Dong MR#: [id number] 81 : 1990 Acct:[id number] Age/Sex: 34 / F ADM Date: 06/08/25 Loc: HO.MRI Attending Dr: Renae Stone PA-C Ordering Physician: Renae Stone PA-C Date of Service: 06/08/25 Procedure(s): MR knee RT wo con Accession Number(s): [id number] cc: Catrachito Chang MD; Renae Stone PA-C [...] 06/09/25 1023 DD/ 1806 TD/TT: 06/08/25 1818 Cell Lead: ANA Procedure Note Donotuseinterpreter, Image - 06/09/2025 [place] [address] Magnetic Resonance Report Signed Patient: Violeta Dong [facility]#: [id number] [birth year] : 1990Acct:[id number] Age/Sex: 34 / FADM Date: 06/08/25 Loc: HO.MRI Attending Dr: Renae Stone PA-C Ordering Physician: Renae Stone PA-C Date of Service: 06/08/25 Procedure(s): MR knee RT wo con Accession Number(s): [id number] cc: Catrachito Chang MD; Renae Stone PA-C [...] 06/09/25 1023 DD/ 1806 TD/TT: 06/08/25 1818 Cell Lead: ANA [facility] External Provider IMG MRI PROCEDURES Final Result * Helicobacter pylori, Urea Breath Test (05/26/2025 12:30 PM EDT) H. pylori Breath Test Negative Negative [facility] Comment:Antimicrobials, prot on pump inhibitors and bismuthpreparations are known to suppress H. pylori. Ingestingthese medications within two weeks prior to performing thebreath test may produce negative test results. A positiveresult is still clinically valid. 05/26/2025 12:3 0 PM EDT 05/26/2025 4:00 PM EDT Eva Barajas DO LAB BODY FLUIDS AND STOOLS O RDERABLES Final Result [facility] [address] [place] [phone] * QuantiFERON??-TB Gold Plus, 1 Tube (05/21/2025 9:42 AM EDT) Quantiferon -TB Gold Plus, 1 Tube NEGATIVE NEGATIVE [facility] [employer] Comment: Negative test result. M. tuberculosis complex infection unlikely. NIL 0.02 IU/mL [facility] [employer] MITOGEN-NIL 6.99 IU/mL [facility] [employer] TB1-NIL <0.00 IU/mL [facility] [employer] TB2-NIL <0.00 IU/mL [facility] [place] [facility] Comment: The Nil tube value reflects [...] T-lymphocytes. For additional information, please refer to https://education.FindYogi/faq/XKH025 (This link is being provided for informational/ educational purposes only.) Your request to have a duplicate copy faxed has been acknowledged. Queued to: [id number] 05/21/2025 9:42 AM EDT 05/21/2025 9:43 AM EDT Narrative [facility] - 05/25/2025 12:32 PM EDT FASTING:NO AN UPDATE OR CORRECTION HAS BEEN MADE TO NAME FASTING: NO us Eva Barajas DO LAB BLOOD ORDERABLES Final R esult [facility] [address], [place] [address] [facility] [address] [place] [address] * Bacterial Vaginosis (05/20/2025 9:27 AM EDT) TRICHOMONAS VAGINALIS DETECTION BY PCR NOT DETECTED Not Detect [facility] BACTERIAL VAGINOSIS DETECTION BY PCR NEGATIVE Negative [facility] Comment:The BV organism targ [...] DETECTION BY PCR NOT DETECTED Not Detect [facility] Pippa glab krusei PCR NOT DETECTED Not Detect [facility] 05/20/2025 9:27 AM EDT 05/20/2025 5:14 PM EDT us Generic External Data Provider LAB MICROBIOLOGY - GENERAL ORDERABLES Final Result [facility] [address] [place] [phone] * Chlamydia/N. Gonorrhoeae RNA, TMA, Urogenitial (05/20/2025 9:27 AM EDT) CT PCR NOT DETECTED Not Detect. [facility] Comment:A not detected test [...] psychologicalconsequences. NG PCR NOT DETECTED Not Detect. [facility] Comment:A not detected test [...] GENERAL ORDERABLES Final Result Performing Organization Address City/State/[facility] Co de Phone Number [facility] [address] [place] [phone] * MR Knee w/o Contrast Left (05/05/2025 3:27 PM EDT) Anatomical Region Laterality Modality Magnetic Resonan ce 05/05/2025 3:27 PM EDT Narrative 05/05/2025 5:18 PM EDT [address] [address] Magnetic Resonance Report Signed Patient: Violeta Dong MR#: [id number] 81 : 1990 Acct:[id number] Age/Sex: 34 / F ADM Date: 05/05/25 Loc: HO.MRI Attending Dr: Renae Stone PA-C Ordering Physician: Renae Stone PA-C Date of Service: 05/05/25 Procedure(s): MR knee LT wo con Accession Number(s): [id number] cc: Eva Barajas Ta-Mara PA-C Reason for [...] 05/05/25 1715 DD/ 1527 TD/TT: 05/05/25 1642 Cell Lead: Procedure Note Donotuseinterpreter, Image - 05/05/[address] [address] Magnetic Resonance Report Signed Patient: Violeta Dong MMR#: [id number] [birth year] : 1990Acct:[id number] Age/Sex: 34 / FADM Date: 05/05/25 Loc: HO.MRI Attending Dr: Renae Stone PA-C Ordering Physician: Renae Stone PA-C Date of Service: 05/05/25 Procedure(s): MR knee LT wo con Accession Number(s): [id number] cc: Eva Barajas DO; Renae Stone PA-C [...] 05/05/25 1715 DD/ 1527 TD/TT: 05/05/25 1642 Cell Lead: [facility] External Provider IM MRI PROCEDURES Final Result * HPV E6/E7 RFLX KEKE 16 18/45 (05/17/2022 11:56 AM EDT) HPV mRNA E6/E7 rflx Not Detected Not Detected [facility] Comment: Methodology: Car Ferrier-Mediated Amplification This assay detects E6/E7 viral messenger RNA (mRNA) from 14 high-risk HPV types (16,18,31,33,35,39,45,51,52,56,58,59,66,68). Cervical sources are required for HPV testing. If a vaginal source from a patient who has had a total hysterectomy with removal of cervix was submitted, please contact the testing laboratory for alternative testing options. For additional information, please refer to http://education.FindYogi/faq/NWC004d7 (This link if provided for information/ educational purposes only.) THIS TEST WAS PERFORMED AT: [employer] [address] [place] [address],[place] [phone] LORRAINE DAVIS MD 05/17/2022 11:5 6 AM EDT us Tamia Rosario HISTORICAL/NON ORDERABLE LABS Fi nal Result [facility] [address] from Last 3 Months or Most Recently Relevant to Health Maintenance Insurance [facility] C3 Care Teams Motion Study Engineer Relationship Specialty Start Date End Date Eva Barajas DO [address] [place] [phone] PCP - General Family Medicine 09/02/18
--- OUTSIDE RECORDS SUMMARY | 2025-07-12 11:46 | XMS_ITS | Data Portability ---
Author Organization [facility], [address] Address [address] [place] [address] Assessment No assessment recorded. Plan of Treatment Reminders Order Date Submit Date Provider Last Modified By Organization Details Last Modified Time Details Appointments None recorded. Lab Mycobacteri um tuberculosi s stimulated gamma interferon, qual, blood 2022 023 DE WITT [facility] ([facility], [address] [place] [address], [place], [address], 18:05:47 Referral None recorded. Procedures None recorded. [...] INCUBA TION PERFOR MED. Not Available [facility] ([facility]) [address] [facility], [place], [address], 03/16/2023 18:05:47 03/14/20 23 03/16/2023 QUANT IFERO [...] ol for the test. Not Available [facility] ([facility]) [address] [place], [address], 03/16/2023 18:05:47 03/14/20 23 03/16/2023 QUANT IFERO N-TB GOLD PLUS quantiferon TB1 Ag value 0.01 IU/mL Not Available [facility] ([facility]) [address] [place], [address], 03/16/2023 18:05:47 03/14/20 23 03/16/2023 QUANT IFERO N-TB GOLD PLUS quantiferon TB2 Ag value 0.02 IU/mL Not Available [facility] ([facility]) [address] [place], [address], 03/16/2023 18:05:47 03/14/20 23 03/16/2023 QUANT IFERO N-TB GOLD PLUS quantiferon nil value 0.01 IU/mL Not Available [facility] ([facility]) [address] [place], [address], 03/16/2023 18:05:47 03/14/20 23 03/16/2023 QUANT IFERO N-TB GOLD PLUS quantiferon mitogen value >10.00 IU/mL Not Available [facility] ([facility]) [address] [place], [address], 03/16/2023 18:05:47 03/14/20 23 03/16/2023 QUANT IFERO [...] y metho dolog y Not Available [facility] ([facility]) [address], [place], [address], 03/16/2023 18:05:47 Result Notes None recorded. Procedures [...] ICD10 Code Diagnosis IMO Codes Diagnosis Note [id number] [address] [facility] [place] [address] 03/28/2022 14:43:34 03/28/2022 16:35:27 [id number] Yamileth Prabhakar MD [address] [facility] [place] [address] 03/14/2023 08:28:07 03/14/2023 09:25:48 History and physical examination, occupation [id number] Z02.1 Health Concerns Section Related Observation LastModified by Organization Detai ls LastModified Time None Recorded Concern Status LastModified by Organization Details LastModified Time None Recorded Advance Directives Directive None Recorded Payers Insurance Date Sequence Insurance Name Policy Number Policy Noble Covered Member ID Noble Member ID Guarantor Name 03/14/2023 [facility] RN NETWORK [facility] Rn Network [facility] Violeta Dong OBGyjadiel Episode No OBEpisode recorded.
[2025-07-12 12:09] LABS: Anion Gap 11 (12-20); Blood Urea Nitrogen 14 mg/dL (9-16); Calcium 9.9 mg/dL (8.4-10.2); Carbon Dioxide 25 mmol/L (22-29); Chloride 106 mmol/L (96-108); Estimated Glomerular Filt Rate > 60; Potassium 4.0 mmol/L (3.3-5.1); Sodium 138 mmol/L (135-145)
[2025-07-15 11:48] LABS: TS Negative Control Passed; TS Panel A 0; TS Panel B 0; TS Positive Control Passed; TSpotTB Negative (Negative)
== END 2025-07-12 10:06 | disposition home or self-care (01) ==
LOC: HO.HHCL 10:05
PROVIDERS: PCP Family Medicine; Referring Provider Registered Nurse; Visit Provider Family Medicine
DX: Z51.81 Encounter for therapeutic drug level monitoring (principal); Z01.812 Encounter for preprocedural laboratory examination; Z11.1 Encounter for screening for respiratory tuberculosis
CPT/HCPCS: 36415; 80048; 85025; 85610; 86481

== ENCOUNTER 2025-07-20 11:53 | Outpatient (AMB) | payer MEDICAID, SELFPAY ==
--- NOTE | 2025-07-20 11:54 | A.OFFVIS_ITS ---
Vital Signs 07/20/25 11:57 Height 5 ft 5 in Weight 210 lb BMI 34.9 BP 100/66 Intake Visit Reasons: Mirena insertion Yarn Rewinder Required: No Information Interpreted: non-clinical & clinical Director Of Critical Care: Director Of Critical Care Present Accompanied by: Self / Same As Patient Allergies polyethylene glycol 3350 (From Miralax) Allergy (Mild, Verified 07/20/25 12:02) Hives Is last menstrual period known: Yes Last menstrual period: 07/16/25 HPI Comments Details: Presenting for Mirena IUD insertion [facility] Medical History Encounter for well woman exam with routine gynecological exam Surgical History H/O shoulder surgery History of hip surgery H/O right knee surgery Family History Mother Hypertension Social History Alcohol intake: never Patient Tobacco Use Status: Never used Tobacco Current occupational status: employed 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, [employer]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 Sexual orientation: Straight/Heterosexual Gender identity: Female Female Reproductive History Menstrual Date of last menstrual period: 07/16/25 Review of Systems Const All systems reviewed & are unremarkable except as noted in HPI and below Reports as per HPI and Reports no additional complaints GI Reports no additional complaints Reports no additional complaints Physical Exam Vital Signs: Last Vital Signs BP 100/66 07/20/25 11:57 BMI result Body Mass Index 34.9 Office Procedures IUD Insert/Removal Details Details: The patient is presenting for Mirena IUD insertion Urine test was done in the office and was negative; All the contraindications were excluded. The following possible complications were discussed with the patient: Intrauterine , Ectopic , Sepsis, Pelvic Infection, Irregular Bleeding and Amenorrhea, Perforation, Expulsion, Ovarian Cysts, Breast Cancer, The following adverse effects were discussed with the patient: alteration of menstrual bleeding pattern, including: unscheduled uterine bleeding decreased uterine bleeding increased scheduled uterine bleeding female genital tract bleeding ,amenorrhea , genital discharge , vulvovaginitis , breast pain , benign ovarian cyst and associated complications , dysmenorrhea , Gastrointestinal disorders abdominal/pelvic pain, headache/migraine , back pain , acne , depression Alternative options were discussed with the patient including but not limited: control pills, patch, NuvaRing, Depo-medroxyprogesterone acetate, Nexplanon, copper IUD, sterilization, vasectomy, others The procedure was explained in detail to patient , at the end patient signed the informed consent obtained. A no touch technique was used throughout the procedure. A speculum was placed into vagina and cervix was cleaned with betadine). A tenaculum was placed. A plastic sound was advanced through the external and internal os until it reached the fundus of the uterus, the depth was 8 cm. The sound was then withdrawn. The IUD was loaded in a sterile manner and advanced into position. The string was visualized and cut to 3 cm. Tenaculum site hemostatic. All instruments removed from vagina. Patient tolerated the procedure well. NO complications were noted. Patient was instructed to call for fever over 100.4, significant pain unrelieved by Motrin, IUD expulsion, heavy bleeding, or abnormal discharge. In addition, the following clinical considerations were discussed with the patient to call for removal: A stroke or heart attack ,Very severe or migraine headaches ,Unexplained fever ,Yellowing of the skin or whites of the eyes, as these may be signs of serious liver problems , or suspected , Pelvic pain or pain during sex ,HIV positive seroconversion in herself or her partner , Possible exposure to sexually transmitted infections Unusual vaginal discharge or genital sores , severe vaginal bleeding or bleeding that lasts a long time, or if she misses a menstrual period, Inability to feel Mirena's threads Counseled the patient that the IUD does not protect against STI's, recommended use of condoms for the first 7 days post insertion and explained to the patient that condoms are recommended for patients at risk for sexually transmitted infections. Informed the patient that Mirena IUD is FDA approved for 8 years for contraception for 5 years for the treatment of heavy menses Instructed the patient to schedule a Follow up appointment in 4 to 6 weeks following insertion. This note was generated with a voice recognition program. Some errors may have been overlooked during the review of this note. Sometimes these errors may affect the content or meaning of a given sentence. 86426-NRW Insertion Procedure code (CPT) selection complete Office Meds Mirena 21 mcg/24 hr (up to 8 years) 52 mg intrauterine device Performing Provider: Jonathan Vee MD Performing Location: [facility] Documented (not given) by: Jonathan Vee MD on 07/20/25 12:12 Dose Route Admin Location Dispensed Lot Number Expiration Date NDC Dry Pan Operator 1 device intrauterine ea Total Dispensed Waste n/a n/a Assessment & Plan Assessment & Plan (1) Encounter for insertion of Mirena IUD: Code(s): Z30.430 - Encounter for insertion of intrauterine contraceptive device Category: Medical Plan: Mirena IUD inserted, see procedure note Orders: Orders AMB IUD Insertion/Removal - Practice Supplied Today Z30.430 - Encounter for insertion of intrauterine contraceptive device Medications: New Mirena (levonorgestrel) 1 device intrauterine ONCE 1 ea 0RF IUD insertion NS Z30.430 - Encounter for insertion of intrauterine contraceptive device Coding Level of Care Code Procedure Only Diagnoses Encounter for insertion of Mirena IUD Z30.430 CPT Codes Details - CPT: 34926-XLE Insertion ([id number])
[2025-07-20 11:57] VITALS: BP 100/66; BMI 34.9
== END 2025-07-20 12:56 | disposition home or self-care (01) ==
LOC: HO.HWS 11:53
PROVIDERS: PCP Family Medicine; Visit Provider Obstetrics & Gynecology
DX: Z30.430 Encounter for insertion of intrauterine contraceptive device (principal); Z32.02 Encounter for pregnancy test, result negative
CPT/HCPCS: 58300

== ENCOUNTER → 2025-07-20 11:53 | Outpatient (BNVA) | payer MEDICAID, SELFPAY | PROVIDERS: PCP Family Medicine; Visit Provider Obstetrics & Gynecology | DX: Z30.430 Encounter for insertion of intrauterine contraceptive device (principal) | CPT/HCPCS: 58300; 81025; J7298 ==

== ENCOUNTER 2025-08-04 10:29 | Outpatient (AMB) | payer MEDICAID, SELFPAY ==
--- NOTE | 2025-08-04 10:32 | MHC.OFFVIS ---
Vital Signs 08/04/25 10:37 Height 5 ft 5 in Weight 209 lb 15.986 oz BMI 34.9 Intake Visit Reasons: hemorrhoids, prolapsed Intake Note: Patient presents for an assessment for prolapsed hemorrhoids. Pt c/o; external, reports hemorrhoids are less inflamed now but she still has minimal discomfort, reports she initially had rectal bleeding but she has been using a rectal steroid cream pcp prescribed and it had been effective. Greige Goods Inspector Required: No Account Advisor: Account Advisor Present (Dayana-A) Accompanied by: Self / Same As Patient Allergies oxycodone Allergy (Severe, Verified 08/04/25 10:39) Nausea polyethylene glycol 3350 (From Miralax) Allergy (Mild, Verified 08/04/25 10:39) Hives Medication List - Last Reconciled 08/04/25 by Mike Baker MD acetaminophen ER 650 mg PO Q8H PRN baclofen 10 mg PO TID PRN diclofenac sodium 1% 2 grams topical DAILY PRN hydrocortisone 2.5% [place] naproxen 500 mg PO BID phentermine 37.5 mg PO QAM HPI HPI hemorrhoids, prolapsed: Details: [age] year old female referred for hemorrhoid problems. She says that she knows she has had hemorrhoids since she had been multiple pregnancies many years ago. However, she says that these really did not bother her much before. However, the past few months, she had been noticing periodic swelling and pain and discomfort. She says she had a severe episode of swelling and pain about 3 months ago. She also says that her hemorrhoids feel that they are always ?out?. She describes occasional bleeding. She does admit to occasional constipation. [facility] Medical History Internal and external prolapsed hemorrhoids MRSA (methicillin resistant Staphylococcus aureus) Arthritis GERD (gastroesophageal reflux disease) Pulmonary embolism Tear of meniscus of left knee Surgical History H/O shoulder surgery History of hip surgery H/O right knee surgery Family History Mother Hypertension Social History Are you a primary technical healthcare consultant to a significant other at home: No Do you presently have visiting nurse or other home services: No Alcohol intake: never Patient Tobacco Use Status: Never used Tobacco Current occupational status: employed 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 Sexual orientation: Straight/Heterosexual Gender identity: Female Review of Systems Const Denies chills and Denies fever(s) Card Denies chest pain, Denies dyspnea and Denies dyspnea on exertion Resp Denies cough, Denies dyspnea and Denies dyspnea on exertion GI Reports hematochezia, Denies change in bowel habits and Reports constipation Denies hematuria Musc Denies back pain, Reports arthralgias and Denies limited range of motion Neuro Denies focal weakness and Denies convulsions Psych Denies depression and Denies mood swings Physical Exam Vital Signs: BMI result Body Mass Index 34.9 Const General: comfortable and no acute distress Orientation/consciousness: patient oriented x3 Neck Neck: Yes no lymphadenopathy Resp Auscultation: clear to auscultation bilaterally Cardio Rhythm: regular rhythm GI Palpation (GI): Soft to palpation, nontender and no guarding Neuro General: patient oriented x3 Office Procedures Anoscopy She was placed in kneeling cris-knife position. The anoscope was gently inserted. A full examination of the anal canal was done. She has this large mixed hemorrhoidal column internal and external on the right posterior. There were no other lesions seen. There were other smaller hemorrhoidal columns anteriorly. There was no bleeding. There was no induration. 19745-Pavoprld Assessment & Plan Assessment & Plan (1) Internal and external prolapsed hemorrhoids: Code(s): K64.8 - Other hemorrhoids Category: Medical Plan: She has had this worsening complaints of swelling, pain and discomfort with her hemorrhoids. She does have this large internal external hemorrhoidal column with prolapse of the internal component on the posterior aspect. She therefore wants to proceed with hemorrhoidectomy. I explained to her the technique of hemorrhoidectomy and exam under anesthesia. I reviewed the risks including but not limited to bleeding, infections, postop pain, as well as the benefits and alternatives. I reviewed with her what to expect postoperatively. She understands and wants to proceed She states that she is undergoing knee surgery in about 2 weeks and she says she plans to having the hemorrhoid surgery once she has recovered from this. Coding Level of Care Code New Pt Level 3 (14316) Diagnoses Internal and external prolapsed hemorrhoids K64.8 CPT Codes Details - CPT: 62254-Oxelajnr ([id number])
[2025-08-04 10:37] VITALS: BMI 34.9
--- OUTSIDE RECORDS SUMMARY | 2025-08-04 12:02 | XMS_ITS | Clinical Summary ---
Author Organization [employer] Address [address] [place] [address] 7 [place] [address] Care Team Providers Care Medical Record Administrator Name Role Phone Eva Barajas Primary Care Provider + [phone] Allergies Active Allergy Reactions Criticality Noted Date Comments Polyethylene Glycol (Macrogol) Dizziness,Hives,Shor tness of breath High 05/27/2023 Polyethylene Glycol 3350 Dizziness 05/01/2021 Other reaction(s): Hives, Nausea / Vomiting Medications acetaminophen (Tylenol 8 Hour) 650 MG ER tablet Take 1 tablet (650 mg) by mouth every 8 (eight) hours if needed for mild pain. Do not crush, chew, or split. 60 tablet 1 03/15/20 25 026 Active naproxen (Naprosyn) 500 MG tablet TAKE [...] 30 capsule 2 06/23/20 25 026 Active Diclofenac Sodium 1 % gel APPLY 2 GRAMS TOPICALLY IN THE MORNING, AT NOON, IN THE EVENING AND AT BEDTIME NEEDED FOR PAIN 100 g 3 07/16/20 Active Diclofenac Sodium 1 % gel Apply 2 g topically if needed in the morning, at noon, in the evening, and at bedtime (pain). 150 g 3 03/15/20 Discontinued(Re order (will not trigger notification to Pharmacy)) polycarbophil (Fibercon) 625 MG tablet Take 1 tablet (625 mg) by mouth 2 times daily. 180 tablet 3 05/26/20 Discontinued famotidine (Pepcid) 20 MG tablet Take 1 tablet (20 mg) by mouth if needed in the morning and at bedtime for heartburn. 60 tablet 3 05/26/20 Discontinued Active Problems Problem Noted Date Diagnosed Date Chronic pain of both knees 05/24/2025 BMI 35.0-35.9,adult 05/27/2023 Chronic gastroesophageal reflux disease 06/04/20 Resolved Problems Problem Noted Date Diagnosed Date [...] Encounters Date Type Department Care Team Description 08/04/[address] [address] Eva Barajas DO 07/16/2025 Results Follow-Up [facility] [address] [place] [phone] Radha Flores FNP CBC auto differential, Prothrombin Time-INR, Basic Metabolic Panel 07/16/[address] [address] Eva Barajas DO 07/13/[address] [address] Eva Barajas DO Pre-op Notes faxed 07/12/2025 9:15 AM EST Office Visit [address] [address] Radha Flores FNP Preoperative examination (Primary Dx); Chronic pain of left knee 07/12/2025 Travel 07/06/2025 Telephone [facility] [address] [place] [phone] Eva Barajas DO Chart Prep 07/05/2025 Travel 06/24/[address] [address] Eva Barajas DO preop 06/23/2025 9:30 AM EDT Office Visit [address] [address] Eva Barajas DO Routine history and physical examination of adult (Primary Dx); Chronic gastroesophageal reflux disease; Chronic pain of both knees; Inflamed external hemorrhoid; PCB (post coital bleeding); Obesity (BMI 30-39.9); Dietary counseling; Exercise counseling 06/23/[address] [address] Eva Espinal DO 06/16/2025 Patient Outreach [address] [address] Eva Barajas, Pre-visit Planning ([facility] screening was completed on 03/15/2025) 06/15/[address] [address] Eva Barajas DO Chart Prep 06/08/2025 Orders Only [facility] External Provider, [facility] 06/04/2025 Refill [facility] [place] [address] Eva Barajas DO 05/26/2025 11:30 AM EDT Office Visit [address] [place] [address] Eva Barajas DO Inflamed external hemorrhoid (Primary Dx); History of Helicobacter pylori infection; Obesity (BMI 30-39.9); Encounter for immunization 05/26/2025 Orders Only [address] [address] Eva Barajas DO 05/26/2025 Travel 05/25/2025 Travel 05/25/[address] [address] Eva Barajas DO Chart Prep 05/21/2025 Orders Only [address] [address] Eva Barajas DO 05/05/2025 Orders Only [facility] External Provider, [facility] from Last 3 Months Immunizations Immunization Administration [...] Screening 06/23/2026 06/23/2025, 06/23/20 25 Tobacco Screening 07/13/2026 07/13/2025 Cervical Cancer Screening 05/17/2027 HPV/Cotest 05/17/2027 05/17/2022, [...] Procedure Name Priority Date/Time Associated Diagnosis Comments ECG 12-LEAD Routine 07/13/2025 9:17 AM EST Preoperative examination BASIC METABOLIC PANEL Routine 07/12/2025 10:10 AM EST Preoperative examination PROTHROMBIN TIME-INR Routine 07/12/2025 10:10 AM EST Preoperative examination CBC WITH AUTO DIFFERENTIAL Routine 07/12/2025 10:10 AM EST Preoperative examination T-SPOT(R).TB Routine 07/12/2025 10:10 AM EST Screening examination for pulmonary tuberculosis RPR (MONITOR) W/REFL TITER Routine 06/23/2025 11:24 [...] Recently Relevant to Health Maintenance Results * ECG 12 lead (07/13/2025 9:17 AM EST) Radha Marcos FNP - 07/13/2025 9:17 AM EST NSR [facility] ECG ORDERABLES Final Result * T-SPOT??.TB (07/12/2025 10:10 AM EST) T Spot TB Negative Negative [facility] Comment:A negative test resu lt does not exclude the possibilityof exposure to or infection with Mycobacteriumtuberculosis (M. tuberculosis). Patients with recentexposure to TB infected individuals exhibiting anegative T-SPOT.TB result should be considered forretesting within 6 weeks or if other relevant clinicalsymptoms indicate. Results from T-SPOT.TB testing mustbe used in conjunction with each individual'sepidemiological history, current medical status,and results of other diagnostic evaluations.The T-SPOT.TB test is qualitative and results arereported as positive, borderline, or negative, giventhat the test controls perform as expected. In linewith the Centers for Disease Control and Prevention's2010 recommendation to report quantitative measurementsalongside the qualitative result, the laboratoryprovides spot counts for informational purposes only.The T-SPOT.TB test should not be interpreted as aquantitative test. TS PANEL A 0 [facility] TS PANEL B 0 [facility] Negative Control Passed [facility] Positive Control Passed [facility] Comment:For additional infor mation, please refer tohttp://education.[employer]/faq/MHX168(This link is being provided for informational/educational purposes only.)THIS TEST WAS PERFORMED AT:[employer] [id number] [place] [address]ANNHGMUMARIAJOSE SINGER MD,PHD 07/12/2025 10:1 0 AM EST 07/12/2025 11:22 AM EST us Eva Barajas DO LAB BLOOD ORDERABLES Final R esult [facility] [address] [place] [phone] * (ABNORMAL) CBC auto differential (07/12/2025 10:10 AM EST) White Blood Count 8.5 4.8 - 10.8 X10*3/uL [facility] Red Blood Count 4.69 4.20 - 5.50 X10*6/uL [facility] Hemoglobin 14.3 12.0 - 16.0 g/dl [facility] Hematocrit 40.2 37.0 - 47.0 % [facility] Mean Corpuscular Volume 85.7 80.0 - 98.0 fL [facility] Mean Corpuscular Hemoglobin 30.5 27.0 - 33.0 pg [facility] Mean Corpuscular HGB Conc 35.6(H) 31.0 - 35.0 g/dl [facility] Red Cell Distribution Width 13.0 11.0 - 16.0 % [facility] Platelet Count 370 160 - 400 X10*3/uL [facility] Mean Platelet Volume 10.6 9.4 - 12.3 fL [facility] Neutrophils Percent Auto 61.0 45 - 73 % [facility] Imm Gran Pct Auto 0.4 0.0 - 0.4 % [facility] Lymphocytes Percent Auto 31.5 20 - 40 % [facility] Monocytes Percent Auto 6.0 2 - 11 % [facility] Eosinophils Percent Auto 0.5 0 - 4 % [facility] Basophils Percent Auto 0.6 0 - 2 % [facility] NRBC Pct Auto 0.0 0.0 - 0.2 /100WBC [facility] Neutrophils Absolute Auto 5.2 2.0 - 8.3 x10*3/uL [facility] Imm Gran Abs Auto 0.03 0.00 - 0.03 X10*3/uL [facility] Lymphocytes Absolute Auto 2.7 1.2 - 4.9 X10*3/uL [facility] Monocytes Absolute Auto 0.5 0.1 - 1.2 X10*3/uL [facility] Eosinophils Absolute Auto 0.0 0.0 - 0.4 X10*3/uL [facility] Basophils Absolute Auto 0.1 0.0 - 0.2 X10*3/uL [facility] NRBC Abs Auto 0.000 0.0 - 0.012 X10*3/uL [facility] Blood Venous blood specimen / Unknown 07/12/2025 10:10 AM EST 07/12/2025 11:22 AM EST [facility] LAB BLOOD ORDERABLES Final Re sult Performing Organization Address [facility] Co de Phone Number [facility] [address] [place] [phone] * Prothrombin Time-INR (07/12/2025 10:10 AM EST) Prothrombin Time 12.9 11.2 - 13.5 SEC [facility] INTERNATIONAL NORM RATIO 1.1 0.9 - 1.1 [facility] Comment:INTERNATIONAL NORMAL IZED RATIO (INR) REFERENCE RANGES Reference RangeFor patients not on anticoagulant therapy: 0.9 - 1.1INR ranges for oral anticoagulanttherapy:For prevention and treatment of venous thrombosis and pulmonary embolism: 2.0 - 3.0For acute myocardial infarction with aspirin therapy: 2.0 - 3.0For acute myocardial infarction without aspirin therapy: 3.0 - 4.0For patients with mechanical prosthetic heart valves: 2.5 - 3.5 Blood Venous blood specimen / Unknown 07/12/2025 10:10 AM EST 07/12/2025 11:22 AM EST [facility] LAB BLOOD ORDERABLES Final Re sult Performing Organization Address [facility] Co de Phone Number [facility] [address] [place] [phone] * (ABNORMAL) Basic Metabolic Panel (07/12/2025 10:10 AM EST) Only the most recent of2 resultswithin the time period is included. Sodium 138 135 - 145 mmol/L [facility] Potassium 4.0 3.3 - 5.1 mmol/L [facility] Chloride 106 96 - 108 mmol/L [facility] Carbon Dioxide 25 22 - 29 mmol/L [facility] Anion Gap 11(L) 12 - 20 [facility] Urea Nitrogen (BUN) 14 9 - 16 mg/dL [facility] Creatinine, Serum 0.78 0.5 - 1.4 mg/dL [facility] Estimated Glomerular Filt Rate >60 [facility] Comment:Chronic Kidney Disea se: Estimated GFR < 60 mL/min/1.35j7[place]auyyo Kidney Disease: Estimated GFR < 15 mL/min/1.73m2 Glucose 87 60 - 115 mg/dL [facility] Calcium 9.9 8.4 - 10.2 mg/dL [facility] Blood Venous blood specimen / Unknown 07/12/2025 10:10 AM EST 07/12/2025 11:22 AM EST [facility] LAB BLOOD ORDERABLES Final Re sult [facility] [address] [place] [phone] * Vitamin D, 25-Hydroxy, Total, Immunoassay (06/23/2025 11:24 AM EDT) Vitamin D 25-OH Total 37.6 >30 ng/mL [facility] Comment: Health Based Reference Values*< 20 ng/mL Dmgendbay55-48 ng/mL Insufficient> 30 ng/mL Sufficient*Candido KEE. N [...] Barajas DO LAB BLOOD ORDERABLES Final R [facility] Performing Organization Address [facility] Co de Phone Number [facility] [address] [place] [phone] * Hepatitis C Antibody with Reflex to HCV, RNA, Quantitative, Real-Time PCR (06/23/2025 11:24 AM EDT) Pathologist [facility] Hepatitis C Antibody Nonreactive Nonreactive [facility] Comment:Antibodies to HCV no t detected; does not exclude early acuteHCV infection. Blood Venous blood specimen / Unknown 06/23/2025 11:24 AM EDT 06/23/2025 1:04 PM EDT Eva Barajas DO LAB BLOOD ORDERABLES Final R esult Performing Organization Address [facility] Co de Phone Number [facility] [address] [place] [phone] * RPR (Monitor) with Reflex to??Titer (06/23/2025 11:24 AM EDT) RPR (Monitor) w/Refl Titer NON-REACTI VE NON-REACT MICHOACANO [facility] Comment:THIS TEST WAS PERFOR MED AT:[id number] [place] [phone] DAVIS MD Rapid Plasma Reagin Ab Titer TNP [facility] Blood Venous blood specimen / Unknown 06/23/2025 11:24 AM EDT 06/23/2025 1:04 PM EDT Eva Karl LAB BLOOD ORDERABLES Final R esult Performing Organization Address City/[facility]/ZIP Co de Phone Number [facility] [address] [place] [phone] * HIV-1/2 Antigen and Antibodies, Fourth Generation, with Reflexes (06/23/2025 11:24 AM EDT) HIV AB/AG Nonreactive Nonreactive [facility] Comment:HIV-1 p24 Ag and/or HIV-1/HIV-2 Ab not detected.A test result that is nonreactive does not exclude thepossibility of exposure to or infection with HIV-1 and/orHIV-2. Nonreactive results in this assay for individualswith prior exposure to HIV-1 and/or HIV-2 may be due toantigen and antibody levels that are below the limit ofdetection of this assay.The OmnireliantniStreaming Era HIV Ag/Ab Combo assay result andsupplemental assay results should be interpreted inconjunction with the patient's clinical presentation,history and other laboratory results. If the results areinconsistent with clinical evidence, additional testing issuggested to confirm the result. Blood Venous blood specimen / Unknown 06/23/2025 11:24 AM EDT 06/23/2025 1:04 PM EDT us Eva Barajas LAB BLOOD ORDERABLES Final R esult Performing Organization Address City/[facility]/ZIP Co de Phone Number [facility] [address] [place] [phone] * CBC (06/23/2025 11:24 AM EDT) White Blood Count 8.6 4.8 - 10.8 X10*3/uL [facility] Red Blood Count 4.53 4.20 - 5.50 X10*6/uL [facility] Hemoglobin 13.3 12.0 - 16.0 g/dl [facility] Hematocrit 38.0 37.0 - 47.0 % [facility] Mean Corpuscular Volume 83.9 80.0 - 98.0 fL [facility] Mean Corpuscular Hemoglobin 29.4 27.0 - 33.0 pg [facility] Mean Corpuscular HGB Conc 35.0 31.0 - 35.0 g/dl [facility] Red Cell Distribution Width 13.0 11.0 - 16.0 % [facility] Platelet Count 377 160 - 400 X10*3/uL [facility] Mean Platelet Volume 10.9 9.4 - 12.3 fL [facility] NRBC Pct Auto 0.0 0.0 - 0.2 /100WBC [facility] NRBC Abs Auto 0.000 0.0 - 0.012 X10*3/uL [facility] Blood Venous blood specimen / Unknown 06/23/2025 11:24 AM EDT 06/23/2025 1:04 PM EDT us Eva Barajas DO LAB BLOOD ORDERABLES Final R esult [facility] [address] [place] [phone] * TSH (06/23/2025 11:24 AM EDT) Thyroid Stimulating Hormone 1.37 0.32 - 4.0 uIU/mL [facility] Comment:TSH 3rd Generation ( [facility]) Blood Venous blood specimen / Unknown 06/23/2025 11:24 AM EDT 06/23/2025 1:04 PM EDT Eva Barajas LAB BLOOD ORDERABLES Final R esult Performing Organization Address City/[facility]/ZIP Co de Phone Number [facility] [address] [place] [phone] * T4, Free (06/23/2025 11:24 AM EDT) Free T4 (Free Thyroxine) 0.97 0.71 - 1.85 ng/dL [facility] Blood Venous blood specimen / Unknown 06/23/2025 11:24 AM EDT 06/23/2025 1:04 PM EDT Eva Barajas LAB BLOOD ORDERABLES Final R esult Performing Organization Address [facility] Co de Phone Number [facility] [address] [place] [phone] * Hemoglobin A1c (06/23/2025 11:24 AM EDT) Hemoglobin A1c 5.1 <6.0 % [facility] Comment:Hemoglobin A1C Refer ence Range Adults: 4.8 - 6.0 % Non diabetic: < 6.0 % Goal: < 7.0 %Additional Action Suggested: > 8.0 %Note: Hemoglobin A1c results are invalid for patients with abnormal amounts of HbF. Blood transfusions may impact the HbA1c concentration in the patient sample. Estimated Average Glucose 100 mg/dL [facility] Comment:eAG = Estimated ave rage glucose which is %A1C expressed asaverage glucose, using the formula of the V9Y-ZngmyfiTmjobqh Glucose study (ADAG), Diabetes Care, Vol.31,#8,2007 Blood Venous blood specimen / Unknown 06/23/2025 11:24 AM EDT 06/23/2025 1:04 PM EDT Eva Barajas DO LAB BLOOD ORDERABLES Final R esult Performing Organization Address [facility] Co de Phone Number [facility] [address] [place] [phone] * (ABNORMAL) Hepatic Function Panel (06/23/2025 11:24 AM EDT) Bilirubin, Total 1.8(H) 0.0 - 1.0 mg/dL [facility] Bilirubin, Direct 0.6(H) 0.0 - 0.5 mg/dL [facility] Aspartate Amino Transferase 23 5 - 31 U/L [facility] Alanine Aminotransferase 14 0 - 31 U/L [facility] Total Protein 7.9 6.5 - 8.0 g/dL [facility] Albumin Level 4.6 3.5 - 5.0 g/dL [facility] Alkaline Phosphatase 48 39 - 117 U/L [facility] Blood Venous blood specimen / Unknown 06/23/2025 11:24 AM EDT 06/23/2025 1:04 PM EDT us Eva Barajas DO LAB BLOOD ORDERABLES Final R esult [facility] [address] [place] [phone] * (ABNORMAL) Lipid Panel, Standard (06/23/2025 11:24 AM EDT) Triglycerides 71 <150 mg/dL [facility] Comment:Desirable Triglyceri de: less than 150 mg/dLBorderline High Triglyceride 150-199 mg/dLHigh Triglyceride: 200-499 mg/dLVery High Triglyceride: greater than or equal to 5OO mg/dL Cholesterol 158 <200 mg/dL [facility] Comment:Desirable Cholestero l: less than 200 mg/dLBorderline High Cholesterol: 200-239 mg/dLHigh Cholesterol: greater than 239 mg/dL LDL Cholesterol Calculated 103(H) <100 mg/dL [facility] Comment:Desirable LDL: less than 100 mg/dLNear Optimal/Above Optimal LDL: 110- 129 mg/dLBorderline High LDL: 130-159 mg/dLHigh LDL: 160-189 mg/dLVery High LDL: greater than or equal to 190 mg/dL HDL Cholesterol 41 >40 mg/dL [facility] Comment:Desirable HDL: great er than 40 mg/dL Note: This HDL assay may give artificially low results in patients with liver disease. Blood Venous blood specimen / Unknown 06/23/2025 11:24 AM EDT 06/23/2025 1:04 PM EDT us Eva Barajas DO LAB BLOOD ORDERABLES Final R esult [facility] [address] [place] [phone] * MR Knee w/o Contrast Right (06/08/2025 6:06 PM EDT) Anatomical Region Laterality Modality Magnetic Resonan ce 06/08/2025 6:06 PM EDT Narrative 06/09/2025 10:26 AM EDT [place] [address] Magnetic Resonance Report Signed Patient: Violeta Dong MR#: [id number] 81 : 1990 Acct:[id number] Age/Sex: 34 / F ADM Date: 06/08/25 Loc: HO.MRI Attending Dr: Renae Stone PA-C Ordering Physician: Renae Stone PA-C Date of Service: 06/08/25 Procedure(s): MR knee RT wo con Accession Number(s): [id number] cc: Catrachito Chang MD; Renae Stone PA-C [...] 06/09/25 1023 DD/ 1806 TD/TT: 06/08/25 1818 Copying Machine Repairer: ANA Procedure Note Donotuseinterpreter, Image - 06/09/[address] [address] Magnetic Resonance Report Signed Patient: Violeta Dong [facility]#: [id number] [birth year] : 1990Acct:[id number] Age/Sex: 34 / FADM Date: 06/08/25 Loc: HO.MRI Attending Dr: Renae Stone PA-C Ordering Physician: Renae Stone PA-C Date of Service: 06/08/25 Procedure(s): MR knee RT wo con Accession Number(s): [id number] cc: Catrachito Chang MD; Renae Stone PA-C [...] 06/09/25 1023 DD/ 1806 TD/TT: 06/08/25 1818 Copying Machine Repairer: ANA [facility] External Provider IMG MRI PROCEDURES Final Result * Helicobacter pylori, Urea Breath Test (05/26/2025 12:30 PM EDT) H. pylori Breath Test Negative Negative [facility] Comment:Antimicrobials, prot on pump inhibitors and bismuthpreparations are known to suppress H. pylori. Ingestingthese medications within two weeks prior to performing thebreath test may produce negative test results. A positiveresult is still clinically valid. 05/26/2025 12:3 0 PM EDT 05/26/2025 4:00 PM EDT Eva Barajas DO LAB BODY FLUIDS AND STOOLS O RDERABLES Final Result [facility] [address] [place] [phone] * QuantiFERON??-TB Gold Plus, 1 Tube (05/21/2025 9:42 AM EDT) Quantiferon -TB Gold Plus, 1 Tube NEGATIVE NEGATIVE [facility] Comment: Negative test result. M. tuberculosis complex infection unlikely. NIL 0.02 IU/mL [facility] MITOGEN-NIL 6.99 IU/mL [facility] TB1-NIL <0.00 IU/mL [facility] TB2-NIL <0.00 IU/mL [facility] Comment: The Nil tube value reflects [...] T-lymphocytes. For additional information, please refer to https://education.[employer]/faq/BGQ866 (This link is being provided for informational/ educational purposes only.) Your request to have a duplicate copy faxed has been acknowledged. Queued to: [id number] 05/21/2025 9:42 AM EDT 05/21/2025 9:43 AM EDT Narrative [facility] - 05/25/2025 12:32 PM EDT FASTING:NO AN UPDATE OR CORRECTION HAS BEEN MADE TO NAME FASTING: NO us Eva Barajas DO LAB BLOOD ORDERABLES Final R esult [facility] [address], [place] [phone] fav.or.it [facility] [address] [place] [phone] * Bacterial Vaginosis (05/20/2025 9:27 AM EDT) TRICHOMONAS VAGINALIS DETECTION BY PCR NOT DETECTED Not Detect [facility] BACTERIAL VAGINOSIS DETECTION BY PCR NEGATIVE Negative [facility] Comment:The BV organism targ ets [...] DETECTION BY PCR NOT DETECTED Not Detect [facility] Pippa glab krusei PCR NOT DETECTED Not Detect [facility] 05/20/2025 9:27 AM EDT 05/20/2025 5:14 PM EDT us Generic External Data Provider LAB MICROBIOLOGY - GENERAL ORDERABLES Final Result [facility] [address] [place] [phone] * Chlamydia/N. Gonorrhoeae RNA, TMA, Urogenitial (05/20/2025 9:27 AM EDT) CT PCR NOT DETECTED Not Detect. [facility] Comment:A not detected test result [...] psychologicalconsequences. NG PCR NOT DETECTED Not Detect. [facility] Comment:A not detected test result [...] LAB MICROBIOLOGY - GENERAL ORDERABLES Final Result [facility] [address] [place] [phone] * MR Knee w/o Contrast Left (05/05/2025 3:27 PM EDT) Anatomical Region Laterality Modality Magnetic Resonan ce 05/05/2025 3:27 PM EDT Narrative 05/05/2025 5:18 PM EDT [place] [address] Magnetic Resonance Report Signed Patient: Violeta Dong MR#: [id number] 81 : 1990 Acct:[id number] Age/Sex: 34 / F ADM Date: 05/05/25 Loc: HO.MRI Attending Dr: Renae Stone PA-C Ordering Physician: Renae Stone PA-C Date of Service: 05/05/25 Procedure(s): MR knee LT wo con Accession Number(s): [id number] cc: Eva Barajas Ta-Mara PA-C Reason for [...] 05/05/25 1715 DD/ 1527 TD/TT: 05/05/25 1642 Copying Machine Repairer: Procedure Note Donotuseinterpreter, Image - 05/05/2025 [place] [address] Magnetic Resonance Report Signed Patient: Violeta Dong MMR#: [id number] [birth year] : 1990Acct:[id number] Age/Sex: 34 / FADM Date: 05/05/25 Loc: HO.MRI Attending Dr: Renae Stone PA-C Ordering Physician: Renae Stone PA-C Date of Service: 05/05/25 Procedure(s): MR knee LT wo con Accession Number(s): [id number] cc: Eva Barajas,Ta-Idalia PA-C Reason for Exam: M17.12 - Unilateral [...] 05/05/25 1715 DD/ 1527 TD/TT: 05/05/25 1642 Copying Machine Repairer: [facility] External Provider IMG MRI PROCEDURES Final Result * HPV E6/E7 RFLX KEKE 16 18/45 (05/17/2022 11:56 AM EDT) HPV mRNA E6/E7 rflx Not Detected Not Detected [facility] Comment: Methodology: Sourcing Intern-Mediated Amplification This assay detects E6/E7 viral messenger RNA (mRNA) from 14 high-risk HPV types (16,18,31,33,35,39,45,51,52,56,58,59,66,68). Cervical sources are required for HPV testing. If a vaginal source from a patient who has had a total hysterectomy with removal of cervix was submitted, please contact the testing laboratory for alternative testing options. For additional information, please refer to http://education.[employer] Instruments/faq/[id number] (This link if provided for information/ educational purposes only.) THIS TEST WAS PERFORMED AT: [facility] [address] [place] [address],[place] [address] LORRAINE DAVIS MD 05/17/2022 11:5 6 AM EDT us Tamia Rosario HISTORICAL/NON ORDERABLE LABS Fi nal Result [facility] [address] from Last 3 Months or Most Recently Relevant to Health Maintenance Insurance [facility] C3 Care Teams Medical Record Administrator Relationship Specialty Start Date End Date Eva Barajas DO [address] [place] [address] PCP - General Family Medicine 09/02/18
--- OUTSIDE RECORDS SUMMARY | 2025-08-04 12:02 | XMS_ITS | Clinical Summary ---
Author Organization [facility] Address [address] [place] [address] Phone Care Team Providers Care Washer Engineer Name Role Phone JosieEva laughlin Primary Care Provider [phone] Allergies Active Allergy Reactions Criticality Noted Date [...] ACO C3 ACO C3 ACO C[address] [place] [place] [address] Care Teams Washer Engineer Relationship Specialty Start Date End Date Eva Barajas DO [address] [place] [address] PCP - General Family Medicine 05/29/21 Additional Source Comments The information contained in this document represents components of the legal health record. It is not the complete legal health record.[facility]
--- OUTSIDE RECORDS SUMMARY | 2025-08-04 12:02 | XMS_ITS | Encounter Summary ---
Author Organization [employer] Address [address] [place] [address] 7 [place] [address] Care Team Providers Care Directional Driller Name Role Phone Eva Barajas DO Primary Care Provider + [phone] Reason for Visit * Reason Onset Date Comments Preop Note 07/16/2025 Pre op Note faxe d to Dr. Sue Encounter Details Date Type Department Care Team ([facility] st Contact Info) Description 07/16/2025 Results Follow-Up [facility] [address] [place] [address] [facility] [address] [place] [address] CBC auto differential, Prothrombin Time-INR, Basic Metabolic Panel Social History Tobacco Use Types Packs/Day Years [...] Telephone Encounter - Yanique Martinez MA - 07/20/2025 2:28 PM EST ----- Message from [facility] sent at 07/16/2025 4:05 PM EST ----- Please send with Preop note. Thanks! ----- Message ----- From: Interface, Lab Results In Sent: 07/12/2025 11:40 AM EST To: [facility], [facility] documented in this encounter Plan of Treatment Not on file documented as of this encounter Visit Diagnoses Not on filedocumented in this encounter Additional Health Concerns Assessment Noted Time PHQ-9 Depression Total Score: 0 06/23/20 25 10:13 AM EDT documented as of this encounter Care Teams Directional Driller Relationship Specialty Start Date End Date Eva Barajas DO [address] [place] [address] PCP - General Family Medicine 09/02/18 documented as of this encounter
--- OUTSIDE RECORDS SUMMARY | 2025-08-04 12:02 | XMS_ITS | Encounter Summary ---
Author Organization [employer] Address [address] [place] [address] 7 [place] [address] Care Team Providers Care Mate First Name Role Phone Eva Barajas DO Primary Care Provider + [phone] Reason for Visit * Reason Comments Med Refill Encounter Details Date Type Department Care Team ([facility] st Contact Info) Description 08/04/2025 Refill [facility] [address] [place], [place] [phone] Eva Barajas DO [address] [place], [place] [phone] Social History Tobacco Use Types Packs/Day Years [...] documented as of this encounter Care Teams Mate First Relationship Specialty Start Date End Date Eva Barajas DO [address] [place] [address] PCP - General Family Medicine 09/02/18 documented as of this encounter
--- OUTSIDE RECORDS SUMMARY | 2025-08-04 12:02 | XMS_ITS | Encounter Summary ---
Author Organization [employer] Address [address] [place] [address] 7 [place] [address] Care Team Providers Care Interlibrary Loan Services Librarian Name Role Phone Eva Barajas DO Primary Care Provider + [phone] Encounter Details Date Type Department Care Team ([facility] st Contact Info) Description 05/02/[address] [facility] MED & PEDS [address] [place], [place] [phone] Eva Barajas DO [address] [place], [place] [phone] Social History Tobacco Use Types Packs/Day Years [...] - 05/02/2023 9:49 AM EDT Discard task. Scheduler Maintenance booked appt with Available slot. documented in this encounter Plan of Treatment Not on file documented as of this encounter Visit Diagnoses Not on filedocumented in this encounter Care Teams Interlibrary Loan Services Librarian Relationship Specialty Start Date End Date Eva Barajas DO [address] [place], [place] [phone] PCP - General Family Medicine 09/02/18 documented as of this encounter
== END 2025-08-04 10:54 | disposition home or self-care (01) ==
LOC: HO.HGS 10:29
PROVIDERS: PCP Family Medicine; Visit Provider Surgery
DX: K64.8 Other hemorrhoids (principal)
CPT/HCPCS: 46600; 99203

== ENCOUNTER → 2025-08-04 10:29 | Outpatient (BNVA) | payer MEDICAID, SELFPAY | PROVIDERS: PCP Family Medicine; Visit Provider Surgery | DX: K64.8 Other hemorrhoids (principal) | CPT/HCPCS: 46600; 99202 ==

== ENCOUNTER 2025-08-05 14:19 | Outpatient (AMB) | payer MEDICAID, SELFPAY ==
[2025-08-05 14:28] VITALS: BP 130/75; BMI 34.3
--- NOTE | 2025-08-05 14:28 | MHC.OFFVIS ---
Vital Signs 08/05/25 14:28 Height 5 ft 5 in Weight 206 lb BMI 34.3 BP 130/75 Blood Pressure Location Lt brachial Intake Visit Reasons: Preop LT knee arthroscopy 08/11/25 NE Intake Note: Violeta is a 34 year old female who presents today for a pre operative appointment for her left knee arthoscopy 08/11/25 NE. Allergies oxycodone Allergy (Severe, Verified 08/05/25 14:31) Nausea polyethylene glycol 3350 (From Miralax) Allergy (Mild, Verified 08/05/25 14:31) Hives HPI HPI Preop LT knee arthroscopy 08/11/25 NE: Details: Ms. Dong is a 34-year-old female who presents to the office today for preoperative history and physical examination pending left knee arthroscopy tentatively scheduled for 08/11/[address] Sue. [facility] and [facility]. Her PCP had declared the patient medium risk. Of note, the patient does have a past history of a pulmonary embolism after suffering multiple traumas from an accident. She was sedentary during this time. [facility] Medical History Internal and external prolapsed hemorrhoids MRSA (methicillin resistant Staphylococcus aureus) Arthritis GERD (gastroesophageal reflux disease) Pulmonary embolism Tear of meniscus of left knee Surgical History H/O shoulder surgery History of hip surgery H/O right knee surgery Family History Mother Hypertension Social History Are you a primary neonatal critical care nurse to a significant other at home: No Do you presently have visiting nurse or other home services: No Alcohol intake: never Patient Tobacco Use Status: Never used Tobacco Current occupational status: employed 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, [employer]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 Sexual orientation: Straight/Heterosexual Gender identity: Female Review of Systems Const All systems reviewed & are unremarkable except as noted in HPI and below Physical Exam Vital Signs: Last Vital Signs BP 130/75 08/05/25 14:28 BMI result Body Mass Index 34.3 Const General: cooperative and no acute distress Orientation/consciousness: patient oriented x3 Resp Effort & Inspection: normal respiratory effort and able to speak in complete sentences Cardio Peripheral pulses: Peripheral pulses 2+ throughout Neuro General: patient oriented x3 Extrem Other: Left knee skin is intact no erythema or joint effusion. She has full range of motion with crepitus. Tenderness over the medial joint line with a positive Damaris's. Calf supple and nontender neurovascularly intact. Assessment & Plan Assessment & Plan (1) Tear of meniscus of left knee: Code(s): S83.207A - Unspecified tear of unspecified meniscus, current injury, left knee, initial encounter Category: Medical Plan Ms. Dong is a 34-year-old female who presents to the office today for preoperative history and physical examination pending left knee arthroscopy tentatively scheduled for 08/11/[address] Sue. Patient was recently [facility] and [facility]. Her PCP had declared the patient medium risk. Of note, the patient does have a past history of a pulmonary embolism after suffering multiple traumas from an accident. She was sedentary during this time. The risks, benefits, and alternatives were discussed in detail with the patient. Risks include but are not limited to: bleeding, infection, blood clots (DVT/PE), stiffness, persistent pain, nerve/vessel injury, anesthesia risks, recurrence of symptoms, and need for further surgery. Benefits: pain relief, improved function, removal/repair of torn cartilage, improved mobility. Alternatives: continued non-operative management (physical therapy, medications, injections). The patient had ample opportunity to ask questions. All questions were answered to the patient's satisfaction. The patient verbalized understanding and agreed to move forward with a left knee arthroscopy with Dr. Sue. The patient demonstrates understanding of the risks, benefits and alternatives. The surgical consent form was given to the patient for additional review and signed by the patient with myself as a witness.? Post operative medications were sent to the [facility] pharmacy while in the office today with instructions for the pharmacy to bring to the PACU on the date of surgery.? Hydrocodone 5/325mg PO Q8H PRN pain, quantity 21 tabs for 7 days. Patient also reports that she has had significant nausea from taking oxycodone in the past. I have also prescribed a transdermal scope patch that she may wear the morning of surgery to assist with any nausea postoperatively. Orders: Orders PT Evaluation and Treatment Today S83.206A - Unspecified tear of unspecified meniscus, current injury, right knee, initial encounter Medications: New hydrocodone-acetaminophen 5-325 mg Partial Fill upon patient request. Pharmacy to please bring to the PACU on date of surgery 08/11/25 1 tab PO Q8H PRN 21 tabs 0RF pain 7 days scopolamine base (Transderm-Scop) 1 patch transdermal Q3D PRN 4 ea 0RF nausea and vomiting Coding Level of Care Code Global (67406) Diagnoses Tear of meniscus of left knee S83.207A
--- OUTSIDE RECORDS SUMMARY | 2025-08-05 19:54 | XMS_ITS | Data Portability ---
Author Organization [facility], [address] Address [address] [place] [address] Assessment No assessment recorded. Plan of Treatment Reminders Order Date Submit Date Provider Last Modified By Organization Details Last Modified Time Details Appointments None recorded. Lab Mycobacteri um tuberculosi s stimulated gamma interferon, qual, blood 2022 023 [facility] ([facility], [address] [place] [address], [place], [address], 18:05:47 Referral None recorded. Procedures None recorded. [...] INCUBA TION PERFOR MED. Not Available [facility] ([facility]) [address] [facility], [place], [address], 03/16/2023 18:05:47 03/14/20 23 03/16/2023 QUANT IFERO [...] ol for the test. Not Available [facility] ([facility]) [address] [place], [address], 03/16/2023 18:05:47 03/14/20 23 03/16/2023 QUANT IFERO N-TB GOLD PLUS quantiferon TB1 Ag value 0.01 IU/mL Not Available [facility] ([facility]) [address] [place], [address], 03/16/2023 18:05:47 03/14/20 23 03/16/2023 QUANT IFERO N-TB GOLD PLUS quantiferon TB2 Ag value 0.02 IU/mL Not Available [facility] ([facility]) [address] [place], [address], 03/16/2023 18:05:47 03/14/20 23 03/16/2023 QUANT IFERO N-TB GOLD PLUS quantiferon nil value 0.01 IU/mL Not Available [facility] ([facility]) [address] [place], [address], 03/16/2023 18:05:47 03/14/20 23 03/16/2023 QUANT IFERO N-TB GOLD PLUS quantiferon mitogen value >10.00 IU/mL Not Available [facility] ([facility]) [address] [place], [address], 03/16/2023 18:05:47 03/14/20 23 03/16/2023 QUANT IFERO [...] y metho dolog y Not Available [facility] ([facility]) [address], [place], [address], 03/16/2023 18:05:47 Result Notes None recorded. Procedures [...] ICD10 Code Diagnosis IMO Codes Diagnosis Note [id number] [address] [facility] [place] [address] 03/28/2022 14:43:34 03/28/2022 16:35:27 [id number] Yamileth Prabhakar MD [address] [facility] [place] [address] 03/14/2023 08:28:07 03/14/2023 09:25:48 History and physical examination, occupation [id number] Z02.1 Health Concerns Section Related Observation LastModified by Organization Detai ls LastModified Time None Recorded Concern Status LastModified by Organization Details LastModified Time None Recorded Advance Directives Directive None Recorded Payers Insurance Date Sequence Insurance Name Policy Number Policy Noble Covered Member ID Noble Member ID Guarantor Name 03/14/2023 [facility] RN NETWORK [facility] Rn Network [facility] Violeta Dong OBGyjadiel Episode No OBEpisode recorded.
== END 2025-08-05 14:55 | disposition home or self-care (01) ==
LOC: HO.HOS 14:20
PROVIDERS: PCP Family Medicine; Visit Provider Physician Assistant
DX: S83.207A Unspecified tear of unspecified meniscus, current injury, left knee, initial encounter (principal)
CPT/HCPCS: 99024

== ENCOUNTER → 2025-08-05 14:19 | Outpatient (BNVA) | payer MEDICAID, SELFPAY | PROVIDERS: PCP Family Medicine; Visit Provider Physician Assistant | DX: Z01.818 Encounter for other preprocedural examination (principal); S83.207A Unspecified tear of unspecified meniscus, current injury, left knee, initial encounter; X58.XXXA Exposure to other specified factors, initial encounter; Y93.9 Activity, unspecified; Y92.9 Unspecified place or not applicable; Y99.9 Unspecified external cause status | CPT/HCPCS: 99212 ==

== ENCOUNTER 2025-08-19 09:02 | Outpatient (AMB) | payer MEDICAID, SELFPAY ==
--- NOTE | 2025-08-19 09:07 | MHC.OFFVIS ---
Intake Visit Reasons: OV, Pt cx surgery, wants to discuss treatment opt Intake Note: Violeta is a 34 year old female who presents today for a follow up of her left knee to discuss her treatment options. Allergies oxycodone Allergy (Severe, Verified 08/19/25 09:14) Nausea polyethylene glycol 3350 (From Miralax) Allergy (Mild, Verified 08/19/25 09:14) Hives Medication List - Last Reconciled 08/19/25 by Renae Stone PA-C acetaminophen ER 650 mg PO Q8H PRN baclofen 10 mg PO TID PRN diclofenac sodium 1% 2 grams topical DAILY PRN hydrocodone-acetaminophen 5-325 mg 1 tab PO Q8H PRN 7 days hydrocortisone 2.5% ND naproxen 500 mg PO BID phentermine 37.5 mg PO QAM scopolamine base (Transderm-Scop) 1 patch transdermal Q3D PRN HPI HPI OV, Pt cx surgery, wants to discuss treatment opt: Details: 34-year-old female presents to the office today to discuss options in regard to her left knee. She was previously scheduled for a left knee arthroscopy on 08/11/2025 however she became ill with high fevers body aches and chills. She contacted the office to postpone her surgery but later received information her surgery would be canceled. There was some miscommunication about rescheduling and cancelling her surgeries and confusion as to whether or not we would be able to continue providing her with surgical intervention. COUNT INCLUDES [facility] Medical History Internal and external prolapsed hemorrhoids MRSA (methicillin resistant Staphylococcus aureus) Arthritis GERD (gastroesophageal reflux disease) Pulmonary embolism Tear of meniscus of left knee Surgical History H/O shoulder surgery History of hip surgery H/O right knee surgery Family History Mother Hypertension Social History Are you a primary career development manager to a significant other at home: No Do you presently have visiting nurse or other home services: No Alcohol intake: never Patient Tobacco Use Status: Never used Tobacco Current occupational status: employed 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 She has full range of motion with crepitus. Tenderness over the medial joint line with a positive Damaris's. Calf supple and nontender neurovascularly intact. Assessment & Plan Assessment & Plan (1) Tear of meniscus of left knee: Code(s): S83.207A - Unspecified tear of unspecified meniscus, current injury, left knee, initial encounter Category: Medical Plan: I had a lengthy discussion with the patient about the circumstances revolving the cancellation and rescheduling of her surgery. From reviewing the patient's chart I can only see 1 time that her surgery was canceled which was in fact due to an illness. I made sure her surgery was rescheduled for 09/08/2025 which the patient is content with. All questions were answered and she will contact our office if there are any further questions or concerns. I explained to the patient the hospital call her the day before and she is to remain NPO after midnight the night before surgery. Of note patient does have a history of DVTs and will require DVT prophylaxis for up to 6 weeks postoperatively. Coding Level of Care Code Est Pt Level 3 (75587) Add On Problem Visit Only Diagnoses Tear of meniscus of left knee S83.207A
--- OUTSIDE RECORDS SUMMARY | 2025-08-19 10:10 | XMS_ITS | Encounter Summary ---
Author Organization [employer] Address [address] [place] [address] [address] [place] [address] Care Team Providers Care Curriculum Assistant Principal Name Role Phone Eva Barajas DO Primary Care Provider + [phone] Encounter Details Date Type Department Care Team ([facility] st Contact Info) Description 05/02/2023 Telephone [facility] MED & PEDS [address] [place], [place] [phone] Eva Barajas DO [address] [place], [place] [phone] Social History Tobacco Use Types Packs/Day Years [...] - 05/02/2023 9:49 AM EDT Discard task. Cinder Crew Worker booked appt with Available slot. documented in this encounter Plan of Treatment Not on file documented as of this encounter Visit Diagnoses Not on filedocumented in this encounter Care Teams Curriculum Assistant Principal Relationship Specialty Start Date End Date Eva Barajas DO [address] [place], [place] [phone] PCP - General Family Medicine 09/02/18 documented as of this encounter
--- OUTSIDE RECORDS SUMMARY | 2025-08-19 10:11 | XMS_ITS | Encounter Summary ---
Author Organization [employer] Address [address] [place] [address] 7 [place] [address] Care Team Providers Care Soap Drier Operator Name Role Phone Eva Barajas DO Primary Care Provider + [phone] Reason for Visit * Reason Comments Med Refill Encounter Details Date Type Department Care Team ([facility] st Contact Info) Description 08/19/2025 Refill [facility] [address] [place], [place] [phone] Eva Barajas DO [address] [place], [place] [phone] Social History Tobacco Use Types Packs/Day Years [...] documented as of this encounter Care Teams Soap Drier Operator Relationship Specialty Start Date End Date Eva Barajas DO [address] [place] [address] PCP - General Family Medicine 09/02/18 documented as of this encounter
--- OUTSIDE RECORDS SUMMARY | 2025-08-19 10:11 | XMS_ITS | Clinical Summary ---
Author Organization [facility] Address [address] [place] [address] Phone Care Team Providers Care Boring Machine Set Up Operator Jig Name Role Phone JosieEva laughlin Primary Care [...] topic Medical Devices Not on file Insurance [facility] C3 ACO C3 ACO C3 ACO C3 ACO C3 ACO C3 ACO C3 ACO C3 ACO C3 ACO [facility] Care Teams Boring Machine Set Up Operator Jig Relationship Specialty Start Date End Date Eva Barajas DO [address] [place] [address] PCP - General Family Medicine 05/29/21 Additional Source Comments The information contained in this document represents components of the legal health record. It is not the complete legal health record.[facility]
--- OUTSIDE RECORDS SUMMARY | 2025-08-19 10:11 | XMS_ITS | Clinical Summary ---
Author Organization [employer] Address [address] [place] [address] 7 [place] [address] Care Team Providers Care Firmware Manager Name Role Phone Eva Barajas DO Primary Care Provider + [phone] Allergies Active Allergy Reactions Criticality Noted Date Comments Polyethylene Glycol (Macrogol) Dizziness,Hives,Shor tness of breath High 05/27/2023 Polyethylene Glycol 3350 Dizziness 05/01/2021 Other reaction(s): Hives, Nausea / Vomiting Medications naproxen (Naprosyn) 500 MG tablet TAKE 1 [...] NEEDED FOR PAIN 100 g 3 07/16/20 25 Active acetaminophen (Tylenol 8 Hour) 650 MG ER tablet TAKE 1 TABLET BY MOUTH EVERY 8 HOURS IF NEEDED FOR MILD PAIN. DO NOT CRUSH, CHEW, OR SPLIT. 60 tablet 1 12/03/20 25 Active acetaminophen (Tylenol 8 Hour) 650 MG ER tablet Take 1 tablet (650 mg) by mouth every 8 (eight) hours if needed for mild pain. Do not crush, chew, or split. 60 tablet 1 03/15/20 25 025 Discontinued Active Problems Problem Noted Date Diagnosed [...] Encounters Date Type Department Care Team Description 08/19/2025 Refill [facility] [address] [place] [phone] Eva Barajas DO 08/04/2025 [address]ill [address] [place] [address] Eva Barajas DO 07/16/2025 Results Follow-Up [facility] [place] [address] [place], Radha, ELECTROCARDIOGRAPH REPAIRER CBC auto differential, Prothrombin Time-INR, Basic Metabolic Panel 07/16/[address] [address] Eva Barajas DO 07/13/[address] [address] Eva Barajas DO Pre-op Notes faxed 07/12/2025 9:15 AM EST Office Visit [address] [place] [address] Radha Flores, ELECTROCARDIOGRAPH REPAIRER Preoperative examination (Primary Dx); Chronic pain of left knee 07/12/2025 Travel 07/06/2025 Telephone [facility] [address] [place] [address] Eva Barajas DO Chart Prep 07/05/2025 Travel 06/24/[address] [address] Eva Barajas DO preop 06/23/2025 9:30 AM EDT Office Visit [address] [address] Eva Barajas DO Routine history and physical examination of adult (Primary Dx); Chronic gastroesophageal reflux disease; Chronic pain of both knees; Inflamed external hemorrhoid; PCB (post coital bleeding); Obesity (BMI 30-39.9); Dietary counseling; Exercise counseling 06/23/[address] [address] Eva Barajas DO 06/16/2025 Patient Outreach [address] [address] Eva Barajas DO Pre-visit Planning (SDOH screening was completed on 03/15/2025) 06/15/[address] [place] [address] [facility] [place] [id number] Eva Barajas DO Chart Prep 06/08/2025 Orders Only [facility] External Provider, [facility] 06/04/2025 Refill [facility] [place] [id number] Eva Barajas DO 05/26/2025 11:30 AM EDT Office Visit [facility] [place] [address] Eva Barajas DO Inflamed external hemorrhoid (Primary Dx); History of Helicobacter pylori infection; Obesity (BMI 30-39.9); Encounter for immunization 05/26/2025 Orders Only [facility] [place] [id number] Eva Barajas DO 05/26/2025 Travel 05/25/2025 Travel 05/25/2025 Telephone [facility] [place] [address] Eva Barajas DO Chart Prep 05/21/2025 Orders Only [facility] [place] [address] Eva Barajas DO from Last 3 Months Immunizations Immunization Administration [...] VAGINOSIS PANEL Routine 05/20/2025 9:27 AM EDT ZZZ HISTORICAL HPV E6/E7 RFLX KEKE 16 18/45 Routine 05/17/2022 11:56 AM EDT from Last 3 Months or Most Recently Relevant to Health Maintenance Results * ECG 12 lead (07/13/2025 9:17 AM EST) Radha Marcos FNP - 07/13/2025 9:17 AM EST NSR us Radha Westhope ELECTROCARDIOGRAPH REPAIRER ECG ORDERABLES Final Result * T-SPOT??.TB (07/12/2025 10:10 AM EST) Pathologist [facility] T Spot TB Negative Negative [facility] Comment:A negative test resu lt [...] as aquantitative test. TS PANEL A 0 [facility] TS PANEL B 0 [facility] Negative Control Passed [facility] Positive Control Passed [facility] Comment:For additional infor michoacano, please refer tohttp://education.PATHEOS/faq/LDR975(This link is being provided for informational/educational purposes only.)THIS TEST WAS PERFORMED AT:[employer]/MEL[id number] [place] [address]JTXVURVMARIAJOSE SINGER MD,PHD 07/12/2025 10:1 0 AM EST 07/12/2025 11:22 AM EST us Eva Barajas DO LAB BLOOD ORDERABLES Final R esult [facility] [address] [place] [phone] * (ABNORMAL) CBC auto differential (07/12/2025 10:10 AM EST) [facility] White Blood Count 8.5 4.8 - 10.8 X10*3/uL [facility] Red Blood Count 4.69 4.20 - 5.50 X10*6/uL [facility] Hemoglobin 14.3 12.0 - 16.0 g/dl [facility] Hematocrit 40.2 37.0 - 47.0 % [facility] Mean Corpuscular Volume 85.7 80.0 - 98.0 fL [facility] Mean Corpuscular Hemoglobin 30.5 27.0 - 33.0 pg [facility] Mean Corpuscular HGB Conc 35.6(H) 31.0 - 35.0 g/dl [facility] Red Cell Distribution Width 13.0 11.0 - 16.0 % [facility] Platelet Count 370 160 - 400 X10*3/uL [facility] Mean Platelet Volume 10.6 9.4 - 12.3 fL [facility] Neutrophils Percent Auto 61.0 45 - 73 % [facility] Imm Gran Pct Auto 0.4 0.0 - 0.4 % [facility] Lymphocytes Percent Auto 31.5 20 - 40 % [facility] Monocytes Percent Auto 6.0 2 - 11 % [facility] Eosinophils Percent Auto 0.5 0 - 4 % [facility] Basophils Percent Auto 0.6 0 - 2 % [facility] NRBC Pct Auto 0.0 0.0 - 0.2 /100WBC [facility] Neutrophils Absolute Auto 5.2 2.0 - 8.3 x10*3/uL [facility] Imm Gran Abs Auto 0.03 0.00 - 0.03 X10*3/uL [facility] Lymphocytes Absolute Auto 2.7 1.2 - 4.9 X10*3/uL [facility] Monocytes Absolute Auto 0.5 0.1 - 1.2 X10*3/uL [facility] Eosinophils Absolute Auto 0.0 0.0 - 0.4 X10*3/uL [facility] Basophils Absolute Auto 0.1 0.0 - 0.2 X10*3/uL [facility] NRBC Abs Auto 0.000 0.0 - 0.012 X10*3/uL [facility] Blood Venous blood specimen / Unknown 07/12/2025 10:10 AM EST 07/12/2025 11:22 AM EST [facility] LAB BLOOD ORDERABLES Final Re sult Performing Organization Address [facility] Co de Phone Number [facility] [address] [place] [phone] * Prothrombin Time-INR (07/12/2025 10:10 AM EST) Prothrombin Time 12.9 11.2 - 13.5 SEC [facility] INTERNATIONAL NORM RATIO 1.1 0.9 - 1.1 [facility] Comment:INTERNATIONAL NORMAL IZED RATIO (INR) [...] 10:10 AM EST 07/12/2025 11:22 AM EST [facility] LAB BLOOD ORDERABLES Final Re sult Performing Organization Address [facility] de Phone Number [facility] [address] [place] [phone] * (ABNORMAL) Basic Metabolic Panel (07/12/2025 10:10 AM EST) Only the most recent of2 resultswithin the time period is included. Sodium 138 135 - 145 mmol/L [facility] Potassium 4.0 3.3 - 5.1 mmol/L [facility] Chloride 106 96 - 108 mmol/L [facility] Carbon Dioxide 25 22 - 29 mmol/L [facility] Anion Gap 11(L) 12 - 20 [facility] Urea Nitrogen (BUN) 14 9 - 16 mg/dL [facility] Creatinine, Serum 0.78 0.5 - 1.4 mg/dL [facility] Estimated Glomerular Filt Rate >60 [facility] Comment:Chronic Kidney Disea se: Estimated GFR < 60 mL/min/1.75q8Mcbmsr Kidney Disease: Estimated GFR < 15 mL/min/1.73m2 Glucose 87 60 - 115 mg/dL [facility] Calcium 9.9 8.4 - 10.2 mg/dL [facility] Blood Venous blood specimen / Unknown 07/12/2025 10:10 AM EST 07/12/2025 11:22 AM EST [facility] LAB BLOOD ORDERABLES Final Re sult [facility] [address] [place] [phone] * Vitamin D, 25-Hydroxy, Total, Immunoassay (06/23/2025 11:24 AM EDT) Vitamin D 25-OH Total 37.6 >30 ng/mL [facility] Comment: Health Based Reference Values*< 20 ng/mL Dvcltnsqh96-64 ng/mL Insufficient> 30 ng/mL Sufficient*Candiod KEE. N Engl J Med. 2007;357:266-280There is [...] ORDERABLES Final R esult Performing Organization Address [facility]/ZIP Co de Phone Number [facility] [address] [place] [phone] * Hepatitis C Antibody with Reflex to HCV, RNA, Quantitative, Real-Time PCR (06/23/2025 11:24 AM EDT) Hepatitis C Antibody Nonreactive Nonreactive [facility] Comment:Antibodies to HCV no t detected; does not exclude early acuteHCV infection. Blood Venous blood specimen / Unknown 06/23/2025 11:24 AM EDT 06/23/2025 1:04 PM EDT us Eva Barajas DO LAB BLOOD ORDERABLES Final R esult Performing Organization Address [facility] Co de Phone Number [facility] [address] [place] [phone] * RPR (Monitor) with Reflex to??Titer (06/23/2025 11:24 AM EDT) RPR (Monitor) w/Refl Titer NON-REACTI VE NON-REACT MICHOACANO [facility] Comment:THIS TEST WAS PERFOR MED AT:[facility] [place] [id number] DAVIS MD Rapid Plasma Reagin Ab Titer TNP [facility] Blood Venous blood specimen / Unknown 06/23/2025 11:24 AM EDT 06/23/2025 1:04 PM EDT us Eva Jurcsak DO LAB BLOOD ORDERABLES Final R esult Performing Organization Address City/[facility]/ZIP Co de Phone Number [facility] [address] [place] [phone] * HIV-1/2 Antigen and Antibodies, Fourth Generation, with Reflexes (06/23/2025 11:24 AM EDT) HIV AB/AG Nonreactive Nonreactive [facility] Comment:HIV-1 p24 Ag and/or HIV-1/HIV-2 Ab not detected.A test result that is nonreactive does not exclude thepossibility of exposure to or infection with HIV-1 and/orHIV-2. Nonreactive results in this assay for individualswith prior exposure to HIV-1 and/or HIV-2 may be due toantigen and antibody levels that are below the limit ofdetection of this assay.The Claro HIV Ag/Ab Combo assay result andsupplemental assay results should be interpreted inconjunction with the patient's clinical presentation,history and other laboratory results. If the results areinconsistent with clinical evidence, additional testing issuggested to confirm the result. Blood Venous blood specimen / Unknown 06/23/2025 11:24 AM EDT 06/23/2025 1:04 PM EDT us Eva Barajas DO LAB BLOOD ORDERABLES Final R esult Performing Organization Address City/[facility]/ZIP Co de Phone Number [facility] [address] [place] [phone] * CBC (06/23/2025 11:24 AM EDT) White Blood Count 8.6 4.8 - 10.8 X10*3/uL [facility] Red Blood Count 4.53 4.20 - 5.50 X10*6/uL [facility] Hemoglobin 13.3 12.0 - 16.0 g/dl [facility] Hematocrit 38.0 37.0 - 47.0 % [facility] Mean Corpuscular Volume 83.9 80.0 - 98.0 fL [facility] Mean Corpuscular Hemoglobin 29.4 27.0 - 33.0 pg [facility] Mean Corpuscular HGB Conc 35.0 31.0 - 35.0 g/dl [facility] Red Cell Distribution Width 13.0 11.0 - 16.0 % [facility] Platelet Count 377 160 - 400 X10*3/uL [facility] Mean Platelet Volume 10.9 9.4 - 12.3 fL [facility] NRBC Pct Auto 0.0 0.0 - 0.2 /100WBC [facility] NRBC Abs Auto 0.000 0.0 - 0.012 X10*3/uL [facility] Blood Venous blood specimen / Unknown 06/23/2025 11:24 AM EDT 06/23/2025 1:04 PM EDT us Eva Barajas DO LAB BLOOD ORDERABLES Final R esult Performing Organization Address City/[facility]/ZIP Co de Phone Number [facility] [address] [place] [phone] * TSH (06/23/2025 11:24 AM EDT) Thyroid Stimulating Hormone 1.37 0.32 - 4.0 uIU/mL [facility] Comment:TSH 3rd Generation ( [facility]) Blood Venous blood specimen / Unknown 06/23/2025 11:24 AM EDT 06/23/2025 1:04 PM EDT Eva Barajas DO LAB BLOOD ORDERABLES Final R esult Performing Organization Address City/[facility]/ZIP Co de Phone Number [facility] [address] [place] [phone] * T4, Free (06/23/2025 11:24 AM EDT) Free T4 (Free Thyroxine) 0.97 0.71 - 1.85 ng/dL [facility] Blood Venous blood specimen / Unknown 06/23/2025 11:24 AM EDT 06/23/2025 1:04 PM EDT Eva Barajas LAB BLOOD ORDERABLES Final R esult Performing Organization Address [facility] Co de Phone Number [facility] [address] [place] [phone] * Hemoglobin A1c (06/23/2025 11:24 AM EDT) Hemoglobin A1c 5.1 <6.0 % [facility] Comment:Hemoglobin A1C Refer ence Range Adults: 4.8 - 6.0 % Non diabetic: < 6.0 % Goal: < 7.0 %Additional Action Suggested: > 8.0 %Note: Hemoglobin A1c results are invalid for patients with abnormal amounts of HbF. Blood transfusions may impact the HbA1c concentration in the patient sample. Estimated Average Glucose 100 mg/dL [facility] Comment:eAG = Estimated ave rage glucose which is %A1C expressed asaverage glucose, using the formula of the H9A-YfpuxmpRnbkmij Glucose study (ADAG), Diabetes Care, Vol.31,#8,Apr. 2007 Blood Venous blood specimen / Unknown 06/23/2025 11:24 AM EDT 06/23/2025 1:04 PM EDT Eva Barajas DO LAB BLOOD ORDERABLES Final R esult Performing Organization Address City/[facility] Co de Phone Number [facility] [address] [place] [phone] * (ABNORMAL) Hepatic Function Panel (06/23/2025 11:24 AM EDT) Bilirubin, Total 1.8(H) 0.0 - 1.0 mg/dL [facility] Bilirubin, Direct 0.6(H) 0.0 - 0.5 mg/dL [facility] Aspartate Amino Transferase 23 5 - 31 U/L [facility] Alanine Aminotransferase 14 0 - 31 U/L [facility] Total Protein 7.9 6.5 - 8.0 g/dL [facility] Albumin Level 4.6 3.5 - 5.0 g/dL [facility] Alkaline Phosphatase 48 39 - 117 U/L [facility] Blood Venous blood specimen / Unknown 06/23/2025 11:24 AM EDT 06/23/2025 1:04 PM EDT Eva Barajas DO LAB BLOOD ORDERABLES Final R esult [facility] [address], [place] [phone] * (ABNORMAL) Lipid Panel, Standard (06/23/2025 11:24 AM EDT) Triglycerides 71 <150 mg/dL [facility] Comment:Desirable Triglyceri de: less than 150 mg/dLBorderline High Triglyceride 150-199 mg/dLHigh Triglyceride: 200-499 mg/dLVery High Triglyceride: greater than or equal to 5OO mg/dL Cholesterol 158 <200 mg/dL [facility] Comment:Desirable Cholestero l: less than 200 mg/dLBorderline High Cholesterol: 200-239 mg/dLHigh Cholesterol: greater than 239 mg/dL LDL Cholesterol Calculated 103(H) <100 mg/dL [facility] Comment:Desirable LDL: less than 100 mg/dLNear Optimal/Above Optimal LDL: 110- 129 mg/dLBorderline High LDL: 130-159 mg/dLHigh LDL: 160-189 mg/dLVery High LDL: greater than or equal to 190 mg/dL HDL Cholesterol 41 >40 mg/dL [facility] Comment:Desirable HDL: great er than 40 mg/dL Note: This HDL assay may give artificially low results in patients with liver disease. Blood Venous blood specimen / Unknown 06/23/2025 11:24 AM EDT 06/23/2025 1:04 PM EDT Eva Barajas DO LAB BLOOD ORDERABLES Final R esult [facility] [address] [place] [phone] * MR Knee w/o Contrast Right (06/08/2025 6:06 PM EDT) Anatomical Region Laterality Modality Magnetic Resonan ce 06/08/2025 6:06 PM EDT Narrative 06/09/2025 10:26 AM EDT [address] [address] Magnetic Resonance Report Signed Patient: Violeta Dong MR#: [id number] 81 : 1990 Acct:[id number] Age/Sex: 34 / F ADM Date: 06/08/25 Loc: HO.MRI Attending Dr: Renae Stone PA-C Ordering Physician: Renae Stone PA-C Date of Service: 06/08/25 Procedure(s): MR knee RT wo con Accession Number(s): [id number] cc: Catrachito Chang MD; Renae Stone PA-C [...] 06/09/25 1023 DD/ 1806 TD/TT: 06/08/25 1818 Corporation Officer: ANA Procedure Note Donotuseinterpreter, Image - 06/09/2025 [place] [address] Magnetic Resonance Report Signed Patient: Violeta Dong [facility]#: [id number] [birth year] : 1990Acct:[id number] Age/Sex: 34 / FADM Date: 06/08/25 Loc: HO.MRI Attending Dr: Renae Stone PA-C Ordering Physician: Renae Stone PA-C Date of Service: 06/08/25 Procedure(s): MR knee RT wo con Accession Number(s): [id number] cc: Catrachito Chang MD; Renae Stone PA-C [...] 06/09/25 1023 DD/ 1806 TD/TT: 06/08/25 1818 Corporation Officer: ANA [facility] External Provider IMG MRI PROCEDURES Final Result * Helicobacter pylori, Urea Breath Test (05/26/2025 12:30 PM EDT) H. pylori Breath Test Negative Negative [facility] Comment:Antimicrobials, prot on pump inhibitors and bismuthpreparations are known to suppress H. pylori. Ingestingthese medications within two weeks prior to performing thebreath test may produce negative test results. A positiveresult is still clinically valid. 05/26/2025 12:3 0 PM EDT 05/26/2025 4:00 PM EDT Eva Barajas DO LAB BODY FLUIDS AND STOOLS O RDERABLES Final Result [facility] [address] [place] [phone] * QuantiFERON??-TB Gold Plus, 1 Tube (05/21/2025 9:42 AM EDT) Quantiferon -TB Gold Plus, 1 Tube NEGATIVE NEGATIVE [facility] Comment: Negative test result. M. tuberculosis complex infection unlikely. NIL 0.02 IU/mL [facility] MITOGEN-NIL 6.99 IU/mL [facility] TB1-NIL <0.00 IU/mL [facility] TB2-NIL <0.00 IU/mL [facility] Comment: The Nil tube value reflects [...] T-lymphocytes. For additional information, please refer to https://education.[employer].Ber[employer]Bio/faq/GBH964 (This link is being provided for informational/ educational purposes only.) Your request to have a duplicate copy faxed has been acknowledged. Queued to: [id number] 05/21/2025 9:42 AM EDT 05/21/2025 9:43 AM EDT Narrative [facility] - 05/25/2025 12:32 PM EDT FASTING:NO AN UPDATE OR CORRECTION HAS BEEN MADE TO NAME FASTING: NO Eva Barajas DO LAB BLOOD ORDERABLES Final R esult [facility] [address] [place] [address] [facility] [address] [place] [address] * Bacterial Vaginosis (05/20/2025 9:27 AM EDT) TRICHOMONAS VAGINALIS DETECTION BY PCR NOT DETECTED Not Detect [facility] BACTERIAL VAGINOSIS DETECTION BY PCR NEGATIVE Negative [facility] Comment:The BV organism targ ets [...] DETECTION BY PCR NOT DETECTED Not Detect [facility] Pippa glab krusei PCR NOT DETECTED Not Detect [facility] 05/20/2025 9:27 AM EDT 05/20/2025 5:14 PM EDT Generic External Data Provider LAB MICROBIOLOGY - GENERAL ORDERABLES Final Result [facility] [address] [place] [phone] * Chlamydia/N. Gonorrhoeae RNA, TMA, Urogenitial (05/20/2025 9:27 AM EDT) CT PCR NOT DETECTED Not Detect. [facility] Comment:A not detected test result [...] psychologicalconsequences. NG PCR NOT DETECTED Not Detect. [facility] Comment:A not detected test result [...] LAB MICROBIOLOGY - GENERAL ORDERABLES Final Result [facility] [address] [place] [phone] * HPV E6/E7 RFLX KEKE 16 18/45 (05/17/2022 11:56 AM EDT) HPV mRNA E6/E7 rflx Not Detected Not Detected [facility] Comment: Methodology: Extension Work Director-Mediated Amplification This assay detects E6/E7 viral messenger RNA (mRNA) from 14 high-risk HPV types (16,18,31,33,35,39,45,51,52,56,58,59,66,68). Cervical sources are required for HPV testing. If a vaginal source from a patient who has had a total hysterectomy with removal of cervix was submitted, please contact the testing laboratory for alternative testing options. For additional information, please refer to http://education.PATHEOS/faq/GFQ790n3 (This link if provided for information/ educational purposes only.) THIS TEST WAS PERFORMED AT: [facility] [address] [place] [address] [address],[place] [address] LORRAINE DAVIS MD 05/17/2022 11:5 6 AM EDT us Tamia Rosario HISTORICAL/NON ORDERABLE LABS Fi nal Result Performing Organization Address City/[facility]/ZIP Co de Phone Number [facility] [address] from Last 3 Months or Most Recently Relevant to Health Maintenance Insurance [facility] Care Teams Firmware Manager Relationship Specialty Start Date End Date Eva Barajas DO [address] [place] [phone] PCP - General Family Medicine 09/02/18
--- OUTSIDE RECORDS SUMMARY | 2025-08-19 10:11 | XMS_ITS | Encounter Summary ---
Author Organization [employer] Address [address] [place] [address] [address] [place] [address] Care Team Providers Care Carton Repairer Name Role Phone Eva Barajas DO Primary Care Provider + [phone] Reason for Visit * Reason Onset Date Comments Preop Note 07/16/2025 Pre op Note faxe d to Dr. Sue Encounter Details Date Type Department Care Team ([facility] st Contact Info) Description 07/16/2025 Results Follow-Up [facility] [address] [place] [address] [facility] [address] [place] [address] CBC auto differential, Prothrombin Time-INR, Basic Metabolic [...] 07/20/2025 2:28 PM EST ----- Message from [facility] sent at 07/16/2025 4:05 PM EST ----- Please send with Preop note. Thanks! ----- Message ----- From: Interface, Lab Results In Sent: 07/12/2025 11:40 AM EST To: [facility], [facility] documented in this encounter Plan of Treatment Not on file documented as of this encounter Visit Diagnoses Not on filedocumented in this encounter Additional Health Concerns Assessment Noted Time PHQ-9 Depression Total Score: 0 06/23/20 25 10:13 AM EDT documented as of this encounter Care Teams Carton Repairer Relationship Specialty Start Date End Date Eva Barajas DO [address] [place] [address] PCP - General Family Medicine 09/02/18 documented as of this encounter
== END 2025-08-19 10:24 | disposition home or self-care (01) ==
LOC: HO.HOS 09:03
PROVIDERS: PCP Family Medicine; Visit Provider Physician Assistant
DX: S83.207A Unspecified tear of unspecified meniscus, current injury, left knee, initial encounter (principal)
CPT/HCPCS: 99213

== ENCOUNTER → 2025-08-19 09:02 | Outpatient (BNVA) | payer MEDICAID, SELFPAY | PROVIDERS: PCP Family Medicine; Visit Provider Physician Assistant | DX: Z01.818 Encounter for other preprocedural examination (principal); S83.207D Unspecified tear of unspecified meniscus, current injury, left knee, subsequent encounter | CPT/HCPCS: 99212 ==